=== PATIENT | male | born 1955 | race American Indian/Alaskan Native ===

== ENCOUNTER 2021-08-20 02:29 | Inpatient (IN) | payer MEDICARE, OTHER ==
[2021-08-20] MEDS ORDERED: SODIUM CHLORIDE 0.9% 1,000 ML IV STA (03:05)
[2021-08-20] MEDS ORDERED: MORPHINE 2 MG/ML CARPUJECT IVP STA (03:05)
[2021-08-20] MEDS ORDERED: ONDANSETRON 4 MG/2 ML VIAL IVP STA (03:05)
--- NOTE | 2021-08-20 03:10 | ED Physician Documentation ---
PD HPI ABD PAIN - Stated complaint Stated Complaint: CHEST/BACK PX - Chief complaint Chief Complaint: Cardiac - History obtained from History obtained from: Patient - Additional information Additional information: Patient is a 66-year-old male with No significant past medical history presenting for evaluation of epigastric abdominal pain that started suddenly at 10:00. The pain feels sharp. He has associated nausea and vomiting. The pain is migrated to the Mid back. He denies pain higher in the back or in the chest. He has never had similar pain. Nothing makes it better or worse. He denies eating anything that would have upset his stomach. He denies alcohol use. He denies drug use. Denies abnormal urination or difficulty with bowel movements.Patient tried aspirin at home without improvement in his symptoms. Review of Systems Constitutional: denies: Fever Nose: denies: Congestion Cardiac: denies: Chest pain / pressure Respiratory: denies: Dyspnea, Cough GI: reports: Abdominal Pain, Nausea, Vomiting : denies: Dysuria, Hematuria Musculoskeletal: reports: Back pain. denies: Neck pain Neurologic: denies: Headache PD PAST MEDICAL HISTORY - Past Medical History Cardiovascular: None Respiratory: None Endocrine/Autoimmune: None GI: Other : Frequency HEENT: Chronic vision loss, Other Psych: None Musculoskeletal: None Derm: None - Present Medications Home Medications: Ambulatory Orders Medication Instructions Recorded Confirmed No Known Home Medications 08/20/21 08/20/21 - Allergies Allergies/Adverse Reactions: Allergies Allergy/AdvReac Type Severity Reaction Status Date / Time No Known Drug Allergies Allergy Verified 08/20/21 02:46 PD ED PE NORMAL - General General: Alert and oriented X 3, No acute distress, Well developed/nourished - HEENT HEENT: Atraumatic, Moist mucous membranes - Neck Neck: Supple, no meningeal sign - Cardiac Cardiac: RRR, No murmur, Strong equal pulses - Respiratory Respiratory: No respiratory distress, Clear bilaterally - Abdomen Abdomen: Normal bowel sounds, Soft, Non distended, Other (Epigastric tenderness to palpation) - Back Back: No CVA TTP, No spinal TTP - Derm Derm: Warm and dry - Extremities Extremities: No edema - Neuro Neuro: Normal speech - Psych Psych: Normal mood Results - Vitals Vitals: Vital Signs - 24 hr 08/20/21 08/20/21 08/20/21 02:40 03:20 03:31 Temperature 35.6 C L Heart Rate 72 78 Respiratory 19 20 Rate Blood Pressure 149/78 H 132/80 H O2 Saturation 98 98 08/20/21 08/20/21 03:46 05:00 Temperature 36.4 C L 36.2 C L Heart Rate 87 Respiratory 16 Rate Blood Pressure 155/94 H O2 Saturation 92 Oxygen O2 Source Room air - EKG (time done) 0305 Rate: Rate (enter#) (68) Rhythm: NSR [place]: Normal Ischemia: No: ST depression - Labs Labs: Laboratory Tests 08/20/21 08/20/21 08/20/21 02:55 02:55 02:55 WBC 18.2 H RBC 4.95 Hgb 13.6 L Hct 43.6 MCV 88.1 MCH 27.5 MCHC 31.2 L RDW 14.6 Plt Count 271 MPV 10.3 Neut # (Auto) 16.0 H Lymph # (Auto) 1.4 L Luce # (Auto) 0.7 Eos # (Auto) 0.0 Baso # (Auto) 0.0 Absolute Nucleated RBC 0.00 Nucleated RBC % 0.0 Sodium 140 Potassium 3.5 Chloride 103 Carbon Dioxide 24 Anion Gap 13.0 BUN 11 Creatinine 1.3 H Estimated GFR (MDRD) 55 L Glucose 222 H Calcium 8.9 Total Bilirubin 0.5 AST 23 ALT 15 Alkaline Phosphatase 70 Troponin I High Sens 3.4 Total Protein 7.4 Albumin 4.0 Globulin 3.4 Albumin/Globulin Ratio 1.2 Lipase 1404 H SARS-CoV-2 (PCR) 08/20/21 04:15 WBC RBC Hgb Hct MCV MCH MCHC RDW Plt Count MPV Neut # (Auto) Lymph # (Auto) Luce # (Auto) Eos # (Auto) Baso # (Auto) Absolute Nucleated RBC Nucleated RBC % Sodium Potassium Chloride Carbon Dioxide Anion Gap BUN Creatinine Estimated GFR (MDRD) Glucose Calcium Total Bilirubin AST ALT Alkaline Phosphatase Troponin I High Sens Total Protein Albumin Globulin Albumin/Globulin Ratio Lipase SARS-CoV-2 (PCR) NOT DETECTED PD MEDICAL DECISION MAKING - ED course Complexity details: reviewed results, re-evaluated patient, d/w patient ED course: Patient with epigastric pain radiating to his back. Vital signs are stable. EKG is without acute ischemia and troponin is negative. Patient is epigastric tenderness and labs as well as exam are concerning for pancreatitis. CT scan c onfirms diagnosis as well. Patient had significant pain requiring multiple doses of pain medications. He is aware of need for admission. Does not appear septic. 0550- Discussed with overnight hospitalist, Dr. Espinoza who agrees to admit the patient. Departure - Departure Disposition: 66 [facility] DC/Xfer Clinical Impression: Acute pancreatitis Qualifiers: Pancreatitis type: idiopathic Acute pancreatitis complication: no infection or necrosis Qualified Code(s): K85.00 - Idiopathic acute pancreatitis without necrosis or infection Condition: Stable Discharge Date/Time: 08/20/21 06:15
[2021-08-20 03:16] LABS: BASOPHILS % (AUTO) 0.2 %; EOSINOPHILS % (AUTO) 0.1 %; HCT - HEMATOCRIT 43.6 % (42.0-52.0); HGB - HEMOGLOBIN 13.6 g/dL (14.0-18.0); LYMPHOCYTES # (AUTO) 1.4 10^3/uL (1.5-3.5); LYMPHOCYTES % (AUTO) 7.8 %; MEAN CORPUSCULAR HEMOGLOBIN 27.5 pg (27.0-31.0); MEAN CORPUSCULAR HGB CONC 31.2 g/dL (32.0-36.0); MEAN CORPUSCULAR VOLUME 88.1 fL (80.0-94.0); MEAN PLATELET VOLUME 10.3 fL (7.4-11.4); MONOCYTES # (AUTO) 0.7 10^3/uL (0.0-1.0); MONOCYTES % (AUTO) 3.7 %; NEUTROPHILS % (AUTO) 87.9 %; PLT - PLATELET COUNT 271 10^3/uL (130-450); RED BLOOD COUNT 4.95 10^6/uL (4.70-6.10); RED CELL DISTRIBUTION WIDTH 14.6 % (12.0-15.0); WHITE BLOOD COUNT 18.2 x10^3/uL (4.8-10.8)
[2021-08-20] MEDS ORDERED: HYDROmorphone 1 MG/ML CARPUJECT IVP STA ×2 (03:30→04:04)
[2021-08-20 04:02] LABS: ALBUMIN/GLOBULIN RATIO 1.2 (1.0-2.2); BILIRUBIN,TOTAL 0.5 mg/dL (0.2-1.0); CALCIUM 8.9 mg/dL (8.5-10.3); CREATININE 1.3 mg/dL (0.6-1.2); POTASSIUM 3.5 mmol/L (3.5-5.0); TOTAL PROTEIN 7.4 g/dL (6.7-8.2)
[2021-08-20] MEDS ORDERED: fentaNYL 100 MCG/2 ML VIAL IVP STA ×2 (04:42→08:29)
[2021-08-20] MEDS: D5NS W/20 MEQ KCL 1,000 ML IV SCH ×2 (06:37→16:37)
[2021-08-20] MEDS: SODIUM CHLORIDE FLUSH 0.9% 10 ML SYRINGE IVP PRN (06:37)
[2021-08-20] MEDS: HYDROmorphone 1 MG/ML CARPUJECT IVP PRN ×8 (06:37→23:36)
[2021-08-20] MEDS: ONDANSETRON 4 MG/2 ML VIAL IVP PRN ×2 (06:37→16:26)
[2021-08-20] MEDS: SODIUM CHLORIDE FLUSH 0.9% 10 ML SYRINGE IVP SCH ×3 (07:39→23:36)
--- NOTE | 2021-08-20 07:49 | HISTORY & PHYSICAL EXAMINATION ---
Chief Complaint - Chief Complaint Chief Complaint: epigastric pain History of Present Illness - Admitted From Admitted From:: [facility] ED - History Obtained From Records Reviewed: yes History obtained from: patient - History of Present Illness HPI Comment/Other: Patient is a 66-year-old male who presented to the ED with complaint of severe epigastric pain which he describes as a dull ache. He also complains of radiation to his back. Specifically the mid thoracic area. Symptoms started around 10:30 PM the previous night. He had just eaten a chicken pot pie couple of hours prior and thought his symptoms were due to food poisoning. The abdominal pain was associated with a feeling of abdominal distention. The symptoms subsided 2 hours after onset but then returned intensely. He took NyQuil and aspirin in an attempt to address the pain but with no success. As a result he came to the emergency department. Upon arrival to the ED he vomited around 3 AM. Work-up included a lipase level check which was 1404. His white blood cell count was elevated at 18.2. CT of the abdomen/pelvis showed findings of acute pancreatitis. There was punctate calcification in the pancreatic head near the expected location of the common bile duct. Gallstone pancreatitis was in consideration .The patient was presented for admission for further treatment. At the time of exam the patient had already received 2 doses of Dilaudid 1 mg each and fentanyl 50 mg however he appeared restless and in an excruciating amount of pain. It was such that he was unable to stay in 1 position for any length of time. For concern about an acute abdomen lactic acid was checked and noted to be 4.8. CT angio of the abdomen/pelvis was done and noted to be unremarkable. There was no evidence of large vessel stenosis, aneurysm or dissection. The acute pancreatitis was again noted without evidence of abscess, free air or pancreatic necrosis. The patient denied chest pain, dyspnea, fever or chills. History - Past Medical History Cardiovascular: reports: None Respiratory: reports: None Neuro: reports: None Endocrine/Autoimmune: reports: None GI: reports: Other : reports: Frequency HEENT: reports: Chronic vision loss, Other Psych: reports: None Musculoskeletal: reports: None Derm: reports: None MRSA Hx?: No - Past Surgical History Other past surgical history: Patient denies any previous surgeries - Family & Social History Family History Comment/Other: Patient's father was diabetic. He reports significant cancer history on the maternal side of his family. Living arrangement: At home Living Situation: Alone Social History Notes: He lives alone. He works at [employer]. He is independent of activities of daily living. He does not use tobacco products, alcohol or recreational substances. - POLST Patient has POLST: No POLST Status: Full Code Meds/Allgy - Home Medications Home Medications: Ambulatory Orders Medication Instructions Recorded Confirmed No Known Home Medications 08/20/21 08/20/21 - Allergies Allergies/Adverse Reactions: Allergies Allergy/AdvReac Type Severity Reaction Status Date / Time No Known Drug Allergies Allergy Verified 08/20/21 02:46 Review of Systems - Constitutional Constitutional: denies: Fatigue, Fever, Chills - Eyes Eyes: denies: Pain - Ears, Nose & Throat Ears, Nose & Throat: denies: Ear pain, Vertigo, Sore throat - Cardiovascular Cariovascular: denies: Chest pain, Edema, Lightheadedness, Syncope - Respiratory Respiratory: denies: Cough, Sputum production, Wheezing, SOB at rest, SOB with exertion - Gastrointestinal Gastrointestinal: reports: Abdominal pain, Nausea, Vomiting. denies: Abdominal distention, Constipation, Diarrhea - Genitourinary Genitourinary: denies: Dysuria, Frequency, Urgency, Hematuria - Musculoskeletal Musculoskeletal: reports: Back pain. denies: Muscle pain, Muscle aches, Stiffness - Integumentary Integumentary: denies: Rash, Pruritis, Lesions - Neurological Neurological: denies: General weakness, Headache, Dizziness - Psychiatric Psychiatric: denies: Depression, Anxiety - Endocrine Endocrine: denies: Polyuria, Polydypsia - Hematologic/Lymphatic Hematologic/Lymphatic: denies: Anemia, Bruising, Petechiae Prior Level of Functionality: He is independent of activities of daily living. Exam - Vital Signs Vital Signs: Vital Signs x48h Temp Pulse Pulse Resp BP BP Pulse Ox 08/20/21 07:38 36.4 C L 93 21 147/84 H 96 08/20/21 06:25 36.3 C L 92 18 147/80 H 93 08/20/21 05:00 36.2 C L 87 16 155/94 H 92 08/20/21 03:46 36.4 C L 08/20/21 03:31 35.6 C L 08/20/21 03:20 78 20 132/80 H 98 08/20/21 02:40 72 19 149/78 H 98 - Physical Exam General Appearance: positive: Alert, Moderate distress, Severe distress Eyes Bilateral: positive: PERRL, EOMI ENT: positive: No signs of dehydration Neck: positive: No JVD, Trachea midline Respiratory: positive: Chest non-tender, No respiratory distress, Breath sounds nml. negative: Wheezes, Rales, Rhonchi Cardiovascular: positive: Regular rate & rhythm, No murmur Abdomen: positive: No organomegaly, Nml bowel sounds, Tenderness. negative: Guarding, Rebound Back: positive: Nml inspection Skin: positive: Color nml, No rash, Warm, Dry Extremities: positive: Non-tender, Full ROM, Nml appearance, No pedal edema Neurologic/Psychiatric: positive: Oriented x3, Motor nml, Mood/affect nml Conclusion/Plan - Problem List (1) Acute pancreatitis Conclusion/Plan: Etiology undetermined. Gallstone pancreatitis initially suspected. However abdominal ultrasound was negative for any stones. There was no bile duct dilatation. CT angiogram of the abdomen was repeated due to severity of pain. This was negative for dissection, Stenosis or aneurysm. Pain management with Dilaudid IV as needed. N.p.o. for now. Initial lipase was 1404. We will trend lipase daily. IV hydration with normal saline at 100 mL/h. Qualifiers: Pancreatitis type: idiopathic Acute pancreatitis complication: no infection or necrosis Qualified Code(s): K85.00 - Idiopathic acute pancreatitis without necrosis or infection (2) Leukocytosis Conclusion/Plan: Reactive versus infectious. White count initially was 18. This improved to 16. Patient is afebrile. We will continue to monitor for now. If patient becomes febrile will obtain blood cultures and initiate empiric antibiotics. (3) Lactic acidosis Conclusion/Plan: Etiology undetermined. CT and CT angio of the abdomen pelvis was done. This was negative for abscess or pancreatic necrosis. It was also negative for any dissection, aneurysm or stenosis. Patient receiving IV hydration. Initial lactic acid was 4.8. Repeat lactic acid 4. Will trend. - Lab Results Fish Bones: 08/20/21 07:31 08/20/21 07:31 Core Measures - Anticipated LOS I expect patient to be DC'd or transferred within 96 hours.: Yes - DVT/VTE - Prophylaxis VTE/DVT Device ordered at admit?: Yes VTE/DVT Prophylaxis med ordered at admit?: Yes
[2021-08-20 07:50] LABS: BASOPHILS % (AUTO) 0.1 %; HCT - HEMATOCRIT 42.5 % (42.0-52.0); HGB - HEMOGLOBIN 13.4 g/dL (14.0-18.0); LYMPHOCYTES # (AUTO) 0.5 10^3/uL (1.5-3.5); LYMPHOCYTES % (AUTO) 2.9 %; MEAN CORPUSCULAR HEMOGLOBIN 27.6 pg (27.0-31.0); MEAN CORPUSCULAR HGB CONC 31.5 g/dL (32.0-36.0); MEAN CORPUSCULAR VOLUME 87.6 fL (80.0-94.0); MEAN PLATELET VOLUME 9.6 fL (7.4-11.4); MONOCYTES # (AUTO) 0.5 10^3/uL (0.0-1.0); NEUTROPHILS # (AUTO) 15.1 10^3/uL (1.5-6.6); NEUTROPHILS % (AUTO) 93.8 %; PLT - PLATELET COUNT 264 10^3/uL (130-450); RED BLOOD COUNT 4.85 10^6/uL (4.70-6.10); RED CELL DISTRIBUTION WIDTH 14.6 % (12.0-15.0); WHITE BLOOD COUNT 16.1 x10^3/uL (4.8-10.8)
[2021-08-20 07:56] LABS: CALCIUM 8.4 mg/dL (8.5-10.3); CREATININE 1.2 mg/dL (0.6-1.2); MAGNESIUM 2.2 mg/dL (1.7-2.8); POTASSIUM 3.9 mmol/L (3.5-5.0)
--- NOTE | 2021-08-20 08:07 | XRAY Report ---
PROCEDURE: Chest 1 View X-Ray INDICATIONS: pain TECHNIQUE: One view of the chest was acquired. COMPARISON: None FINDINGS: Surgical changes and devices: None. Lungs and pleura: No pleural effusions or pneumothorax. Lungs are clear. Mediastinum: Mediastinal contours appear normal. Heart size is normal. Bones and chest wall: No suspicious bony lesions. Overlying soft tissues appear unremarkable. IMPRESSION: No acute cardiopulmonary disease process. Reviewed by: Jane Lauren MD, PhD on 08/20/2021 8:06 AM PDT Approved by: Jane Lauren MD, PhD on 08/20/2021 8:06 AM PDT Station ID: [id number]
--- NOTE | 2021-08-20 08:40 | CT Report ---
PROCEDURE: Abdomen/Pelvis WO INDICATIONS: pancreatitis/elevated WBC TECHNIQUE: Noncontrast 5 mm thick sections acquired from the diaphragms to the symphysis. 5 mm coronal and sagi ttal reformats were then performed. For radiation dose reduction, the following was used: automated exposure control, adjustment of mA and/or kV according to patient size. COMPARISON: None. FINDINGS: Image quality: Excellent. ABDOMEN: Lung bases: Tiny right minor fissure juxta fissural node. Minor patchy opacities at the right posteri or lung base suggestive of atelectasis. Heart size is normal. Solid organs: Several round and some irregular hypodensities in the liver consistent with cysts. Spl een size is normal. There is mild peripancreatic inflammation and moderate inflammation and fluid lay ering along the anterior pararenal fascia extending caudally into the right lower quadrant. Punctate calcification in the pancreatic head near the expected location of the common duct. No other gallston es identified. Gallbladder, adrenal glands, and kidneys are normal. Tiny left upper pole parapelvic c yst present. Peritoneum and bowel: Stomach and small bowel loops are within normal limits. The colon is largely de compressed and there are several diverticula in the descending colon. Small amount of fluid layers al joanne the anterior pararenal fascia. No free air. Nodes and vessels: Several borderline lymph nodes are present in the right lower quadrant mesentery. No retroperitoneal adenopathy. Aorta and IVC are of normal caliber. Miscellaneous: No ventral hernias. PELVIS: Genitourinary: Bladder wall thickness is normal. There is a diverticulum arising from the right late ral urinary bladder. Prostate gland is moderately enlarged. Miscellaneous: Bilateral small fat-containing inguinal hernias. No pelvic adenopathy. Bones: Partial ankylosis of the sacroiliac joints. No suspicious bony lesions. No vertebral body co mpression fractures. IMPRESSION: 1. Findings of acute pancreatitis. 2. Punctate calcification in the pancreatic head near the expected location of the common duct. Galls tone pancreatitis should be considered. Alternatively, this may be sequelae of chronic pancreatitis i f this calcification is not intraductal. 3. Several hepatic cysts. 4. Descending colon diverticulosis. 5. Prostatomegaly. 6. Preliminary report concordant with final interpretation. Reviewed by: Rut Raymundo MD on 08/20/2021 8:39 AM PDT Approved by: Rut Raymundo MD on 08/20/2021 8:39 AM PDT Station ID: [id number]
--- NOTE | 2021-08-20 08:57 | Ultrasound Report ---
PROCEDURE: Abdomen Limited INDICATIONS: abdominal pain TECHNIQUE: Real-time focused scanning was performed of the abdomen, with image documentation. COMPARISON: CT of abdomen and pelvis from the same day. FINDINGS: Liver is normal in size. Increased liver parenchymal echotexture is seen. Multiple well-circumscribed anechoic area again seen scattered in liver parenchyma unchanged from CT study and measures up to 3. 3 x 2.0 x 2.4 cm in size in right hepatic lobe. No gross solid-appearing hepatic lesion. There is no gallstone. No gallbladder wall thickening or pericholecystic fluid. No sonographic Caldwell 's sign. No intrahepatic biliary ductal dilatation is seen. Common bile duct measures up to 4.9 mm in diameter and is within normal limits. Pancreas is obscured by overlying bowel gas. Right kidney measures 10.7 cm in length and 1.9 cm in cortical thickness. No hydronephrosis or nephro lithiasis. No solid-appearing renal lesion. IMPRESSION: 1. Hepatic steatosis and multiple hepatic cysts as above. This was also seen on CT study. No gross so lid-appearing hepatic lesion. 2. Normal-appearing gallbladder. No biliary ductal dilatation. 3. Pancreas is obscured by overlying bowel gas. Reviewed by: Levar Branch MD on 08/20/2021 8:55 AM PDT Approved by: Levar Branch MD on 08/20/2021 8:55 AM PDT Station ID: [id number]
--- NOTE | 2021-08-20 11:09 | PHARMACY PROGRESS NOTE ---
- Best Possible Medication History Admit Date and Time: 08/20/21 0602 Processed by: Pharmacy Medication History completed: Yes Patient Interview: Pt unable to participate Secondary Source(s): Insurance records As the person ultimately responsible for medication therapy, providers are able to order a medication from an existing home medication list in [facility] via the "Reconcile Routine" prior to Confirmation of that medication by support coordinator. Such practice is discouraged except when the physician, in their clinical judgment, deems that a medical need exists for a medication without regard to previous use.
[2021-08-20] MEDS ORDERED: KETOROLAC 15 MG/ML VIAL IVP PRN (12:08)
[2021-08-20] MEDS ORDERED: IOPAMIDOL-300 50 ML VIAL ONE (13:05)
--- NOTE | 2021-08-20 13:41 | CONSULTATION NOTE ---
Referring Provider Consult Date: 08/20/21 Chief Complaint - Chief Complaint Chief Complaint: upper abdominal pain History of Present Illness - Admitted From Admitted From:: ed - History Obtained From Records Reviewed: yes History obtained from: pt Exam Limitations: none - History of Present Illness HPI Comment/Other: acute onset severe epigastric pain going to the back. some shortness of breath. states always had been in good health History - Past Medical History Cardiovascular: reports: None Respiratory: reports: None Neuro: reports: None Endocrine/Autoimmune: reports: None GI: reports: Other : reports: Frequency HEENT: reports: Chronic vision loss, Other Psych: reports: None Musculoskeletal: reports: None Derm: reports: None MRSA Hx?: No - POLST Patient has POLST: No Meds/Allgy - Home Medications Home Medications: Ambulatory Orders Medication Instructions Recorded Confirmed No Known Home Medications 08/20/21 08/20/21 - Allergies Allergies/Adverse Reactions: Allergies Allergy/AdvReac Type Severity Reaction Status Date / Time No Known Drug Allergies Allergy Verified 08/20/21 02:46 Review of Systems - Other Findings Other Findings: 10 pt ros as above otherwise unremarkable. no prior similar symptoms Exam - Vital Signs Reviewed Vital Signs: Yes Vital Signs: Vital Signs x48h Temp Pulse Resp BP Pulse Ox 08/20/21 12:15 36.5 C 103 H 22 147/81 H 95 08/20/21 10:03 154/79 H 08/20/21 09:00 97 149/78 H 08/20/21 07:38 36.4 C L 93 21 147/84 H 96 08/20/21 06:25 36.3 C L 92 18 147/80 H 93 - Physical Exam General Appearance: positive: Alert, Mild distress Eyes Bilateral: positive: PERRL, EOMI, No scleral icterus ENT: positive: No signs of dehydration Neck: positive: No JVD, Trachea midline Respiratory: positive: No respiratory distress Cardiovascular: positive: Regular rate & rhythm Abdomen: positive: Other (mild distension and tenderness) Neurologic/Psychiatric: positive: Oriented x3 Conclusion/Plan - Problem List (1) Acute pancreatitis Conclusion/Plan: he has rather severe acute pancreatitis. likely due to biliary sludge/ small stones. he has mild respiratory compromise at this time. he has history of urinary retention. recommend icu transfer, ngo, close observation. if his symptoms are progressing I recommend transfer to a hospital that can offer a higher level of care. he is at risk of developing systemic inflammatory response syndrome. he already meets some criteria for sirs. Qualifiers: Pancreatitis type: idiopathic Acute pancreatitis complication: no infection or necrosis Qualified Code(s): K85.00 - Idiopathic acute pancreatitis without necrosis or infection - Lab Results Fish Bones: 08/20/21 07:31 08/20/21 07:31 - Diagnostic Imaging Results Diagnostic Imaging Results: positive: Read contemporaneously (severe acute pancreatitis likely due to passing small gallstone/ sludge)
--- NOTE | 2021-08-20 14:56 | CT Report ---
PROCEDURE: ANGIO ABDOMEN/PELVIS W INDICATIONS: severe abdominal pain CONTRAST: IV CONTRAST: Isovue 300 ml: 100 PO CONTRAST: *NO PO CONTRAST TECHNIQUE: Helical axial CT of the abdomen and pelvis were obtained after intravenous contrast injection utilizi ng an angiographic protocol, and reformatted in multiple planes. For radiation dose reduction, the f ollowing was used: automated exposure control, adjustment of mA and/or kV according to patient size. COMPARISON: Noncontrast CT abdomen and pelvis 08/20/2021 FINDINGS: ABDOMEN: Lung bases: Tiny right minor fissure juxta fissural node. Minor patchy opacities at the right posteri or lung base suggestive of atelectasis. Heart size is normal. Moderate hiatal hernia Solid organs: Several round and some irregular hypodensities in the liver consistent with cysts. Spl een size is normal. There is mild peripancreatic inflammation and moderate inflammation and fluid lay ering along the anterior pararenal fascia extending caudally into the right lower quadrant. No eviden ce of abscess or pancreatic necrosis. Punctate calcification in the pancreatic head near the expected location of the common duct. No other gallstones identified. Gallbladder, adrenal glands, and kidney s are normal. Tiny left upper pole parapelvic cyst present. Peritoneum and bowel: Stomach and small bowel loops are within normal limits. Mild duodenal wall thic kening and inflammatory changes likely secondary. The colon is largely decompressed and there are sev eral diverticula in the descending colon. Small amount of fluid layers along the anterior pararenal f ascia. No free air. Nodes and vessels: Several borderline lymph nodes are present in the right lower quadrant mesentery. No retroperitoneal adenopathy. Aorta and IVC are of normal caliber. No evidence of aneurysm or dissec tion. Origins of the great vessels are unremarkable. Miscellaneous: No ventral hernias. PELVIS: Genitourinary: Bladder wall thickness is normal. There is a diverticulum arising from the right late ral urinary bladder. Prostate gland is moderately enlarged. Miscellaneous: Bilateral small fat-containing inguinal hernias. No pelvic adenopathy. Bones: Partial ankylosis of the sacroiliac joints. No suspicious bony lesions. No vertebral body co mpression fractures. IMPRESSION: 1. Acute pancreatitis without evidence of abscess, free air or pancreatic necrosis. 2. Unremarkable CT angiogram abdomen and pelvis. No evidence of significant large vessel stenosis, a neurysm or dissection. 3. Sacroiliac joint ankylosis Reviewed by: Héctor Ramos MD on 08/20/2021 1:54 PM TAMMI Approved by: Héctor Ramos MD on 08/20/2021 1:54 PM TAMMI Station ID: [id number]
[2021-08-20] MEDS ORDERED: IOPAMIDOL-300 100 ML VIAL IVP ONE (15:16)
[2021-08-20] MEDS ORDERED: IOPAMIDOL-300 50 ML VIAL IVP ONE (15:20)
[2021-08-20] MEDS: PROCHLORPERAZINE 10 MG/2 ML VIAL IVP PRN (20:09)
[2021-08-21] MEDS: SODIUM CHLORIDE FLUSH 0.9% 10 ML SYRINGE IVP SCH ×3 (01:48→05:56)
[2021-08-21] MEDS: HYDROmorphone 1 MG/ML CARPUJECT IVP PRN ×4 (01:48→08:26)
[2021-08-21] MEDS: D5NS W/20 MEQ KCL 1,000 ML IV SCH ×2 (03:24→13:06)
[2021-08-21 05:54] LABS: BASOPHILS % (AUTO) 0.2 %; EOSINOPHILS % (AUTO) 0.5 %; HCT - HEMATOCRIT 43.9 % (42.0-52.0); HGB - HEMOGLOBIN 13.6 g/dL (14.0-18.0); LYMPHOCYTES % (AUTO) 3.4 %; MEAN CORPUSCULAR HEMOGLOBIN 27.2 pg (27.0-31.0); MEAN CORPUSCULAR VOLUME 87.8 fL (80.0-94.0); MEAN PLATELET VOLUME 9.6 fL (7.4-11.4); NEUTROPHILS % (AUTO) 90.5 %; PLT - PLATELET COUNT 253 10^3/uL (130-450); RED CELL DISTRIBUTION WIDTH 15.4 % (12.0-15.0); WHITE BLOOD COUNT 21.9 x10^3/uL (4.8-10.8)
[2021-08-21 06:05] LABS: ABNORMAL LYMPHS % (MANUAL) 0 %
[2021-08-21 06:23] LABS: BAND NEUTROPHILS % (MANUAL) 4 %; DIFFERENTIAL COMMENT MANUAL DIFFERENTIAL; LYMPHOCYTES # (MANUAL) 0.9 10^3/uL (1.5-3.5); LYMPHOCYTES % (MANUAL) 4 %; MONOCYTES # (MANUAL) 0.9 10^3/uL (0.0-1.0); NEUTROPHILS # (MANUAL) 20.1 10^3/uL (1.5-6.6); PLATELET ESTIMATE, MANUAL NORMAL (130-450,000) (NORMAL); PLATELET MORPHOLOGY NORMAL APPEARANCE (NORMAL); RBC MORPHOLOGY (MULTIPLE) NORMAL APPEARANCE (NORMAL); WBC MORPHOLOGY (MULTIPLE) NORMAL APPEARANCE (NORMAL)
[2021-08-21 06:28] LABS: CALCIUM 8.1 mg/dL (8.5-10.3); CREATININE 1.1 mg/dL (0.6-1.2); POTASSIUM 4.1 mmol/L (3.5-5.0)
--- NOTE | 2021-08-21 07:32 | PROVIDER PROGRESS NOTE ---
Assessment/Plan - Problem List (1) Acute pancreatitis Qualifiers: Pancreatitis type: idiopathic Acute pancreatitis complication: no infection or necrosis Qualified Code(s): K85.00 - Idiopathic acute pancreatitis without necrosis or infection Assessment/Plan: Improving. Yesterday patient required Dilaudid and fentanyl for pain control. Despite this his pain stayed around 9 on 10. Today he reports 4 out of 10 pain. The frequency of his Dilaudid has been decreased to 1 mg IV every 6 hours as needed. Oxycodone 5 mg p.o. every 6 hours as needed was also ordered. Lipase improved from 1404 yesterday down to 828 today. Patient tolerated a clear liquid diet for breakfast. Diet is being advanced to full liquid diet for lunch. Continue IV hydration. (2) Leukocytosis Assessment/Plan: Etiology undetermined. Thought to be reactive. White count increased from 16.1 yesterday up to 21.9 today. Patient is afebrile. Chest x-ray and blood cultures ordered. (3) Lactic acidosis Assessment/Plan: Improved. Etiology undetermined Lactic acid this morning was 1.6 with a repeat of 2.8 shortly afterwards. Will trend X1 more CXR and blood cultures ordered We will continue IV hydration. - Current Meds Current Meds: Current Medications Generic Name Dose Route Start Last Admin Trade Name Freq PRN Reason Stop Dose Admin Hydromorphone HCl 1 mg 08/20/21 06:12 08/21/21 05:56 Hydromorphone 1 Mg/Ml Carpuject IVP 1 mg Q2HR PRN Administration PAIN Potassium Chloride/Dextrose/Sod Cl 1,000 mls @ 100 mls/hr 08/20/21 07:00 08/21/21 03:24 D5ns W/20 Meq Kcl IV 100 mls/hr .Q10H JAROD Administration Ondansetron HCl 4 mg 08/20/21 06:02 08/20/21 16:26 Ondansetron 4 Mg/2 Ml Vial IVP 4 mg Q6HR PRN Administration Nausea / Vomiting Prochlorperazine Edisylate 10 mg 08/20/21 06:02 08/20/21 20:09 Prochlorperazine 10 Mg/2 Ml Vial IVP 10 mg Q6HR PRN Administration Nausea / Vomiting Sodium Chloride 10 ml 08/20/21 06:02 08/20/21 06:37 Sodium Chloride Flush 0.9% 10 Ml Syringe IVP 10 ml PRN PRN Administration NEEDED PER PROVIDER ORDERS Sodium Chloride 10 ml 08/20/21 09:00 08/21/21 05:56 Sodium Chloride Flush 0.9% 10 Ml Syringe IVP 10 ml 0100,0900,1700 [facility] Administration - Lab Result Fish Bone Diagrams: 08/21/21 05:40 08/21/21 05:40 - Additional Planning My Orders: My Active Orders 08/21/21 Breakfast Clear Liquid Diet [DIET] 08/21/21 09:00 LACTIC ACID, VENOUS [CHEM] Q4H Subjective - Subjective Patient Reports: Other (He was resting calmly in bed. Reported significant improvement in his pain. Pain is rated currently 4 out of 10.) Objective Vital Signs: Vital Signs - 24 hr 08/20/21 08/20/21 08/20/21 07:38 09:00 10:03 Temperature 36.4 C L Heart Rate [ 93 97 Brachial] Respiratory 21 Rate Blood Pressure 147/84 H 149/78 H 154/79 H [Left Brachial artery] O2 Saturation 96 08/20/21 08/20/21 08/20/21 12:15 15:28 20:42 Temperature 36.5 C 36.5 C 36.6 C Heart Rate [ 103 H 115 H 114 H Brachial] Respiratory 22 23 21 Rate Blood Pressure 147/81 H 147/79 H 147/90 H [Left Brachial artery] O2 Saturation 95 91 L 94 08/20/21 08/20/21 08/21/21 23:38 23:59 05:29 Temperature 36.6 C 36.7 C Heart Rate [ 118 H 118 H 117 H Brachial] Respiratory 18 16 18 Rate Blood Pressure 138/89 H 140/90 H [Left Brachial artery] O2 Saturation 91 L 95 93 Oxygen O2 Source Nasal cannula I&O (Last 24 Hrs): Intake and Output Totals x24h 08/19/21 08/20/21 08/21/21 23:59 23:59 23:59 Intake Total 2541.666 416.667 Output Total 250 500 Balance 2291.666 -83.333 General: Alert, Oriented x3, Mild distress, Moderate distress HEENT: PERRLA, EOMI Neck: Supple, No JVD Neuro: Alert, Non Focal, Oriented Times 3 Cardiovascular: Other (Tachycardia) Respiratory: Chest non-tender, No respiratory distress, Breath sounds nml Abdomen: Normal bowel sounds, Soft, Other (mild to moderate tenderness) Extremities: No clubbing, No cyanosis, No edema Skin: No rashes, No breakdown, No significant lesion - Results Results: Laboratory Results WBC 21.9 x10^3/uL (4.8-10.8) H 08/21/21 05:40 RBC 5.00 10^6/uL (4.70-6.10) 08/21/21 05:40 Hgb 13.6 g/dL (14.0-18.0) L 08/21/21 05:40 Hct 43.9 % (42.0-52.0) 08/21/21 05:40 MCV 87.8 fL (80.0-94.0) 08/21/21 05:40 MCH 27.2 pg (27.0-31.0) 08/21/21 05:40 MCHC 31.0 g/dL (32.0-36.0) L 08/21/21 05:40 RDW 15.4 % (12.0-15.0) H 08/21/21 05:40 Plt Count 253 10^3/uL (130-450) 08/21/21 05:40 MPV 9.6 fL (7.4-11.4) 08/21/21 05:40 Neut # (Auto) Not Reportable 08/21/21 05:40 Lymph # (Auto) Not Reportable 08/21/21 05:40 [place] # (Auto) Not Reportable 08/21/21 05:40 Eos # (Auto) Not Reportable 08/21/21 05:40 Baso # (Auto) Not Reportable 08/21/21 05:40 Absolute Nucleated RBC Not Reportable 08/21/21 05:40 Total Counted 100 08/21/21 05:40 Band Neuts % (Manual) 4 % (0-10) 08/21/21 05:40 Abnorm Lymph % (Manual) 0 % 08/21/21 05:40 Nucleated RBC % Not Reportable 08/21/21 05:40 Neutrophils # (Manual) 20.1 10^3/uL (1.5-6.6) H 08/21/21 05:40 Lymphocytes # (Manual) 0.9 10^3/uL (1.5-3.5) L 08/21/21 05:40 Monocytes # (Manual) 0.9 10^3/uL (0.0-1.0) 08/21/21 05:40 Eosinophils # (Manual) 0.0 10^3/uL (0-0.7) 08/21/21 05:40 Basophils # (Manual) 0.0 10^3/uL (0-0.1) 08/21/21 05:40 Differential Comment MANUAL DIFFERENTIAL 08/21/21 05:40 WBC Morphology NORMAL APPEARANCE (NORMAL) 08/21/21 05:40 Platelet Estimate NORMAL (130-450,000) (NORMAL) 08/21/21 05:40 Platelet Morphology NORMAL APPEARANCE (NORMAL) 08/21/21 05:40 RBC Morph Micro Appear NORMAL APPEARANCE (NORMAL) 08/21/21 05:40 Sodium 143 mmol/L (135-145) 08/21/21 05:40 Potassium 4.1 mmol/L (3.5-5.0) 08/21/21 05:40 Chloride 111 mmol/L (101-111) 08/21/21 05:40 Carbon Dioxide 24 mmol/L (21-32) 08/21/21 05:40 Anion Gap 8.0 (6-13) 08/21/21 05:40 BUN 12 mg/dL (6-20) 08/21/21 05:40 Creatinine 1.1 mg/dL (0.6-1.2) 08/21/21 05:40 Estimated GFR (MDRD) 67 (>89) L 08/21/21 05:40 Glucose 161 mg/dL (70-100) H 08/21/21 05:40 Lactic Acid 1.6 mmol/L (0.5-2.2) 08/21/21 05:40 Calcium 8.1 mg/dL (8.5-10.3) L 08/21/21 05:40 Magnesium 2.2 mg/dL (1.7-2.8) 08/20/21 07:31 Total Bilirubin 0.5 mg/dL (0.2-1.0) 08/20/21 02:55 AST 23 IU/L (10-42) 08/20/21 02:55 ALT 15 IU/L (10-60) 08/20/21 02:55 Alkaline Phosphatase 70 IU/L (42-121) 08/20/21 02:55 Troponin I High Sens 3.4 ng/L (2.3-19.7) 08/20/21 02:55 Total Protein 7.4 g/dL (6.7-8.2) 08/20/21 02:55 Albumin 4.0 g/dL (3.2-5.5) 08/20/21 02:55 Globulin 3.4 g/dL (2.1-4.2) 08/20/21 02:55 Albumin/Globulin Ratio 1.2 (1.0-2.2) 08/20/21 02:55 Triglycerides 65 mg/dL (-149) 08/20/21 07:31 Lipase 828 U/L (22-51) H 08/21/21 05:40 SARS-CoV-2 (PCR) NOT DETECTED 08/20/21 04:15 - Procedures Procedures: Procedures ENDOSC POLYPECTOMY OF LG INTEST (09/13/14) INJECT/INFUSE NEC (09/13/14) ABX Reporting Has patient been on IV antibiotics over the past 48 hours?: No
[2021-08-21] MEDS ORDERED: HYDROmorphone 1 MG/ML CARPUJECT IVP PRN (08:38)
[2021-08-21] MEDS: oxyCODONE 5 MG TABLET PO PRN ×2 (10:58→17:07)
--- NOTE | 2021-08-21 11:09 | XRAY Report ---
PROCEDURE: Chest 1 View X-Ray INDICATIONS: Leukocytosis, increased oxygen requirement TECHNIQUE: One view of the chest was acquired. COMPARISON: 22 chest radiograph FINDINGS: The lung volumes with bibasilar and streaky linear atelectasis adjacent to the right major fissure. New consolidative airspace opacity in the medial right lung base. No pleural effusion or pneumothorax . Heart size is normal. IMPRESSION: Low lung volumes with bibasilar atelectasis and some streaky linear atelectasis adjacent to the right major fissure. New consolidative airspace opacity in the medial right lung base could be atelectatic or infectious. Reviewed by: Jean Gandhi MD on 08/21/2021 11:07 AM PDT Approved by: Jean Gandhi MD on 08/21/2021 11:07 AM PDT Station ID: [id number]
[2021-08-21] MEDS: AZITHROMYCIN INJ 500 MG in SODIUM CHLORIDE 0.9% 250 ML IV SCH (13:59)
[2021-08-21] MEDS: cefTRIAXone 1 GM in SODIUM CHLORIDE 0.9% MINIBAG 100 ML IV SCH (14:56)
[2021-08-21] MEDS: guaiFENesin 600 MG TABLET PO SCH (22:37)
[2021-08-22] MEDS: oxyCODONE 5 MG TABLET PO PRN ×5 (00:15→20:38)
[2021-08-22] MEDS: D5NS W/20 MEQ KCL 1,000 ML IV SCH (00:21)
[2021-08-22 05:29] LABS: CALCIUM 7.7 mg/dL (8.5-10.3); CREATININE 0.9 mg/dL (0.6-1.2); POTASSIUM 3.6 mmol/L (3.5-5.0)
[2021-08-22 05:43] LABS: BASOPHILS % (AUTO) 0.2 %; HCT - HEMATOCRIT 38.2 % (42.0-52.0); HGB - HEMOGLOBIN 11.9 g/dL (14.0-18.0); LYMPHOCYTES % (AUTO) 3.3 %; MEAN CORPUSCULAR HEMOGLOBIN 27.3 pg (27.0-31.0); MEAN CORPUSCULAR HGB CONC 31.2 g/dL (32.0-36.0); MEAN CORPUSCULAR VOLUME 87.6 fL (80.0-94.0); MEAN PLATELET VOLUME 10.1 fL (7.4-11.4); MONOCYTES % (AUTO) 4.8 %; PLT - PLATELET COUNT 206 10^3/uL (130-450); RED BLOOD COUNT 4.36 10^6/uL (4.70-6.10); RED CELL DISTRIBUTION WIDTH 15.3 % (12.0-15.0); WHITE BLOOD COUNT 19.7 x10^3/uL (4.8-10.8)
[2021-08-22 05:56] LABS: ABNORMAL LYMPHS % (MANUAL) 0 %
[2021-08-22 06:18] LABS: BAND NEUTROPHILS % (MANUAL) 8 %; DIFFERENTIAL COMMENT MANUAL DIFFERENTIAL; LYMPHOCYTES # (MANUAL) 0.8 10^3/uL (1.5-3.5); LYMPHOCYTES % (MANUAL) 4 %; MONOCYTES # (MANUAL) 0.8 10^3/uL (0.0-1.0); NEUTROPHILS # (MANUAL) 18.1 10^3/uL (1.5-6.6); PLATELET ESTIMATE, MANUAL NORMAL (130-450,000) (NORMAL); RBC MORPHOLOGY (MULTIPLE) NORMAL APPEARANCE (NORMAL)
[2021-08-22] MEDS ORDERED: D5NS W/20 MEQ KCL 1,000 ML IV SCH (07:40)
--- NOTE | 2021-08-22 07:44 | PROVIDER PROGRESS NOTE ---
Assessment/Plan - Problem List (1) Community acquired pneumonia Qualifiers: Laterality: right Lung location: lower lobe of lung Qualified Code(s): J18.9 - Pneumonia, unspecified organism Assessment/Plan: Patient was started on Rocephin and azithromycin yesterday. His oxygen requirement ranges between 0 and 2 L via nasal cannula to keep his oxygenation 90s. White blood cell count improved slightly from 21.9 yesterday down to 19.7 today. Lactic acid today was normal at 1.7. Due to slightly increased oxygen requirement D-dimer was checked and noted to be 1095. A CTAngio chest to rule out PE was negative. Patient had exposure to someone with COVID on 08/20/2021. Consequently he is in isolation. He would need to quarantine until 08/29/2021. His initial COVID 19 test at time of admission was negative. The COVID test will be repeated on 08/24/2021 (2) Acute pancreatitis Qualifiers: Pancreatitis type: idiopathic Acute pancreatitis complication: no infection or necrosis Qualified Code(s): K85.00 - Idiopathic acute pancreatitis without necrosis or infection Assessment/Plan: Improving. Patient reports only mild pain today. Lipase level improved from 828 down to 213 today. Patient tolerated clear liquid and a full liquid diet yesterday. Been advanced to a soft low fiber diet. (3) Leukocytosis Assessment/Plan: Likely secondary to community-acquired pneumonia. Patient is on antibiotics Rocephin and azithromycin. White blood cell count today is 19.7 (4) Lactic acidosis Assessment/Plan: Resolved - Current Meds Current Meds: Current Medications Generic Name Dose Route Start Last Admin Trade Name Clintonq PRN Reason Stop Dose Admin Guaifenesin 600 mg 08/21/21 23:00 08/21/21 22:37 Guaifenesin 600 Mg Tablet PO 600 mg BID JAROD Administration Ceftriaxone Sodium 1 gm/ 100 mls @ 200 mls/hr 08/21/21 13:39 08/21/21 15:26 Sodium Chloride IV Infused DAILY JAROD Infusion Azithromycin 500 mg/ Sodium 250 mls @ 250 mls/hr 08/21/21 13:39 08/21/21 15:02 Chloride IV 08/23/21 09:59 Infused DAILY JAROD Infusion Ondansetron HCl 4 mg 08/20/21 06:02 08/20/21 16:26 Ondansetron 4 Mg/2 Ml Vial IVP 4 mg Q6HR PRN Administration Nausea / Vomiting Prochlorperazine Edisylate 10 mg 08/20/21 06:02 08/20/21 20:09 Prochlorperazine 10 Mg/2 Ml Vial IVP 10 mg Q6HR PRN Administration Nausea / Vomiting Sodium Chloride 10 ml 08/20/21 06:02 08/20/21 06:37 Sodium Chloride Flush 0.9% 10 Ml Syringe IVP 10 ml PRN PRN Administration NEEDED PER PROVIDER ORDERS Sodium Chloride 10 ml 08/20/21 09:00 08/21/21 05:56 Sodium Chloride Flush 0.9% 10 Ml Syringe IVP 10 ml 0100,0900,1700 JAROD Administration - Lab Result Fish Bone Diagrams: 08/22/21 05:02 08/22/21 05:02 - Additional Planning My Orders: My Active Orders 08/21/21 10:45 Blood Culture [CULTURE, BLOOD #1] [] Routine 08/21/21 10:52 Blood Culture [CULTURE, BLOOD #2] [] Routine 08/21/21 13:39 Azithromycin Inj [Zithromax Inj] 500 mg Sodium Chloride 0.9% [Normal Saline 0.9%] 250 ml IV DAILY cefTRIAXone [Rocephin] 1 gm Sodium Chloride 0.9% Minibag [Normal Saline 0.9% Minibag] 100 ml IV DAILY 08/22/21 Breakfast Soft (Low Fiber) Diet [DIET] 08/22/21 07:37 ANGIO CHEST W/WO [CT] Routine 08/22/21 07:40 D5ns W/20 Meq KCl 1,000 ml IV 60 mls/hr 08/22/21 07:40 oxyCODONE [Roxicodone] 5 mg PO Q4HR PRN Subjective - Subjective Patient Reports: Other (Resting calmly in bed. Breathing on room air but slightly labored. Reports significant improvement in abdominal pain. Has not had a bowel movement since admission. Does not feel like eating lunch but tolerated a clear liquid diet and full liquid diet yesterday.) Objective Vital Signs: Vital Signs - 24 hr 08/21/21 08/21/21 08/21/21 08:27 10:58 10:59 Temperature Heart Rate [ 115 H 120 H Brachial] Respiratory 22 Rate Blood Pressure [Left Brachial artery] O2 Saturation 93 91 L 93 08/21/21 08/21/21 08/21/21 13:00 13:30 16:59 Temperature 36.5 C 36.7 C Heart Rate [ 119 H 74 Brachial] Respiratory 20 22 18 Rate Blood Pressure 140/86 H 119/84 H [Left Brachial artery] O2 Saturation 91 L 93 93 08/21/21 08/21/21 08/22/21 20:17 22:35 00:25 Temperature 37.3 C 36.5 C 37.0 C Heart Rate [ 132 H 116 H 109 H Brachial] Respiratory 28 H 28 H 22 Rate Blood Pressure 137/84 H 137/82 H 118/57 L [Left Brachial artery] O2 Saturation 93 93 94 08/22/21 03:38 Temperature 37.2 C Heart Rate [ 105 H Brachial] Respiratory 26 H Rate Blood Pressure 131/80 H [Left Brachial artery] O2 Saturation 94 Oxygen O2 Source Nasal cannula I&O (Last 24 Hrs): Intake and Output Totals x24h 08/20/21 08/21/21 08/22/21 23:59 23:59 23:59 Intake Total 2541.666 3278.334 350 Output Total 250 1100 575 Balance 2291.666 2178.334 -225 General: Alert, Oriented x3, Mild distress HEENT: Atraumatic, PERRLA, EOMI Neck: Supple, No JVD Neuro: Alert, Oriented Times 3 Cardiovascular: Regular rate Respiratory: Chest non-tender, Other (Mildly labored breathing, Coarse breath sounds) Abdomen: Normal bowel sounds, Soft, Other (Mild tenderness) Extremities: No clubbing, No cyanosis, No edema, No tenderness/swelling Skin: No rashes, No breakdown, No significant lesion - Results Results: Laboratory Results WBC 19.7 x10^3/uL (4.8-10.8) H 08/22/21 05:02 RBC 4.36 10^6/uL (4.70-6.10) L 08/22/21 05:02 Hgb 11.9 g/dL (14.0-18.0) L 08/22/21 05:02 Hct 38.2 % (42.0-52.0) L 08/22/21 05:02 MCV 87.6 fL (80.0-94.0) 08/22/21 05:02 MCH 27.3 pg (27.0-31.0) 08/22/21 05:02 MCHC 31.2 g/dL (32.0-36.0) L 08/22/21 05:02 RDW 15.3 % (12.0-15.0) H 08/22/21 05:02 Plt Count 206 10^3/uL (130-450) 08/22/21 05:02 MPV 10.1 fL (7.4-11.4) 08/22/21 05:02 Neut # (Auto) Not Reportable 08/22/21 05:02 Lymph # (Auto) Not Reportable 08/22/21 05:02 Lane # (Auto) Not Reportable 08/22/21 05:02 Eos # (Auto) Not Reportable 08/22/21 05:02 Baso # (Auto) Not Reportable 08/22/21 05:02 Absolute Nucleated RBC Not Reportable 08/22/21 05:02 Total Counted 100 08/22/21 05:02 Band Neuts % (Manual) 8 % (0-10) 08/22/21 05:02 Abnorm Lymph % (Manual) 0 % 08/22/21 05:02 Nucleated RBC % Not Reportable 08/22/21 05:02 Neutrophils # (Manual) 18.1 10^3/uL (1.5-6.6) H 08/22/21 05:02 Lymphocytes # (Manual) 0.8 10^3/uL (1.5-3.5) L 08/22/21 05:02 Monocytes # (Manual) 0.8 10^3/uL (0.0-1.0) 08/22/21 05:02 Eosinophils # (Manual) 0.0 10^3/uL (0-0.7) 08/22/21 05:02 Basophils # (Manual) 0.0 10^3/uL (0-0.1) 08/22/21 05:02 Differential Comment MANUAL DIFFERENTIAL 08/22/21 05:02 WBC Morphology NORMAL APPEARANCE (NORMAL) 08/21/21 05:40 Platelet Estimate NORMAL (130-450,000) (NORMAL) 08/22/21 05:02 Platelet Morphology NORMAL APPEARANCE (NORMAL) 08/21/21 05:40 RBC Morph Micro Appear NORMAL APPEARANCE (NORMAL) 08/22/21 05:02 D-Dimer > 1050.0 ng/mL (200.0-255.0) H 08/21/21 22:44 Sodium 138 mmol/L (135-145) 08/22/21 05:02 Potassium 3.6 mmol/L (3.5-5.0) 08/22/21 05:02 Chloride 106 mmol/L (101-111) 08/22/21 05:02 Carbon Dioxide 25 mmol/L (21-32) 08/22/21 05:02 Anion Gap 7.0 (6-13) 08/22/21 05:02 BUN 13 mg/dL (6-20) 08/22/21 05:02 Creatinine 0.9 mg/dL (0.6-1.2) 08/22/21 05:02 Estimated GFR (MDRD) 84 (>89) L 08/22/21 05:02 Glucose 137 mg/dL (70-100) H 08/22/21 05:02 Lactic Acid 1.2 mmol/L (0.5-2.2) 08/22/21 05:02 Calcium 7.7 mg/dL (8.5-10.3) L 08/22/21 05:02 Magnesium 2.2 mg/dL (1.7-2.8) 08/20/21 07:31 Total Bilirubin 0.5 mg/dL (0.2-1.0) 08/20/21 02:55 AST 23 IU/L (10-42) 08/20/21 02:55 ALT 15 IU/L (10-60) 08/20/21 02:55 Alkaline Phosphatase 70 IU/L (42-121) 08/20/21 02:55 Troponin I High Sens 3.4 ng/L (2.3-19.7) 08/20/21 02:55 Total Protein 7.4 g/dL (6.7-8.2) 08/20/21 02:55 Albumin 4.0 g/dL (3.2-5.5) 08/20/21 02:55 Globulin 3.4 g/dL (2.1-4.2) 08/20/21 02:55 Albumin/Globulin Ratio 1.2 (1.0-2.2) 08/20/21 02:55 Triglycerides 65 mg/dL (-149) 08/20/21 07:31 Lipase 213 U/L (22-51) H 08/22/21 05:02 SARS-CoV-2 (PCR) NOT DETECTED 08/20/21 04:15 - Procedures Procedures: Procedures ENDOSC POLYPECTOMY OF LG INTEST (09/13/14) INJECT/INFUSE NEC (09/13/14) ABX Reporting Has patient been on IV antibiotics over the past 48 hours?: Yes
[2021-08-22] MEDS ORDERED: IOPAMIDOL-300 50 ML VIAL ONE (07:53)
[2021-08-22] MEDS: ONDANSETRON 4 MG/2 ML VIAL IVP PRN (09:16)
[2021-08-22] MEDS: SODIUM CHLORIDE FLUSH 0.9% 10 ML SYRINGE IVP SCH ×3 (09:16→23:45)
[2021-08-22] MEDS: SACCHAROMYCES BOULARDII 250 MG CAPSULE PO SCH ×2 (09:20→16:42)
[2021-08-22] MEDS: guaiFENesin 600 MG TABLET PO SCH ×2 (09:20→21:32)
[2021-08-22] MEDS: AZITHROMYCIN INJ 500 MG in SODIUM CHLORIDE 0.9% 250 ML IV SCH (09:20)
--- NOTE | 2021-08-22 10:10 | CT Report ---
PROCEDURE: ANGIO CHEST W/WO INDICATIONS: hypoxia, dyspnea, tachycardia, elevated DDimer CONTRAST: IV CONTRAST: Isovue 300 ml: 80 PO CONTRAST: *NO PO CONTRAST TECHNIQUE: After the administration of intravenous contrast, 2 mm axial images were acquired from the pulmonary apices to the posterior costophrenic angles during the arterial phase. In addition, 1 mm lung kernel and 5 mm soft tissue kernel reconstructions were performed. 3-dimensional coronal oblique maximum int ensity projection (MIP) reformats, 8 mm axial MIP, and 5 mm coronal and sagittal MPR reformats were t hen performed through the thorax. For radiation dose reduction, the following was used: automated exp osure control, adjustment of mA and/or kV according to patient size. COMPARISON: Chest x-ray dated 08/21/2021. CT examination dated 122. FINDINGS: Image quality: Suboptimal opacification of the pulmonary vasculature. Partially degraded by motion ar tifact. Pulmonary arteries: Pulmonary arteries are normal in size, and demonstrate no definite central intra luminal filling defects to suggest central pulmonary embolism. Lungs and pleura: No pneumothorax. New small right pleural effusion. New mild right basilar airspace opacity. Central and peripheral airways are patent. Mediastinum: Heart size is normal, without pericardial effusion. No mediastinal or hilar adenopathy . Thoracic aorta is normal in caliber and enhancement. Esophagus is normal in caliber, without hiat al hernia. Bones and chest wall: No suspicious bony lesions. Ribs and thoracic spine appear intact throughout. No axillary or supraclavicular adenopathy. The thyroid is normal in size and there are no incident al findings. Abdomen: Visualized portions of the upper abdomen demonstrate hepatic cysts, as before. IMPRESSION: 1. Limited examination for pulmonary embolus demonstrating no definite pulmonary embolus. 2. New right pleural effusion with new right basilar atelectasis versus pneumonia. Reviewed by: Petey Marinelli MD on 08/22/2021 10:08 AM PDT Approved by: Petey Marinelli MD on 08/22/2021 10:08 AM PDT Station ID: [id number]
[2021-08-22] MEDS: cefTRIAXone 1 GM in SODIUM CHLORIDE 0.9% MINIBAG 100 ML IV SCH (10:29)
[2021-08-22] MEDS ORDERED: IOPAMIDOL-300 50 ML VIAL IVP ONE (11:10)
[2021-08-22] MEDS: polyethylene glycoL 3350 17 GM PACKET PO SCH (13:03)
[2021-08-22] MEDS: TEMAZEPAM 15 MG CAPSULE PO PRN (21:33)
[2021-08-23] MEDS: ONDANSETRON 4 MG/2 ML VIAL IVP PRN ×2 (01:32→08:13)
[2021-08-23] MEDS ORDERED: diphenhydrAMINE 25 MG CAPSULE PO STA (02:19)
[2021-08-23] MEDS ORDERED: HYDROmorphone 1 MG/ML CARPUJECT IVP STA (02:19)
[2021-08-23 05:19] LABS: BASOPHILS # (AUTO) 0.1 10^3/uL (0.0-0.1); BASOPHILS % (AUTO) 0.4 %; EOSINOPHILS # (AUTO) 0.1 10^3/uL (0.0-0.7); EOSINOPHILS % (AUTO) 0.7 %; HCT - HEMATOCRIT 38.7 % (42.0-52.0); HGB - HEMOGLOBIN 11.9 g/dL (14.0-18.0); LYMPHOCYTES # (AUTO) 0.7 10^3/uL (1.5-3.5); LYMPHOCYTES % (AUTO) 4.5 %; MEAN CORPUSCULAR HEMOGLOBIN 27.4 pg (27.0-31.0); MEAN CORPUSCULAR HGB CONC 30.7 g/dL (32.0-36.0); MEAN PLATELET VOLUME 10.1 fL (7.4-11.4); MONOCYTES # (AUTO) 0.9 10^3/uL (0.0-1.0); MONOCYTES % (AUTO) 5.3 %; NEUTROPHILS # (AUTO) 14.1 10^3/uL (1.5-6.6); NEUTROPHILS % (AUTO) 88.7 %; PLT - PLATELET COUNT 210 10^3/uL (130-450); RED BLOOD COUNT 4.35 10^6/uL (4.70-6.10); RED CELL DISTRIBUTION WIDTH 15.3 % (12.0-15.0); WHITE BLOOD COUNT 15.9 x10^3/uL (4.8-10.8)
[2021-08-23 05:33] LABS: CREATININE 0.9 mg/dL (0.6-1.2); POTASSIUM 3.3 mmol/L (3.5-5.0)
--- NOTE | 2021-08-23 07:44 | PROVIDER PROGRESS NOTE ---
Assessment/Plan - Problem List (1) Community acquired pneumonia Qualifiers: Laterality: right Lung location: lower lobe of lung Qualified Code(s): J18.9 - Pneumonia, unspecified organism Assessment/Plan: Count improved from 19.7 yesterday to 15.9 today. Oxygen saturation drops into the 80s on room air. Patient completed azithromycin day #3 today. We will continue Rocephin for 2 more days. Patient had exposure to someone with COVID on 08/20/2021. Consequently he is in isolation. He would need to quarantine until 08/29/2021. His initial COVID 19 test at time of admission was negative. The COVID test will be repeated on 08/24/2021 (2) Acute pancreatitis Qualifiers: Pancreatitis type: idiopathic Acute pancreatitis complication: no infection or necrosis Qualified Code(s): K85.00 - Idiopathic acute pancreatitis without necrosis or infection Assessment/Plan: Improving/ Resolved. Patient reports only mild pain today. Lipase level improved from 213 down to 57 today. However patient vomited 5 times this morning. Currently he is n.p.o. Abdominal x-ray showed extensive and fluid loops but no obstructive pattern. Reglan IV as needed ordered. (3) Constipation Assessment/Plan: This is likely precipitated by opiate administration to control pain caused by pancreatitis. Patient vomited 5 times this morning. He is currently NPO. X-ray showed a nonobstructive bowel gas pattern. Prominent nonspecific air- filled loops of large and small bowel noted Reglan ordered as needed. Mag citrate also ordered. Will work on minimizing administration of opiates. (4) Leukocytosis Assessment/Plan: Secondary to pneumonia. Improving. We will continue to monitor. (5) Lactic acidosis Assessment/Plan: Resolved - Current Meds Current Meds: Current Medications Generic Name Dose Route Start Last Admin Trade Name Freq PRN Reason Stop Dose Admin Guaifenesin 600 mg 08/21/21 23:00 08/22/21 21:32 Guaifenesin 600 Mg Tablet PO 600 mg BID JAROD Administration Ceftriaxone Sodium 1 gm/ 100 mls @ 200 mls/hr 08/21/21 13:39 08/22/21 11:00 Sodium Chloride IV Infused DAILY JAROD Infusion Azithromycin 500 mg/ Sodium 250 mls @ 250 mls/hr 08/21/21 13:39 08/22/21 10:25 Chloride IV 08/23/21 09:59 Infused DAILY JAROD Infusion Ondansetron HCl 4 mg 08/20/21 06:02 08/23/21 01:32 Ondansetron 4 Mg/2 Ml Vial IVP 4 mg Q6HR PRN Administration Nausea / Vomiting Oxycodone HCl 5 mg 08/22/21 07:40 08/22/21 20:38 Oxycodone 5 Mg Tablet PO 5 mg Q4HR PRN Administration PAIN Polyethylene Glycol 17 gm 08/22/21 13:00 08/22/21 13:03 Polyethylene Glycol 3350 17 Gm Packet PO 17 gm DAILY JAROD Administration Prochlorperazine Edisylate 10 mg 08/20/21 06:02 08/20/21 20:09 Prochlorperazine 10 Mg/2 Ml Vial IVP 10 mg Q6HR PRN Administration Nausea / Vomiting Saccharomyces Boulardii 250 mg 08/22/21 08:00 08/22/21 16:42 Saccharomyces Boulardii 250 Mg Capsule PO 250 mg BIDWM JAROD Administration Sodium Chloride 10 ml 08/20/21 06:02 08/20/21 06:37 Sodium Chloride Flush 0.9% 10 Ml Syringe IVP 10 ml PRN PRN Administration NEEDED PER PROVIDER ORDERS Sodium Chloride 10 ml 08/20/21 09:00 08/22/21 23:45 Sodium Chloride Flush 0.9% 10 Ml Syringe IVP 10 ml 0100,0900,1700 JAROD Administration Temazepam 15 mg 08/22/21 21:03 08/22/21 21:33 Temazepam 15 Mg Capsule PO 15 mg QPM PRN Administration Insomnia - Lab Result Fish Bone Diagrams: 08/23/21 04:48 08/23/21 04:48 - Additional Planning My Orders: My Active Orders 08/22/21 07:40 oxyCODONE [Roxicodone] 5 mg PO Q4HR PRN 08/22/21 13:00 polyethylene glycoL 3350 [Miralax] 17 gm PO DAILY 08/23/21 09:00 Enoxaparin [Lovenox] 40 mg SUBQ DAILY 08/23/21 Lunch Full Liquid Diet [DIET] Subjective - Subjective Patient Reports: Other (Patient reports further improvement in abdominal pain however overall he appears uncomfortable. His breathing is more labored with a mild wheeze. O2Sat drops into the 80's on r/a. Abdomen is distended with hypoactive bowel sounds. This morning he has vomited 5 times. Diet was changed to NPO.) Objective Vital Signs: Vital Signs - 24 hr 08/22/21 08/22/21 08/22/21 08:30 09:16 12:44 Temperature 37.2 C 37.0 C Heart Rate [ 110 H 116 H Brachial] Respiratory 22 20 20 Rate Blood Pressure 121/68 136/81 H [Left Brachial artery] O2 Saturation 93 92 89 L 08/22/21 08/22/21 08/23/21 15:21 21:34 00:12 Temperature 37.0 C 37.2 C 37 C Heart Rate [ 108 H 109 H 110 H Brachial] Respiratory 24 22 22 Rate Blood Pressure 148/89 H 136/89 H 139/82 H [Left Brachial artery] O2 Saturation 91 L 91 L 92 08/23/21 04:59 Temperature 36.9 C Heart Rate [ 102 H Brachial] Respiratory 21 Rate Blood Pressure 143/82 H [Left Brachial artery] O2 Saturation 90 L Oxygen O2 Source Nasal cannula I&O (Last 24 Hrs): Intake and Output Totals x24h 08/21/21 08/22/21 08/23/21 23:59 23:59 23:59 Intake Total 3278.334 2428 100 Output Total 1100 1025 Balance 2178.334 1403 100 General: Alert, Oriented x3, Mild distress HEENT: PERRLA, EOMI Neck: Supple, No JVD Neuro: Alert, Oriented Times 3 Cardiovascular: Other (Tachycardic) Respiratory: Chest non-tender, Wheezes, Other (slightly labored breathing) Abdomen: Soft, Other (distended, nontender, hyperactive bowel sounds) Extremities: No clubbing, No cyanosis, No edema Skin: No rashes, No breakdown, No significant lesion - Results Results: Laboratory Results WBC 15.9 x10^3/uL (4.8-10.8) H 08/23/21 04:48 RBC 4.35 10^6/uL (4.70-6.10) L 08/23/21 04:48 Hgb 11.9 g/dL (14.0-18.0) L 08/23/21 04:48 Hct 38.7 % (42.0-52.0) L 08/23/21 04:48 MCV 89.0 fL (80.0-94.0) 08/23/21 04:48 MCH 27.4 pg (27.0-31.0) 08/23/21 04:48 MCHC 30.7 g/dL (32.0-36.0) L 08/23/21 04:48 RDW 15.3 % (12.0-15.0) H 08/23/21 04:48 Plt Count 210 10^3/uL (130-450) 08/23/21 04:48 MPV 10.1 fL (7.4-11.4) 08/23/21 04:48 Neut # (Auto) 14.1 10^3/uL (1.5-6.6) H 08/23/21 04:48 Lymph # (Auto) 0.7 10^3/uL (1.5-3.5) L 08/23/21 04:48 Bath # (Auto) 0.9 10^3/uL (0.0-1.0) 08/23/21 04:48 Eos # (Auto) 0.1 10^3/uL (0.0-0.7) 08/23/21 04:48 Baso # (Auto) 0.1 10^3/uL (0.0-0.1) 08/23/21 04:48 Absolute Nucleated RBC 0.00 x10^3/uL 08/23/21 04:48 Total Counted 100 08/22/21 05:02 Band Neuts % (Manual) 8 % (0-10) 08/22/21 05:02 Abnorm Lymph % (Manual) 0 % 08/22/21 05:02 Nucleated RBC % 0.0 /100WBC 08/23/21 04:48 Neutrophils # (Manual) 18.1 10^3/uL (1.5-6.6) H 08/22/21 05:02 Lymphocytes # (Manual) 0.8 10^3/uL (1.5-3.5) L 08/22/21 05:02 Monocytes # (Manual) 0.8 10^3/uL (0.0-1.0) 08/22/21 05:02 Eosinophils # (Manual) 0.0 10^3/uL (0-0.7) 08/22/21 05:02 Basophils # (Manual) 0.0 10^3/uL (0-0.1) 08/22/21 05:02 Differential Comment MANUAL DIFFERENTIAL 08/22/21 05:02 WBC Morphology NORMAL APPEARANCE (NORMAL) 08/21/21 05:40 Platelet Estimate NORMAL (130-450,000) (NORMAL) 08/22/21 05:02 Platelet Morphology NORMAL APPEARANCE (NORMAL) 08/21/21 05:40 RBC Morph Micro Appear NORMAL APPEARANCE (NORMAL) 08/22/21 05:02 D-Dimer > 1050.0 ng/mL (200.0-255.0) H 08/21/21 22:44 Sodium 143 mmol/L (135-145) 08/23/21 04:48 Potassium 3.3 mmol/L (3.5-5.0) L 08/23/21 04:48 Chloride 105 mmol/L (101-111) 08/23/21 04:48 Carbon Dioxide 28 mmol/L (21-32) 08/23/21 04:48 Anion Gap 10.0 (6-13) 08/23/21 04:48 BUN 15 mg/dL (6-20) 08/23/21 04:48 Creatinine 0.9 mg/dL (0.6-1.2) 08/23/21 04:48 Estimated GFR (MDRD) 84 (>89) L 08/23/21 04:48 Glucose 111 mg/dL (70-100) H 08/23/21 04:48 Lactic Acid 1.2 mmol/L (0.5-2.2) 08/22/21 05:02 Calcium 8.0 mg/dL (8.5-10.3) L 08/23/21 04:48 Magnesium 2.2 mg/dL (1.7-2.8) 08/20/21 07:31 Total Bilirubin 0.5 mg/dL (0.2-1.0) 08/20/21 02:55 AST 23 IU/L (10-42) 08/20/21 02:55 ALT 15 IU/L (10-60) 08/20/21 02:55 Alkaline Phosphatase 70 IU/L (42-121) 08/20/21 02:55 Troponin I High Sens 3.4 ng/L (2.3-19.7) 08/20/21 02:55 Total Protein 7.4 g/dL (6.7-8.2) 08/20/21 02:55 Albumin 4.0 g/dL (3.2-5.5) 08/20/21 02:55 Globulin 3.4 g/dL (2.1-4.2) 08/20/21 02:55 Albumin/Globulin Ratio 1.2 (1.0-2.2) 08/20/21 02:55 Triglycerides 65 mg/dL (-149) 08/20/21 07:31 Lipase 57 U/L (22-51) H 08/23/21 04:48 SARS-CoV-2 (PCR) NOT DETECTED 08/20/21 04:15 - Procedures Procedures: Procedures ENDOSC POLYPECTOMY OF LG INTEST (09/13/14) INJECT/INFUSE NEC (09/13/14) ABX Reporting Has patient been on IV antibiotics over the past 48 hours?: Yes
[2021-08-23] MEDS ORDERED: POTASSIUM CHLORIDE 20 MEQ TABLET PO ONE (08:00)
[2021-08-23] MEDS ORDERED: FUROSEMIDE 20 MG/2 ML VIAL IVP STA (08:02)
[2021-08-23] MEDS ORDERED: ALBUTEROL NEB 2.5 MG/3 ML INH PRN (08:02)
[2021-08-23] MEDS: SODIUM CHLORIDE FLUSH 0.9% 10 ML SYRINGE IVP SCH ×2 (08:13→15:57)
[2021-08-23] MEDS: AZITHROMYCIN INJ 500 MG in SODIUM CHLORIDE 0.9% 250 ML IV SCH (08:14)
[2021-08-23] MEDS: polyethylene glycoL 3350 17 GM PACKET PO SCH (08:40)
[2021-08-23] MEDS: guaiFENesin 600 MG TABLET PO SCH ×2 (08:40→20:05)
[2021-08-23] MEDS: SACCHAROMYCES BOULARDII 250 MG CAPSULE PO SCH ×2 (08:40→15:57)
[2021-08-23] MEDS: PROCHLORPERAZINE 10 MG/2 ML VIAL IVP PRN (08:41)
[2021-08-23] MEDS ORDERED: FUROSEMIDE 40 MG/4 ML VIAL IVP STA ×2 (08:46→15:00)
[2021-08-23] MEDS: SODIUM CHLORIDE FLUSH 0.9% 10 ML SYRINGE IVP PRN ×2 (09:23→11:09)
[2021-08-23] MEDS: ENOXAPARIN 40 MG/0.4 ML SYRINGE SUBQ SCH (09:27)
[2021-08-23] MEDS: cefTRIAXone 1 GM in SODIUM CHLORIDE 0.9% MINIBAG 100 ML IV SCH (09:27)
--- NOTE | 2021-08-23 09:57 | XRAY Report ---
PROCEDURE: Abdomen 1 View X-Ray INDICATIONS: abdominal distension, nausea and vomiting TECHNIQUE: 3 images of the abdomen were submitted for review. COMPARISON: CT anterior chest and CT abdomen and pelvis dated 08/20/2021 FINDINGS: Surgical changes and devices: None. Overlying EKG wires. 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 T here are a prominent air-filled loops of small bowel. Air is noted throughout the colon extending int o the rectum. Soft tissues: No suspicious abdominal calcifications. Visualized solid organ contours appear normal in size. Bones: No suspicious bony lesions. Degenerative changes of the hips and spine. IMPRESSION: Nonobstructive bowel gas pattern. 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 Reviewed by: Artur Mayo DO on 08/23/2021 8:56 AM TAMMI Approved by: Artur Mayo DO on 08/23/2021 8:56 AM TAMMI Station ID: [id number]
[2021-08-23] MEDS ORDERED: METOCLOPRAMIDE 10 MG/2 ML VIAL IVP PRN (10:44)
[2021-08-23] MEDS ORDERED: MAGNESIUM CITRATE 296 ML BOTTLE PO PRN (11:04)
[2021-08-23] MEDS: ACETAMINOPHEN 325 MG TABLET PO PRN (11:18)
[2021-08-23] MEDS ORDERED: LACTULOSE 10 GM /15 ML UDC PO STA (17:39)
[2021-08-23] MEDS: TEMAZEPAM 15 MG CAPSULE PO PRN (22:38)
[2021-08-24] MEDS: SODIUM CHLORIDE FLUSH 0.9% 10 ML SYRINGE IVP SCH ×3 (00:08→17:12)
[2021-08-24 05:23] LABS: BASOPHILS # (AUTO) 0.1 10^3/uL (0.0-0.1); BASOPHILS % (AUTO) 0.3 %; EOSINOPHILS % (AUTO) 0.1 %; HCT - HEMATOCRIT 38.5 % (42.0-52.0); LYMPHOCYTES # (AUTO) 0.6 10^3/uL (1.5-3.5); LYMPHOCYTES % (AUTO) 3.8 %; MEAN CORPUSCULAR HEMOGLOBIN 27.6 pg (27.0-31.0); MEAN CORPUSCULAR HGB CONC 31.2 g/dL (32.0-36.0); MEAN CORPUSCULAR VOLUME 88.5 fL (80.0-94.0); MONOCYTES # (AUTO) 0.9 10^3/uL (0.0-1.0); MONOCYTES % (AUTO) 5.4 %; NEUTROPHILS % (AUTO) 89.6 %; NRBC ABSOLUTE COUNT (AUTO) 0.02 x10^3/uL; NUCLEATED RED BLOOD CELLS AUTO 0.1 /100WBC; PLT - PLATELET COUNT 249 10^3/uL (130-450); RED BLOOD COUNT 4.35 10^6/uL (4.70-6.10); RED CELL DISTRIBUTION WIDTH 15.3 % (12.0-15.0); WHITE BLOOD COUNT 15.7 x10^3/uL (4.8-10.8)
[2021-08-24 05:36] LABS: CALCIUM 7.9 mg/dL (8.5-10.3)
[2021-08-24] MEDS ORDERED: POTASSIUM CHLORIDE 20 MEQ TABLET PO ONE ×2 (07:36→17:00)
--- NOTE | 2021-08-24 07:36 | PROVIDER PROGRESS NOTE ---
Assessment/Plan - Problem List (1) Community acquired pneumonia Qualifiers: Laterality: right Lung location: lower lobe of lung Qualified Code(s): J18.9 - Pneumonia, unspecified organism Assessment/Plan: No significant change in WBC. 15.9 yesterday to 15.7 today. Patient was on 1 L of oxygen with oxygen saturation at 92% in the morning. By afternoon he was breathing comfortably on room air with oxygen saturation of 94%. Patient completed azithromycin day #3 on 08/23/21. Rocephin discontinued on 08/24/21. Patient had exposure to someone with COVID on 08/20/2021. Consequently he is in isolation. He would need to quarantine until 08/29/2021. His initial COVID 19 test at time of admission was negative. Repeat COVID19 t est was negative on 08/24/2021 Anticipate discharge on 08/25/2021 (2) Acute pancreatitis Qualifiers: Pancreatitis type: idiopathic Acute pancreatitis complication: no infection or necrosis Qualified Code(s): K85.00 - Idiopathic acute pancreatitis without necrosis or infection Assessment/Plan: Resolved. Lipase level was 40 today. On full liquid diet. Advance as tolerated. (3) Constipation Assessment/Plan: Patient was given magnesium citrate, lactulose and Reglan yesterday. He successfully has had multiple bowel movements between last night and today. (4) Leukocytosis Assessment/Plan: WBC today was 15.7. No significant change from yesterday. Rocephin was discontinued. Patient was started on Cipro and Flagyl. Will reevaluate in the morning. (5) Lactic acidosis Assessment/Plan: Resolved - Current Meds Current Meds: Current Medications Generic Name Dose Route Start Last Admin Trade Name Freq PRN Reason Stop Dose Admin Acetaminophen 650 mg 08/23/21 07:06 08/23/21 11:18 Acetaminophen 325 Mg Tablet PO 650 mg Q4HR PRN Administration Pain or Fever > 38C (100.4F) Albuterol 2.5 mg 08/23/21 08:02 08/23/21 08:56 Albuterol Neb 2.5 Mg/3 Ml INH 2.5 mg RTQ4H PRN Administration Wheezing Enoxaparin Sodium 40 mg 08/23/21 09:00 08/23/21 09:27 Enoxaparin 40 Mg/0.4 Ml Syringe SUBQ 40 mg DAILY JAROD Administration Guaifenesin 600 mg 08/21/21 23:00 08/23/21 20:05 Guaifenesin 600 Mg Tablet PO 600 mg BID JAROD Administration Metoclopramide HCl 5 mg 08/23/21 10:44 08/23/21 11:09 Metoclopramide 10 Mg/2 Ml Vial IVP 5 mg Q6HR PRN Administration Nausea / Vomiting Ondansetron HCl 4 mg 08/20/21 06:02 08/23/21 08:13 Ondansetron 4 Mg/2 Ml Vial IVP 4 mg Q6HR PRN Administration Nausea / Vomiting Oxycodone HCl 5 mg 08/22/21 07:40 08/22/21 20:38 Oxycodone 5 Mg Tablet PO 5 mg Q4HR PRN Administration PAIN Polyethylene Glycol 17 gm 08/22/21 13:00 08/23/21 08:40 Polyethylene Glycol 3350 17 Gm Packet PO Not Given DAILY JAROD Prochlorperazine Edisylate 10 mg 08/20/21 06:02 08/23/21 08:41 Prochlorperazine 10 Mg/2 Ml Vial IVP 10 mg Q6HR PRN Administration Nausea / Vomiting Saccharomyces Boulardii 250 mg 08/22/21 08:00 08/23/21 15:57 Saccharomyces Boulardii 250 Mg Capsule PO 250 mg BIDWM JAROD Administration Sodium Chloride 10 ml 08/20/21 06:02 08/23/21 11:09 Sodium Chloride Flush 0.9% 10 Ml Syringe IVP 10 ml PRN PRN Administration NEEDED PER PROVIDER ORDERS Sodium Chloride 10 ml 08/20/21 09:00 08/24/21 00:08 Sodium Chloride Flush 0.9% 10 Ml Syringe IVP 10 ml 0100,0900,1700 JAROD Administration Temazepam 15 mg 08/22/21 21:03 08/23/21 22:38 Temazepam 15 Mg Capsule PO 15 mg QPM PRN Administration Insomnia - Lab Result Fish Bone Diagrams: 08/24/21 04:21 08/24/21 04:21 - Additional Planning My Orders: My Active Orders 08/23/21 08:02 Albuterol 2.5 mg INH RTQ4H PRN 08/23/21 08:03 Nebulizer/MDI Tx. [RC] .q4prn Resp Teach Nebulizer/MDI [RC] .ONCE 08/23/21 09:00 Enoxaparin [Lovenox] 40 mg SUBQ DAILY 08/23/21 10:44 Metoclopramide Inj [Reglan Inj] 5 mg IVP Q6HR PRN 08/24/21 07:34 RESPIRATORY PCR PANEL Stat 08/24/21 08:00 Ciprofloxacin/D5W 400 mg/200 ml q12h Ciprofloxacin 400 mg/200 ml [Cipro 400 mg/200 ml] 400 mg in 200 ml IV Q12H metroNIDAZOLE/NS 500 mg/100 mL Q8H metroNIDAZOLE 500 MG/100 ML [Flagyl 500 mg/100 ml] 500 mg in 100 ml IV Q8H Subjective - Subjective Patient Reports: Other (Resting comfortably in bed at time of exam. Was breathing comfortably on room air. Significant other was at bedside. Initially patient was wheezing in the morning. This resolved with Lasix. Ambulated around the [facility] floor.) Objective Vital Signs: Vital Signs - 24 hr 08/23/21 08/23/21 08/23/21 07:57 08:57 11:12 Temperature 36.3 C L 36.5 C Heart Rate 108 H Heart Rate [ 107 H 114 H Brachial] Respiratory 24 24 22 Rate Blood Pressure 146/79 H 130/86 H [Right Brachial artery] O2 Saturation 90 L 91 L 08/23/21 08/23/21 08/23/21 11:15 15:09 20:12 Temperature 36.5 C Heart Rate Heart Rate [ 109 H 103 H Brachial] Respiratory 22 22 Rate Blood Pressure 134/85 H [Right Brachial artery] O2 Saturation 92 94 95 08/23/21 08/24/21 08/24/21 21:00 00:39 05:00 Temperature 36.6 C 36.6 C 36.9 C Heart Rate Heart Rate [ 103 H 101 H 91 Brachial] Respiratory 18 20 26 H Rate Blood Pressure 131/78 H 137/79 H 146/82 H [Right Brachial artery] O2 Saturation 92 92 94 Oxygen O2 Source Nasal cannula I&O (Last 24 Hrs): Intake and Output Totals x24h 08/22/21 08/23/21 08/24/21 23:59 23:59 23:59 Intake Total 2428 450 900 Output Total 1025 1750 Balance 1403 -1300 900 General: Alert, Oriented x3, No acute distress HEENT: PERRLA, EOMI Neck: Supple, No JVD Neuro: Alert, Non Focal, Oriented Times 3 Cardiovascular: Regular rate, Normal S1, Normal S2 Respiratory: Chest non-tender, No respiratory distress, Breath sounds nml Abdomen: Normal bowel sounds, Soft, No tenderness Extremities: No clubbing, No edema, No tenderness/swelling Skin: No rashes, No breakdown, No significant lesion - Results Results: Laboratory Results WBC 15.7 x10^3/uL (4.8-10.8) H 08/24/21 04:21 RBC 4.35 10^6/uL (4.70-6.10) L 08/24/21 04:21 Hgb 12.0 g/dL (14.0-18.0) L 08/24/21 04:21 Hct 38.5 % (42.0-52.0) L 08/24/21 04:21 MCV 88.5 fL (80.0-94.0) 08/24/21 04:21 MCH 27.6 pg (27.0-31.0) 08/24/21 04:21 MCHC 31.2 g/dL (32.0-36.0) L 08/24/21 04:21 RDW 15.3 % (12.0-15.0) H 08/24/21 04:21 Plt Count 249 10^3/uL (130-450) 08/24/21 04:21 MPV 10.0 fL (7.4-11.4) 08/24/21 04:21 Neut # (Auto) 14.0 10^3/uL (1.5-6.6) H 08/24/21 04:21 Lymph # (Auto) 0.6 10^3/uL (1.5-3.5) L 08/24/21 04:21 [place] # (Auto) 0.9 10^3/uL (0.0-1.0) 08/24/21 04:21 Eos # (Auto) 0.0 10^3/uL (0.0-0.7) 08/24/21 04:21 Baso # (Auto) 0.1 10^3/uL (0.0-0.1) 08/24/21 04:21 Absolute Nucleated RBC 0.02 x10^3/uL 08/24/21 04:21 Total Counted 100 08/22/21 05:02 Band Neuts % (Manual) 8 % (0-10) 08/22/21 05:02 Abnorm Lymph % (Manual) 0 % 08/22/21 05:02 Nucleated RBC % 0.1 /100WBC 08/24/21 04:21 Neutrophils # (Manual) 18.1 10^3/uL (1.5-6.6) H 08/22/21 05:02 Lymphocytes # (Manual) 0.8 10^3/uL (1.5-3.5) L 08/22/21 05:02 Monocytes # (Manual) 0.8 10^3/uL (0.0-1.0) 08/22/21 05:02 Eosinophils # (Manual) 0.0 10^3/uL (0-0.7) 08/22/21 05:02 Basophils # (Manual) 0.0 10^3/uL (0-0.1) 08/22/21 05:02 Differential Comment MANUAL DIFFERENTIAL 08/22/21 05:02 WBC Morphology NORMAL APPEARANCE (NORMAL) 08/21/21 05:40 Platelet Estimate NORMAL (130-450,000) (NORMAL) 08/22/21 05:02 Platelet Morphology NORMAL APPEARANCE (NORMAL) 08/21/21 05:40 RBC Morph Micro Appear NORMAL APPEARANCE (NORMAL) 08/22/21 05:02 D-Dimer > 1050.0 ng/mL (200.0-255.0) H 08/21/21 22:44 Sodium 144 mmol/L (135-145) 08/24/21 04:21 Potassium 3.0 mmol/L (3.5-5.0) L 08/24/21 04:21 Chloride 102 mmol/L (101-111) 08/24/21 04:21 Carbon Dioxide 29 mmol/L (21-32) 08/24/21 04:21 Anion Gap 13.0 (6-13) 08/24/21 04:21 BUN 19 mg/dL (6-20) 08/24/21 04:21 Creatinine 1.0 mg/dL (0.6-1.2) 08/24/21 04:21 Estimated GFR (MDRD) 75 (>89) L 08/24/21 04:21 Glucose 125 mg/dL (70-100) H 08/24/21 04:21 Lactic Acid 1.2 mmol/L (0.5-2.2) 08/22/21 05:02 Calcium 7.9 mg/dL (8.5-10.3) L 08/24/21 04:21 Magnesium 2.2 mg/dL (1.7-2.8) 08/20/21 07:31 Total Bilirubin 0.5 mg/dL (0.2-1.0) 08/20/21 02:55 AST 23 IU/L (10-42) 08/20/21 02:55 ALT 15 IU/L (10-60) 08/20/21 02:55 Alkaline Phosphatase 70 IU/L (42-121) 08/20/21 02:55 Troponin I High Sens 3.4 ng/L (2.3-19.7) 08/20/21 02:55 Total Protein 7.4 g/dL (6.7-8.2) 08/20/21 02:55 Albumin 4.0 g/dL (3.2-5.5) 08/20/21 02:55 Globulin 3.4 g/dL (2.1-4.2) 08/20/21 02:55 Albumin/Globulin Ratio 1.2 (1.0-2.2) 08/20/21 02:55 Triglycerides 65 mg/dL (-149) 08/20/21 07:31 Lipase 40 U/L (22-51) 08/24/21 04:21 SARS-CoV-2 (PCR) NOT DETECTED 08/20/21 04:15 - Procedures Procedures: Procedures ENDOSC POLYPECTOMY OF LG INTEST (09/13/14) INJECT/INFUSE NEC (09/13/14) ABX Reporting Has patient been on IV antibiotics over the past 48 hours?: Yes
[2021-08-24] MEDS: guaiFENesin 600 MG TABLET PO SCH ×2 (08:45→21:42)
[2021-08-24] MEDS: SACCHAROMYCES BOULARDII 250 MG CAPSULE PO SCH ×2 (08:45→17:11)
[2021-08-24] MEDS: polyethylene glycoL 3350 17 GM PACKET PO SCH (08:46)
[2021-08-24] MEDS: CIPROFLOXACIN 400 MG/200 ML 400 MG/200 ML BAG IV SCH ×2 (08:46→20:27)
[2021-08-24] MEDS: ENOXAPARIN 40 MG/0.4 ML SYRINGE SUBQ SCH (08:46)
[2021-08-24] MEDS: metroNIDAZOLE 500 MG/100 ML 500 MG/100 ML BAG IV SCH ×2 (10:00→17:11)
[2021-08-24 10:05] LABS: B. PARAPERTUSSIS- RESP PCR PAN NOT DETECTED; B. PERTUSSIS- RESP PCR PANEL NOT DETECTED; C. PNEUMONIAE- RESP PCR PANEL NOT DETECTED; CORONAVIRUS 229E-RESP PCR NOT DETECTED; CORONAVIRUS HKU1-RESP PCR NOT DETECTED; CORONAVIRUS NL63-RESP PCR NOT DETECTED; CORONAVIRUS OC43-RESP PCR NOT DETECTED; HUMAN METAPNEUMOVIRUS NOT DETECTED; INFLUENZA A- RESP PCR PANEL NOT DETECTED; INFLUENZA B - RESP PCR PANEL NOT DETECTED; M. PNEUMONIAE- RESP PCR PANEL NOT DETECTED; PARAINFLUENZA VIRUS 1 NOT DETECTED; PARAINFLUENZA VIRUS 2 NOT DETECTED; PARAINFLUENZA VIRUS 3 NOT DETECTED; PARAINFLUENZA VIRUS 4 NOT DETECTED; RHINOVIRUS/ENTEROVIRUS NOT DETECTED; RSV- RESP PCR PANEL NOT DETECTED; SARS-CoV-2 -RESP PCR PANEL NOT DETECTED
[2021-08-24] MEDS ORDERED: FUROSEMIDE 40 MG/4 ML VIAL IVP STA (12:28)
[2021-08-24] MEDS: SODIUM CHLORIDE FLUSH 0.9% 10 ML SYRINGE IVP PRN (13:05)
[2021-08-25] MEDS: metroNIDAZOLE 500 MG/100 ML 500 MG/100 ML BAG IV SCH ×3 (00:08→15:57)
[2021-08-25] MEDS: TEMAZEPAM 15 MG CAPSULE PO PRN (00:08)
[2021-08-25] MEDS: SODIUM CHLORIDE FLUSH 0.9% 10 ML SYRINGE IVP SCH ×3 (00:14→17:07)
[2021-08-25 07:32] LABS: BASOPHILS % (AUTO) 0.3 %; EOSINOPHILS % (AUTO) 0.1 %; HCT - HEMATOCRIT 40.6 % (42.0-52.0); LYMPHOCYTES # (AUTO) 0.7 10^3/uL (1.5-3.5); LYMPHOCYTES % (AUTO) 4.6 %; MEAN CORPUSCULAR HEMOGLOBIN 27.5 pg (27.0-31.0); MEAN PLATELET VOLUME 9.6 fL (7.4-11.4); MONOCYTES # (AUTO) 0.9 10^3/uL (0.0-1.0); NEUTROPHILS # (AUTO) 12.9 10^3/uL (1.5-6.6); NEUTROPHILS % (AUTO) 85.9 %; NRBC ABSOLUTE COUNT (AUTO) 0.04 x10^3/uL; NUCLEATED RED BLOOD CELLS AUTO 0.3 /100WBC; PLT - PLATELET COUNT 253 10^3/uL (130-450); RED BLOOD COUNT 4.72 10^6/uL (4.70-6.10); RED CELL DISTRIBUTION WIDTH 15.5 % (12.0-15.0); WHITE BLOOD COUNT 14.9 x10^3/uL (4.8-10.8)
[2021-08-25 07:41] LABS: CALCIUM 7.9 mg/dL (8.5-10.3); CREATININE 0.9 mg/dL (0.6-1.2); POTASSIUM 3.1 mmol/L (3.5-5.0)
[2021-08-25] MEDS: SACCHAROMYCES BOULARDII 250 MG CAPSULE PO SCH ×2 (09:34→17:07)
[2021-08-25] MEDS: ENOXAPARIN 40 MG/0.4 ML SYRINGE SUBQ SCH (09:34)
[2021-08-25] MEDS: CIPROFLOXACIN 400 MG/200 ML 400 MG/200 ML BAG IV SCH ×2 (09:35→20:01)
[2021-08-25] MEDS: guaiFENesin 600 MG TABLET PO SCH ×2 (09:35→20:01)
[2021-08-25] MEDS: polyethylene glycoL 3350 17 GM PACKET PO SCH (10:50)
[2021-08-25] MEDS: POTASSIUM CHLOR 10 MEQ/100 ML 10 MEQ/100 ML BAG IV SCH ×4 (10:51→14:23)
[2021-08-25] MEDS: ONDANSETRON 4 MG/2 ML VIAL IVP PRN ×2 (12:47→20:07)
--- NOTE | 2021-08-25 15:35 | PROVIDER PROGRESS NOTE ---
Assessment/Plan - Problem List (1) Intractable nausea and vomiting Assessment/Plan: Patient continues to vomit multiple times a day. He cannot tolerate anything past a clear liquid diet. He is on Zofran, Reglan and Compazine as needed for nausea. We will continue to treat. (2) Community acquired pneumonia Qualifiers: Laterality: right Lung location: lower lobe of lung Qualified Code(s): J18.9 - Pneumonia, unspecified organism Assessment/Plan: Improved/ Resolved. WBC this morning was 14.9. Patient is breathing comfortably on room air with oxygen saturation at 94%. Patient completed azithromycin on 08/23/2021. Rocephin discontinued on 08/24/2021. Repeat COVID test was negative on 08/24/2021. (3) Acute pancreatitis Qualifiers: Pancreatitis type: idiopathic Acute pancreatitis complication: no infection or necrosis Qualified Code(s): K85.00 - Idiopathic acute pancreatitis without necrosis or infection Assessment/Plan: Resolved. Lipase level was 40 yesterday. On full liquid diet. Advance as tolerated. (4) Constipation Assessment/Plan: Resolved. Patient had multiple bowel movements overnight and this morning. (5) Leukocytosis Assessment/Plan: WBC today was 14.9. On. Cipro and Flagyl will continue. (6) Lactic acidosis Assessment/Plan: Resolved - Current Meds Current Meds: Current Medications Generic Name Dose Route Start Last Admin Trade Name Freq PRN Reason Stop Dose Admin Acetaminophen 650 mg 08/23/21 07:06 08/23/21 11:18 Acetaminophen 325 Mg Tablet PO 650 mg Q4HR PRN Administration Pain or Fever > 38C (100.4F) Albuterol 2.5 mg 08/23/21 08:02 08/23/21 08:56 Albuterol Neb 2.5 Mg/3 Ml INH 2.5 mg RTQ4H PRN Administration Wheezing Enoxaparin Sodium 40 mg 08/23/21 09:00 08/25/21 09:34 Enoxaparin 40 Mg/0.4 Ml Syringe SUBQ 40 mg DAILY JAROD Administration Guaifenesin 600 mg 08/21/21 23:00 08/25/21 09:35 Guaifenesin 600 Mg Tablet PO 600 mg BID JAROD Administration Ciprofloxacin 400 mg in 200 mls @ 200 mls/hr 08/24/21 08:00 08/25/21 10:40 Cipro 400 Mg/200 Ml IV Infused Q12H JAROD Infusion Metronidazole 500 mg in 100 mls @ 100 mls/hr 08/24/21 08:00 08/25/21 09:15 Flagyl 500 Mg/100 Ml IV Infused Q8H JAROD Infusion Metoclopramide HCl 5 mg 08/23/21 10:44 08/23/21 11:09 Metoclopramide 10 Mg/2 Ml Vial IVP 5 mg Q6HR PRN Administration Nausea / Vomiting Ondansetron HCl 4 mg 08/20/21 06:02 08/25/21 12:47 Ondansetron 4 Mg/2 Ml Vial IVP 4 mg Q6HR PRN Administration Nausea / Vomiting Oxycodone HCl 5 mg 08/22/21 07:40 08/22/21 20:38 Oxycodone 5 Mg Tablet PO 5 mg Q4HR PRN Administration PAIN Polyethylene Glycol 17 gm 08/22/21 13:00 08/25/21 10:50 Polyethylene Glycol 3350 17 Gm Packet PO Not Given DAILY JAROD Prochlorperazine Edisylate 10 mg 08/20/21 06:02 08/23/21 08:41 Prochlorperazine 10 Mg/2 Ml Vial IVP 10 mg Q6HR PRN Administration Nausea / Vomiting Saccharomyces Boulardii 250 mg 08/22/21 08:00 08/25/21 09:34 Saccharomyces Boulardii 250 Mg Capsule PO 250 mg BIDWM JAROD Administration Sodium Chloride 10 ml 08/20/21 06:02 08/24/21 13:05 Sodium Chloride Flush 0.9% 10 Ml Syringe IVP 10 ml PRN PRN Administration NEEDED PER PROVIDER ORDERS Sodium Chloride 10 ml 08/20/21 09:00 08/25/21 10:52 Sodium Chloride Flush 0.9% 10 Ml Syringe IVP Not Given 0100,0900,1700 JAROD Temazepam 15 mg 08/22/21 21:03 08/25/21 00:08 Temazepam 15 Mg Capsule PO 15 mg QPM PRN Administration Insomnia - Lab Result Fish Bone Diagrams: 08/25/21 07:29 08/25/21 07:29 - Additional Planning My Orders: My Active Orders 08/25/21 Dinner Clear Liquid Diet [DIET] 08/26/21 05:00 BMP - BASIC METABOLIC PANEL [CHEM] DAILYLAB CBC - COMP BLD CT W/AUTO DIFF [HEME] DAILYLAB 08/27/21 05:00 BMP - BASIC METABOLIC PANEL [CHEM] DAILYLAB CBC - COMP BLD CT W/AUTO DIFF [HEME] DAILYLAB 08/28/21 05:00 BMP - BASIC METABOLIC PANEL [CHEM] DAILYLAB CBC - COMP BLD CT W/AUTO DIFF [HEME] DAILYLAB Subjective - Subjective Patient Reports: Other (Patient was experiencing hiccups this morning. He had 3 loose stools overnight. Attempts to place him on regular diet was unsuccessful. He vomited his lunch.) Objective Vital Signs: Vital Signs - 24 hr 08/24/21 08/24/21 08/25/21 17:00 20:57 00:08 Temperature 36.5 C 36.8 C 36.2 C L Heart Rate [ 93 100 Brachial] Heart Rate [ 90 Monitoring electrodes] Respiratory 18 22 24 Rate Blood Pressure 145/80 H 135/76 H 129/82 H [Right Brachial artery] O2 Saturation 94 93 92 08/25/21 08/25/21 08/25/21 06:07 07:48 11:56 Temperature 36.6 C 36.3 C L 36.6 C Heart Rate [ 97 92 96 Brachial] Heart Rate [ Monitoring electrodes] Respiratory 24 18 17 Rate Blood Pressure 121/76 132/78 H 132/87 H [Right Brachial artery] O2 Saturation 95 93 93 Oxygen O2 Source Room air I&O (Last 24 Hrs): Intake and Output Totals x24h 08/23/21 08/24/21 08/25/21 23:59 23:59 23:59 Intake Total 450 1660 1000 Output Total 1750 600 Balance -1300 1060 1000 Comments/Notes: General: Alert, Oriented x3, No acute distress HEENT: PERRLA, EOMI Neck: Supple, No JVD Neuro: Alert, Non Focal, Oriented Times 3 Cardiovascular: Regular rate, Normal S1, Normal S2 Respiratory: Chest non-tender, No respiratory distress, Breath sounds nml Abdomen: Normal bowel sounds, Soft, No tenderness Extremities: No clubbing, No edema, No tenderness/swelling Skin: No rashes, No breakdown, No significant lesion - Results Results: Laboratory Results WBC 14.9 x10^3/uL (4.8-10.8) H 08/25/21 07:29 RBC 4.72 10^6/uL (4.70-6.10) 08/25/21 07: Hgb 13.0 g/dL (14.0-18.0) L 08/25/21 07: Hct 40.6 % (42.0-52.0) L 08/25/21 07: MCV 86.0 fL (80.0-94.0) 08/25/21 07: MCH 27.5 pg (27.0-31.0) 08/25/21 07: MCHC 32.0 g/dL (32.0-36.0) 08/25/21 07: RDW 15.5 % (12.0-15.0) H 08/25/21 07: Plt Count 253 10^3/uL (130-450) 08/25/21 07: MPV 9.6 fL (7.4-11.4) 08/25/21 07: Neut # (Auto) 12.9 10^3/uL (1.5-6.6) H 08/25/21 07: Lymph # (Auto) 0.7 10^3/uL (1.5-3.5) L 08/25/21 07:29 [place] # (Auto) 0.9 10^3/uL (0.0-1.0) 08/25/21 07: Eos # (Auto) 0.0 10^3/uL (0.0-0.7) 08/25/21 07: Baso # (Auto) 0.0 10^3/uL (0.0-0.1) 08/25/21 07: Absolute Nucleated RBC 0.04 x10^3/uL 08/25/21 07:29 Total Counted 100 08/22/21 05:02 Band Neuts % (Manual) 8 % (0-10) 08/22/21 05:02 Abnorm Lymph % (Manual) 0 % 08/22/21 05:02 Nucleated RBC % 0.3 /100WBC 08/25/21 07:29 Neutrophils # (Manual) 18.1 10^3/uL (1.5-6.6) H 08/22/21 05:02 Lymphocytes # (Manual) 0.8 10^3/uL (1.5-3.5) L 08/22/21 05:02 Monocytes # (Manual) 0.8 10^3/uL (0.0-1.0) 08/22/21 05:02 Eosinophils # (Manual) 0.0 10^3/uL (0-0.7) 08/22/21 05:02 Basophils # (Manual) 0.0 10^3/uL (0-0.1) 08/22/21 05:02 Differential Comment MANUAL DIFFERENTIAL 08/22/21 05:02 WBC Morphology NORMAL APPEARANCE (NORMAL) 08/21/21 05:40 Platelet Estimate NORMAL (130-450,000) (NORMAL) 08/22/21 05:02 Platelet Morphology NORMAL APPEARANCE (NORMAL) 08/21/21 05:40 RBC Morph Micro Appear NORMAL APPEARANCE (NORMAL) 08/22/21 05:02 D-Dimer > 1050.0 ng/mL (200.0-255.0) H 08/21/21 22:44 Sodium 142 mmol/L (135-145) 08/25/21 07:29 Potassium 3.1 mmol/L (3.5-5.0) L 08/25/21 07:29 Chloride 101 mmol/L (101-111) 08/25/21 07:29 Carbon Dioxide 28 mmol/L (21-32) 08/25/21 07:29 Anion Gap 13.0 (6-13) 08/25/21 07:29 BUN 19 mg/dL (6-20) 08/25/21 07:29 Creatinine 0.9 mg/dL (0.6-1.2) 08/25/21 07:29 Estimated GFR (MDRD) 84 (>89) L 08/25/21 07:29 Glucose 120 mg/dL (70-100) H 08/25/21 07:29 Lactic Acid 1.2 mmol/L (0.5-2.2) 08/22/21 05:02 Calcium 7.9 mg/dL (8.5-10.3) L 08/25/21 07:29 Magnesium 2.7 mg/dL (1.7-2.8) 08/25/21 07:29 Total Bilirubin 0.5 mg/dL (0.2-1.0) 08/20/21 02:55 AST 23 IU/L (10-42) 08/20/21 02:55 ALT 15 IU/L (10-60) 08/20/21 02:55 Alkaline Phosphatase 70 IU/L (42-121) 08/20/21 02:55 Troponin I High Sens 3.4 ng/L (2.3-19.7) 08/20/21 02:55 Total Protein 7.4 g/dL (6.7-8.2) 08/20/21 02:55 Albumin 4.0 g/dL (3.2-5.5) 08/20/21 02:55 Globulin 3.4 g/dL (2.1-4.2) 08/20/21 02:55 Albumin/Globulin Ratio 1.2 (1.0-2.2) 08/20/21 02:55 Triglycerides 65 mg/dL (-149) 08/20/21 07:31 Lipase 40 U/L (22-51) 08/24/21 04:21 Nasal Adenovirus (PCR) NOT DETECTED 08/24/21 08:50 Nasal B. parapertussis DNA (PCR) NOT DETECTED 08/24/21 08:50 Nasal Coronavir 229E PCR NOT DETECTED 08/24/21 08:50 Nasal Coronavir HKU1 PCR NOT DETECTED 08/24/21 08:50 Nasal Coronavir NL63 PCR NOT DETECTED 08/24/21 08:50 Nasal Coronavir OC43 PCR NOT DETECTED 08/24/21 08:50 Nasal Enterovir/Rhinovir PCR NOT DETECTED 08/24/21 08:50 Nasal Influenza B PCR NOT DETECTED 08/24/21 08:50 Nasal Influenza A PCR NOT DETECTED 08/24/21 08:50 Nasal Parainfluen 1 PCR NOT DETECTED 08/24/21 08:50 Nasal Parainfluen 2 PCR NOT DETECTED 08/24/21 08:50 Nasal Parainfluen 3 PCR NOT DETECTED 08/24/21 08:50 Nasal Parainfluen 4 PCR NOT DETECTED 08/24/21 08:50 Nasal RSV (PCR) NOT DETECTED 08/24/21 08:50 Nasal B.pertussis DNA PCR NOT DETECTED 08/24/21 08:50 Nasal C.pneumoniae (PCR) NOT DETECTED 08/24/21 08:50 Elan Human Metapneumo PCR NOT DETECTED 08/24/21 08:50 Nasal M.pneumoniae (PCR) NOT DETECTED 08/24/21 08:50 Nasal SARS-CoV-2 (PCR) NOT DETECTED 08/24/21 08:50 SARS-CoV-2 (PCR) NOT DETECTED 08/20/21 04:15 - Procedures Procedures: Procedures ENDOSC POLYPECTOMY OF LG INTEST (09/13/14) INJECT/INFUSE NEC (09/13/14) ABX Reporting Has patient been on IV antibiotics over the past 48 hours?: Yes
[2021-08-25] MEDS ORDERED: NS W/20 MEQ KCL 1,000 ML IV SCH (16:00)
[2021-08-25] MEDS: ACETAMINOPHEN 325 MG TABLET PO PRN ×2 (18:23→22:35)
[2021-08-26] MEDS: metroNIDAZOLE 500 MG/100 ML 500 MG/100 ML BAG IV SCH ×2 (00:24→08:01)
[2021-08-26] MEDS: TEMAZEPAM 15 MG CAPSULE PO PRN (00:26)
[2021-08-26] MEDS: ONDANSETRON 4 MG/2 ML VIAL IVP PRN (02:33)
[2021-08-26] MEDS: SODIUM CHLORIDE FLUSH 0.9% 10 ML SYRINGE IVP SCH ×2 (02:33→10:06)
[2021-08-26] MEDS: ACETAMINOPHEN 325 MG TABLET PO PRN ×2 (03:05→07:00)
[2021-08-26 05:22] LABS: BASOPHILS % (AUTO) 0.5 %; EOSINOPHILS % (AUTO) 0.2 %; HCT - HEMATOCRIT 39.3 % (42.0-52.0); HGB - HEMOGLOBIN 12.4 g/dL (14.0-18.0); LYMPHOCYTES % (AUTO) 6.3 %; MEAN CORPUSCULAR HEMOGLOBIN 27.4 pg (27.0-31.0); MEAN CORPUSCULAR HGB CONC 31.6 g/dL (32.0-36.0); MEAN CORPUSCULAR VOLUME 86.9 fL (80.0-94.0); MEAN PLATELET VOLUME 9.6 fL (7.4-11.4); MONOCYTES % (AUTO) 5.9 %; PLT - PLATELET COUNT 275 10^3/uL (130-450); RED BLOOD COUNT 4.52 10^6/uL (4.70-6.10); RED CELL DISTRIBUTION WIDTH 15.9 % (12.0-15.0); WHITE BLOOD COUNT 13.2 x10^3/uL (4.8-10.8)
[2021-08-26 05:28] LABS: ABNORMAL LYMPHS % (MANUAL) 0 %
[2021-08-26 05:33] LABS: CALCIUM 7.8 mg/dL (8.5-10.3); CREATININE 0.9 mg/dL (0.6-1.2); POTASSIUM 3.1 mmol/L (3.5-5.0)
[2021-08-26 05:50] LABS: BAND NEUTROPHILS % (MANUAL) 3 %; DIFFERENTIAL COMMENT MANUAL DIFFERENTIAL; LYMPHOCYTES # (MANUAL) 0.5 10^3/uL (1.5-3.5); LYMPHOCYTES % (MANUAL) 4 %; MONOCYTES # (MANUAL) 0.5 10^3/uL (0.0-1.0); MYELOCYTES % (MANUAL) 1 %; PLATELET ESTIMATE, MANUAL NORMAL (130-450,000) (NORMAL); PLATELET MORPHOLOGY NORMAL APPEARANCE (NORMAL); RBC MORPHOLOGY (MULTIPLE) NORMAL APPEARANCE (NORMAL); WBC MORPHOLOGY (MULTIPLE) NORMAL APPEARANCE (NORMAL)
[2021-08-26] MEDS: CIPROFLOXACIN 400 MG/200 ML 400 MG/200 ML BAG IV SCH (09:10)
[2021-08-26] MEDS: POTASSIUM CHLORIDE 20 MEQ TABLET PO ONE ×2 (10:05→10:40)
[2021-08-26] MEDS: SACCHAROMYCES BOULARDII 250 MG CAPSULE PO SCH ×2 (10:05→10:40)
[2021-08-26] MEDS: guaiFENesin 600 MG TABLET PO SCH ×2 (10:05→10:39)
[2021-08-26] MEDS: polyethylene glycoL 3350 17 GM PACKET PO SCH (10:06)
[2021-08-26] MEDS: ENOXAPARIN 40 MG/0.4 ML SYRINGE SUBQ SCH (10:06)
--- NOTE | 2021-08-26 10:17 | PROVIDER PROGRESS NOTE ---
Subjective - Prog Note Date Prog Note Date: 08/26/21 - Subjective Subjective: He has no abdominal pain but still has nausea and emesis with pretty much any p.o. intake. He feels that this is a little improved each day but still present. He does not always feel nauseous when he vomits but oftentimes he does. Zofran has had minimal relief. His diarrhea is pretty much resolved but he still is having daily bowel movements. Current Medications - Current Medications Current Medications: Active Medications Acetaminophen (Acetaminophen 325 Mg Tablet) 650 mg PO Q4HR PRN PRN Reason: Pain or Fever > 38C (100.4F) Last Admin: 08/26/21 07:00 Dose: 650 mg Albuterol (Albuterol Neb 2.5 Mg/3 Ml) 2.5 mg INH RTQ4H PRN PRN Reason: Wheezing Last Admin: 08/23/21 08:56 Dose: 2.5 mg Enoxaparin Sodium (Enoxaparin 40 Mg/0.4 Ml Syringe) 40 mg SUBQ DAILY [facility] Last Admin: 08/26/21 10:06 Dose: 40 mg Guaifenesin (Guaifenesin 600 Mg Tablet) 600 mg PO BID [facility] Last Admin: 08/26/21 10:39 Dose: Not Given Metoclopramide HCl (Metoclopramide 10 Mg/2 Ml Vial) 5 mg IVP Q6HR JAROD Last Admin: 08/26/21 13:15 Dose: 5 mg Ondansetron HCl (Ondansetron 4 Mg/2 Ml Vial) 4 mg IVP Q6HR PRN PRN Reason: Nausea / Vomiting Last Admin: 08/26/21 02:33 Dose: 4 mg Oxycodone HCl (Oxycodone 5 Mg Tablet) 5 mg PO Q4HR PRN PRN Reason: PAIN Last Admin: 08/22/21 20:38 Dose: 5 mg Prochlorperazine Edisylate (Prochlorperazine 10 Mg/2 Ml Vial) 10 mg IVP Q6HR PRN PRN Reason: Nausea / Vomiting Last Admin: 08/26/21 14:26 Dose: 10 mg Saccharomyces Boulardii (Saccharomyces Boulardii 250 Mg Capsule) 250 mg PO BIDWM [facility] Last Admin: 08/26/21 10:40 Dose: Not Given Sodium Chloride (Sodium Chloride Flush 0.9% 10 Ml Syringe) 10 ml IVP PRN PRN PRN Reason: NEEDED PER PROVIDER ORDERS Last Admin: 08/24/21 13:05 Dose: 10 ml Sodium Chloride (Sodium Chloride Flush 0.9% 10 Ml Syringe) 10 ml IVP 0100,0900,1700 JAROD Last Admin: 08/26/21 10:06 Dose: 10 ml Temazepam (Temazepam 15 Mg Capsule) 15 mg PO QPM PRN PRN Reason: Insomnia Last Admin: 08/26/21 00:26 Dose: 15 mg No Known Home Medications 08/20/21 Objective - Vital Signs/Intake & Output Reviewed Vital Signs: Yes Vital Signs: Vital Signs x48h Temp Pulse Pulse Resp BP Pulse Ox 08/26/21 08:17 36.1 C L 96 18 96/60 92 08/26/21 06:07 36.4 C L 87 16 116/77 92 Intake & Output: Intake & Output 08/23/21 08/24/21 08/25/21 08/26/21 23:59 23:59 23:59 23:59 Intake Total 450 1660 1650 200 Output Total 1750 600 100 Balance -1300 1060 1650 100 - Objective General Appearance: positive: Alert, Mild distress Eyes Bilateral: positive: Normal inspection, Conjunctivae nml ENT: positive: ENT inspection nml Neck: positive: Nml inspection Respiratory: positive: No respiratory distress. negative: Wheezes, Rales Cardiovascular: positive: Regular rate & rhythm, No murmur Abdomen: positive: Non-tender, Nml bowel sounds, No distention. negative: Tenderness Skin: positive: Warm, Dry Extremities: positive: No pedal edema Neurologic/Psychiatric: positive: Motor nml. negative: Disoriented to person, D isoriented to place - Lab Results Fish Bones: 08/26/21 04:59 08/26/21 04:59 Other Labs: Lab Results x24hrs 08/26/21 08/26/21 Range/Units 04:59 04:59 WBC 13.2 H (4.8-10.8) x10^3/uL RBC 4.52 L (4.70-6.10) 10^6/uL Hgb 12.4 L (14.0-18.0) g/dL Hct 39.3 L (42.0-52.0) % MCV 86.9 (80.0-94.0) fL MCH 27.4 (27.0-31.0) pg MCHC 31.6 L (32.0-36.0) g/dL RDW 15.9 H (12.0-15.0) % Plt Count 275 (130-450) 10^3/uL MPV 9.6 (7.4-11.4) fL Neut # (Auto) Not Reportable Lymph # (Auto) Not Reportable [place] # (Auto) Not Reportable Eos # (Auto) Not Reportable Baso # (Auto) Not Reportable Absolute Nucleated RBC Not Reportable Total Counted 100 Band Neuts % (Manual) 3 (0 - 10) % Abnorm Lymph % (Manual) 0 % Myelocytes % 1 H ( - 0) % Nucleated RBC % Not Reportable Neutrophils # (Manual) 12.0 H (1.5-6.6) 10^3/uL Lymphocytes # (Manual) 0.5 L (1.5-3.5) 10^3/uL Monocytes # (Manual) 0.5 (0.0-1.0) 10^3/uL Eosinophils # (Manual) 0.0 (0-0.7) 10^3/uL Basophils # (Manual) 0.0 (0-0.1) 10^3/uL Differential Comment MANUAL DIFFERENTIAL WBC Morphology NORMAL APPEARANCE (NORMAL) Platelet Estimate NORMAL (130-450,000) (NORMAL) Platelet Morphology NORMAL APPEARANCE (NORMAL) RBC Morph Micro Appear NORMAL APPEARANCE (NORMAL) Sodium 142 (135-145) mmol/L Potassium 3.1 L (3.5-5.0) mmol/L Chloride 103 (101-111) mmol/L Carbon Dioxide 28 (21-32) mmol/L Anion Gap 11.0 (6-13) BUN 17 (6-20) mg/dL Creatinine 0.9 (0.6-1.2) mg/dL Estimated GFR (MDRD) 84 L (>89) Glucose 118 H (70-100) mg/dL Calcium 7.8 L (8.5-10.3) mg/dL Assessment/Plan - Problem List (1) Intractable nausea and vomiting Impression: The etiology of this is not clear. May be related to his pancreatitis although he has no abdominal pain. He has been having a little diarrhea but this appears to have resolved. I discussed this briefly with general surgery and they recommended trialing scheduled Reglan and to obtain a gastric emptying study. We will start him on Reglan 5 mg every 6 hours and use Compazine as needed. We will look to obtain a gastric emptying study in the morning. We do not feel there is a role for EGD or repeat CT at this time but will reconsider if symptoms persist. (2) Acute pancreatitis Impression: This appears to have resolved. He has no abdominal pain and lipase is within normal limits. We are now managing his nausea and vomiting as mentioned above. Qualifiers: Pancreatitis type: idiopathic Acute pancreatitis complication: no infection or necrosis Qualified Code(s): K85.00 - Idiopathic acute pancreatitis without necrosis or infection (3) Community acquired pneumonia Impression: There was concern for right lower lobe infiltrate on imaging although suspect this may have actually been atelectasis given lack of dyspnea, fever, cough. He has completed Rocephin and azithromycin and antibiotics have been discontinued. Qualifiers: Laterality: right Lung location: lower lobe of lung Qualified Code(s): J18.9 - Pneumonia, unspecified organism (4) Leukocytosis Impression: His white count remains elevated but improving on a daily basis and today it is 13,000. His suspect is likely reactive due to the pancreatitis and his ongoing nausea/vomiting. We will discontinue ciprofloxacin and Flagyl given lack of evidence of infection. Continue with daily CBC.
[2021-08-26] MEDS: POTASSIUM CHLOR 10 MEQ/100 ML 10 MEQ/100 ML BAG IV SCH ×4 (10:32→15:26)
[2021-08-26] MEDS: METOCLOPRAMIDE 10 MG/2 ML VIAL IVP SCH (13:15)
[2021-08-26] MEDS: PROCHLORPERAZINE 10 MG/2 ML VIAL IVP PRN (14:26)
[2021-08-26] MEDS ORDERED: SACCHAROMYCES BOULARDII 250 MG CAPSULE ONE (17:21)
[2021-08-26] MEDS ORDERED: METOCLOPRAMIDE 10 MG/2 ML VIAL ONE ×2 (17:21→23:57)
[2021-08-26] MEDS ORDERED: ACETAMINOPHEN 325 MG TABLET PO ONE ×2 (17:30→22:13)
[2021-08-26] MEDS ORDERED: guaiFENesin 600 MG TABLET PO ONE (20:56)
[2021-08-27] MEDS ORDERED: ACETAMINOPHEN 325 MG TABLET PO ONE ×4 (02:16→23:51)
[2021-08-27] MEDS ORDERED: METOCLOPRAMIDE 10 MG/2 ML VIAL ONE ×4 (05:21→23:51)
[2021-08-27] MEDS ORDERED: guaiFENesin 600 MG TABLET PO ONE (09:11)
[2021-08-27] MEDS ORDERED: SACCHAROMYCES BOULARDII 250 MG CAPSULE ONE (09:11)
[2021-08-27] MEDS ORDERED: ENOXAPARIN 40 MG/0.4 ML SYRINGE SUBQ ONE (09:11)
[2021-08-27] MEDS ORDERED: POTASSIUM CHLOR 10 MEQ/100 ML 40 MEQ/400 ML BAG IV ONE (13:36)
[2021-08-27] MEDS ORDERED: ONDANSETRON 4 MG/2 ML VIAL ONE (16:45)
[2021-08-27] MEDS: SACCHAROMYCES BOULARDII 250 MG CAPSULE PO SCH ×3 (18:23→18:52)
[2021-08-27] MEDS: METOCLOPRAMIDE 10 MG/2 ML VIAL IVP SCH ×5 (18:23→23:46)
[2021-08-27] MEDS: guaiFENesin 600 MG TABLET PO SCH ×3 (18:23→21:49)
[2021-08-27] MEDS: SODIUM CHLORIDE FLUSH 0.9% 10 ML SYRINGE IVP SCH ×5 (18:23→23:47)
[2021-08-27] MEDS: ENOXAPARIN 40 MG/0.4 ML SYRINGE SUBQ SCH (18:51)
[2021-08-27] MEDS: POTASSIUM CHLOR 10 MEQ/100 ML 10 MEQ/100 ML BAG IV SCH ×3 (18:51→18:53)
[2021-08-27] MEDS: TEMAZEPAM 15 MG CAPSULE PO PRN (21:51)
[2021-08-27 21:54] LABS: BASOPHILS # (AUTO) 0.1 10^3/uL (0.0-0.1); BASOPHILS % (AUTO) 0.3 %; CALCIUM 7.7 mg/dL (8.5-10.3); CREATININE 0.9 mg/dL (0.6-1.2); EOSINOPHILS % (AUTO) 0.3 %; HCT - HEMATOCRIT 38.1 % (42.0-52.0); HGB - HEMOGLOBIN 11.8 g/dL (14.0-18.0); LYMPHOCYTES % (AUTO) 6.9 %; MAGNESIUM 2.4 mg/dL (1.7-2.8); MEAN CORPUSCULAR HEMOGLOBIN 26.8 pg (27.0-31.0); MEAN CORPUSCULAR VOLUME 86.4 fL (80.0-94.0); MEAN PLATELET VOLUME 9.7 fL (7.4-11.4); MONOCYTES # (AUTO) 0.7 10^3/uL (0.0-1.0); MONOCYTES % (AUTO) 4.7 %; NEUTROPHILS # (AUTO) 12.2 10^3/uL (1.5-6.6); NEUTROPHILS % (AUTO) 84.8 %; NRBC ABSOLUTE COUNT (AUTO) 0.04 x10^3/uL; NUCLEATED RED BLOOD CELLS AUTO 0.3 /100WBC; PLT - PLATELET COUNT 334 10^3/uL (130-450); POTASSIUM 3.1 mmol/L (3.5-5.0); RED BLOOD COUNT 4.41 10^6/uL (4.70-6.10); RED CELL DISTRIBUTION WIDTH 16.2 % (12.0-15.0); WHITE BLOOD COUNT 14.4 x10^3/uL (4.8-10.8)
[2021-08-27] MEDS ORDERED: TEMAZEPAM 15 MG CAPSULE ONE (22:02)
[2021-08-27] MEDS: ACETAMINOPHEN 325 MG TABLET PO PRN (23:46)
[2021-08-28 05:36] LABS: BASOPHILS # (AUTO) 0.1 10^3/uL (0.0-0.1); BASOPHILS % (AUTO) 0.4 %; EOSINOPHILS # (AUTO) 0.1 10^3/uL (0.0-0.7); EOSINOPHILS % (AUTO) 0.5 %; HCT - HEMATOCRIT 40.9 % (42.0-52.0); LYMPHOCYTES % (AUTO) 6.4 %; MEAN CORPUSCULAR HGB CONC 29.3 g/dL (32.0-36.0); MEAN CORPUSCULAR VOLUME 92.1 fL (80.0-94.0); MEAN PLATELET VOLUME 9.8 fL (7.4-11.4); MONOCYTES # (AUTO) 0.6 10^3/uL (0.0-1.0); MONOCYTES % (AUTO) 4.1 %; NEUTROPHILS # (AUTO) 13.5 10^3/uL (1.5-6.6); NEUTROPHILS % (AUTO) 87.2 %; NRBC ABSOLUTE COUNT (AUTO) 0.03 x10^3/uL; NUCLEATED RED BLOOD CELLS AUTO 0.2 /100WBC; PLT - PLATELET COUNT 332 10^3/uL (130-450); RED BLOOD COUNT 4.44 10^6/uL (4.70-6.10); WHITE BLOOD COUNT 15.5 x10^3/uL (4.8-10.8)
[2021-08-28] MEDS: METOCLOPRAMIDE 10 MG/2 ML VIAL IVP SCH (05:41)
[2021-08-28 05:47] LABS: CALCIUM 7.8 mg/dL (8.5-10.3); CREATININE 0.9 mg/dL (0.6-1.2); POTASSIUM 3.1 mmol/L (3.5-5.0)
[2021-08-28] MEDS ORDERED: METOCLOPRAMIDE 10 MG/2 ML VIAL ONE (05:50)
--- NOTE | 2021-08-28 08:18 | PROVIDER PROGRESS NOTE ---
Subjective - Prog Note Date Prog Note Date: 08/28/21 - Subjective Subjective: He was initially feeling better yesterday but then had multiple episodes of emesis throughout the day. He also began to develop diarrhea yesterday evening and reports her bowel movements today since midnight. He has no abdominal pain. Still feels nauseous. He admits that he has had issues with emesis that his life but that he avoids certain foods to manage it. He has been vomiting here with some of the foods he would normally be able to eat though. Current Medications - Current Medications Current Medications: Active Medications Acetaminophen (Acetaminophen 325 Mg Tablet) 650 mg PO Q4HR PRN PRN Reason: Pain or Fever > 38C (100.4F) Last Admin: 08/27/21 23:46 Dose: 650 mg Albuterol (Albuterol Neb 2.5 Mg/3 Ml) 2.5 mg INH RTQ4H PRN PRN Reason: Wheezing Last Admin: 08/23/21 08:56 Dose: 2.5 mg Enoxaparin Sodium (Enoxaparin 40 Mg/0.4 Ml Syringe) 40 mg SUBQ DAILY [facility] Last Admin: 08/27/21 18:51 Dose: Not Given Guaifenesin (Guaifenesin 600 Mg Tablet) 600 mg PO BID [facility] Last Admin: 08/27/21 21:49 Dose: Not Given Potassium Chloride (Potassium Chloride) 10 meq in 100 mls @ 100 mls/hr IV Q1H [facility] Stop: 08/28/21 11:59 Ondansetron HCl (Ondansetron 4 Mg/2 Ml Vial) 4 mg IVP Q6HR PRN PRN Reason: Nausea / Vomiting Last Admin: 08/26/21 02:33 Dose: 4 mg Oxycodone HCl (Oxycodone 5 Mg Tablet) 5 mg PO Q4HR PRN PRN Reason: PAIN Last Admin: 08/22/21 20:38 Dose: 5 mg Pantoprazole Sodium (Pantoprazole 40 Mg Vial) 40 mg IVP QDAC [facility] Prochlorperazine Edisylate (Prochlorperazine 10 Mg/2 Ml Vial) 10 mg IVP Q6HR PRN PRN Reason: Nausea / Vomiting Last Admin: 08/26/21 14:26 Dose: 10 mg Saccharomyces Boulardii (Saccharomyces Boulardii 250 Mg Capsule) 250 mg PO BIDWM [facility] Last Admin: 08/27/21 18:52 Dose: Not Given Sodium Chloride (Sodium Chloride Flush 0.9% 10 Ml Syringe) 10 ml IVP PRN PRN PRN Reason: NEEDED PER PROVIDER ORDERS Last Admin: 08/24/21 13:05 Dose: 10 ml Sodium Chloride (Sodium Chloride Flush 0.9% 10 Ml Syringe) 10 ml IVP 0100,0900,1700 [facility] Last Admin: 08/27/21 23:47 Dose: 10 ml Temazepam (Temazepam 15 Mg Capsule) 15 mg PO QPM PRN PRN Reason: Insomnia Last Admin: 08/27/21 21:51 Dose: 15 mg No Known Home Medications 08/20/21 Objective - Vital Signs/Intake & Output Reviewed Vital Signs: Yes Vital Signs: Vital Signs x48h Temp Pulse Resp BP Pulse Ox 08/28/21 05:37 36.7 C 72 16 122/66 95 Intake & Output: Intake & Output 08/25/21 08/26/21 08/27/21 08/28/21 23:59 23:59 23:59 23:59 Intake Total 1650 817.167 200 Output Total 300 Balance 1650 517.167 200 - Objective General Appearance: positive: No acute distress, Alert Eyes Bilateral: positive: Normal inspection, Conjunctivae nml ENT: positive: ENT inspection nml Neck: positive: Nml inspection Respiratory: positive: No respiratory distress. negative: Wheezes, Rales Cardiovascular: positive: Regular rate & rhythm. negative: Tachycardia Abdomen: positive: Non-tender, No distention, Abnml bowel sounds (Hyperactive). negative: Tenderness Skin: positive: Warm, Dry Extremities: positive: No pedal edema - Lab Results Fish Bones: 08/28/21 04:46 08/28/21 04:46 Other Labs: Lab Results x24hrs 08/28/21 08/28/21 08/27/21 Range/Units 04:46 04:46 05:38 WBC 15.5 H 14.4 H (4.8-10.8) x10^3/uL RBC 4.44 L 4.41 L (4.70-6.10) 10^6/uL Hgb 12.0 L 11.8 L (14.0-18.0) g/dL Hct 40.9 L 38.1 L (42.0-52.0) % MCV 92.1 86.4 (80.0-94.0) fL MCH 27.0 26.8 L (27.0-31.0) pg MCHC 29.3 L 31.0 L (32.0-36.0) g/dL RDW 17.0 H 16.2 H (12.0-15.0) % Plt Count 332 334 (130-450) 10^3/uL MPV 9.8 9.7 (7.4-11.4) fL Neut # (Auto) 13.5 H 12.2 H (1.5-6.6) 10^3/uL Lymph # (Auto) 1.0 L 1.0 L (1.5-3.5) 10^3/uL [place] # (Auto) 0.6 0.7 (0.0-1.0) 10^3/uL Eos # (Auto) 0.1 0.0 (0.0-0.7) 10^3/uL Baso # (Auto) 0.1 0.1 (0.0-0.1) 10^3/uL Absolute Nucleated RBC 0.03 0.04 x10^3/uL Nucleated RBC % 0.2 0.3 /100WBC Sodium 142 (135-145) mmol/L Potassium 3.1 L (3.5-5.0) mmol/L Chloride 106 (101-111) mmol/L Carbon Dioxide 27 (21-32) mmol/L Anion Gap 9.0 (6-13) BUN 16 (6-20) mg/dL Creatinine 0.9 (0.6-1.2) mg/dL Estimated GFR (MDRD) 84 L (>89) Glucose 115 H (70-100) mg/dL Calcium 7.8 L (8.5-10.3) mg/dL Magnesium (1.7-2.8) mg/dL 08/27/21 Range/Units 05:38 WBC (4.8-10.8) x10^3/uL RBC (4.70-6.10) 10^6/uL Hgb (14.0-18.0) g/dL Hct (42.0-52.0) % MCV (80.0-94.0) fL MCH (27.0-31.0) pg MCHC (32.0-36.0) g/dL RDW (12.0-15.0) % Plt Count (130-450) 10^3/uL MPV (7.4-11.4) fL Neut # (Auto) (1.5-6.6) 10^3/uL Lymph # (Auto) (1.5-3.5) 10^3/uL [place] # (Auto) (0.0-1.0) 10^3/uL Eos # (Auto) (0.0-0.7) 10^3/uL Baso # (Auto) (0.0-0.1) 10^3/uL Absolute Nucleated RBC x10^3/uL Nucleated RBC % /100WBC Sodium 141 (135-145) mmol/L Potassium 3.1 L (3.5-5.0) mmol/L Chloride 104 (101-111) mmol/L Carbon Dioxide 26 (21-32) mmol/L Anion Gap 11.0 (6-13) BUN 17 (6-20) mg/dL Creatinine 0.9 (0.6-1.2) mg/dL Estimated GFR (MDRD) 84 L (>89) Glucose 116 H (70-100) mg/dL Calcium 7.7 L (8.5-10.3) mg/dL Magnesium 2.4 (1.7-2.8) mg/dL Assessment/Plan - Problem List (1) Intractable nausea and vomiting Impression: This may be a chronic problem for him with certain foods but he is now unable to keep anything down at all. Given his ongoing nausea and vomiting, the plan was to pursue a gastric emptying study but unfortunately did not have the isotope available and we do not have nuclear medicine available for the next 3 days. I spoke with general surgery and we have decided that the plan will be to obtain a CT of the abdomen pelvis with oral contrast to see if that can reveal the etiology of the nausea and vomiting. This is unremarkable and the plan will be to pursue an endoscopy in the morning. We will start the patient on a PPI in the interim. And follow-up with CT results. (2) Diarrhea Impression: He had diarrhea a few days ago which resolved but now has returned late last night. We did check for C. difficile 2 days ago and this was negative. If his diarrhea persists we may need to recheck for C. difficile given he had been on multiple antibiotics for the pneumonia. We will resume IV hydration for the time being as he may be a little hemoconcentrated as he looks dry and his cell counts are increasing. (3) Acute pancreatitis Impression: He has no pain but this may be contributing to his ongoing nausea and vomiting. We will repeat a CT with oral contrast today for further evaluation as mentioned above. Qualifiers: Pancreatitis type: idiopathic Acute pancreatitis complication: no infection or necrosis Qualified Code(s): K85.00 - Idiopathic acute pancreatitis without necrosis or infection (4) Community acquired pneumonia Impression: He was treated for potential right lower lobe infiltrate although in hindsight suspect there is likely atelectasis given lack of dyspnea, fever, cough. Antibiotics have been discontinued. Qualifiers: Laterality: right Lung location: lower lobe of lung Qualified Code(s): J18.9 - Pneumonia, unspecified organism (5) Leukocytosis Impression: His white count is increasing but I suspect is likely reactive and due to hemoconcentration given lack of oral intake. We will continue to hold off on antibiotics. We will give him a liter of lactated Ringer's and resume IV hydration. (6) Hypokalemia Impression: Secondary to GI losses and we will continue to replace intravenously.
[2021-08-28] MEDS ORDERED: LACTATED RINGERS 1,000 ML IV ONE (08:32)
[2021-08-28] MEDS: SACCHAROMYCES BOULARDII 250 MG CAPSULE PO SCH ×2 (09:52→16:51)
[2021-08-28] MEDS: guaiFENesin 600 MG TABLET PO SCH ×2 (09:52→22:02)
[2021-08-28] MEDS ORDERED: POTASSIUM CHLOR 10 MEQ/100 ML 40 MEQ/400 ML BAG IV ONE (09:56)
[2021-08-28] MEDS ORDERED: LACTATED RINGERS 2,000 ML ONE (09:56)
[2021-08-28] MEDS: POTASSIUM CHLOR 10 MEQ/100 ML 10 MEQ/100 ML BAG IV SCH ×4 (10:02→15:21)
[2021-08-28] MEDS: PANTOPRAZOLE 40 MG VIAL IVP SCH (10:06)
[2021-08-28] MEDS: ENOXAPARIN 40 MG/0.4 ML SYRINGE SUBQ SCH (10:06)
[2021-08-28] MEDS: SODIUM CHLORIDE FLUSH 0.9% 10 ML SYRINGE IVP SCH ×2 (10:07→16:51)
[2021-08-28] MEDS ORDERED: ENOXAPARIN 40 MG/0.4 ML SYRINGE SUBQ ONE (10:08)
[2021-08-28] MEDS ORDERED: PANTOPRAZOLE 40 MG VIAL ONE (10:08)
[2021-08-28] MEDS: LACTATED RINGERS 1,000 ML IV SCH ×2 (11:08→19:46)
[2021-08-28] MEDS ORDERED: DIATR MEGLU/DIATRIZOATE SODIUM 120 ML BOTTLE PO ONE (14:00)
--- NOTE | 2021-08-28 15:34 | CT Report ---
PROCEDURE: Abdomen/Pelvis WO INDICATIONS: Persistent nausea/vomiting. Recent pancreatitis. TECHNIQUE: Noncontrast 5 mm thick sections acquired from the diaphragms to the symphysis. 5 mm coronal and sagi ttal reformats were then performed. For radiation dose reduction, the following was used: automated exposure control, adjustment of mA and/or kV according to patient size. COMPARISON: 08/20/2021. FINDINGS: Image quality: Excellent. ABDOMEN: Lung bases: Scattered atelectasis/small infiltrate in bilateral lung bases are seen. Heart size is no rmal. Solid organs: Liver and spleen are normal in size. Well-circumscribed hypodensities are again seen s cattered in the liver parenchyma unchanged in size and appearance from previous studies and likely re present hepatic cysts. Gallbladder is distended and shows no gallbladder wall thickening or calcifie d gallstones. Pancreas is prominent in size with moderate peripancreatic inflammatory changes and fat stranding. Il l-defined fluid collection adjacent to pancreatic head is seen and measures up to 5 x 6.9 x by 5.9 cm in size series 3 image 32 and series 6 image 24. No other peripancreatic fluid collection is seen. No adrenal nodules. Kidneys are normal in size, without hydronephrosis or nephrolithiasis. Peritoneum and bowel: There is no bowel obstruction. Questionable wall thickening involving second an d third portion of duodenum adjacent to pancreatic head is seen likely represent reactive inflammator y changes. No other area of abnormal bowel wall thickening. No mesenteric fat stranding. No free flui d or free air. Sigmoid diverticulosis is seen, no CT evidence of acute diverticulitis. No abscess col lection. Nodes and vessels: No retroperitoneal or mesenteric adenopathy by size criteria. Aorta and inferior vena cava are normal in caliber. Miscellaneous: No ventral hernias. PELVIS: Genitourinary: Bladder wall thickness is normal. Markedly enlarged prostate gland with significant m ass effect on floor of urinary bladder is seen. Miscellaneous: No inguinal lymphadenopathy. Small bilateral inguinal hernias are seen containing fat only. Bones: No suspicious bony lesions. Partial ankylosis involving bilateral sacroiliac joints are again seen. No vertebral body compression fractures. IMPRESSION: 1. Finding is consistent with patient's known history of pancreatitis with suggestion of developing p seudocyst formation adjacent to anterior and superior aspect of pancreatic head as above. 2. No peritoneal free fluid or free air. Wall thickening involving second and third portion of duoden um suggestive of reactive inflammatory changes. No bowel obstruction. No discrete drainable abscess c ollection. Colonic diverticulosis, no evidence of acute diverticulitis. 3. Stable appearing hepatic cysts unchanged in size and appearance from prior study. 4. Enlarged prostate gland with mass effect on floor of urinary bladder. Reviewed by: Levar Branch MD on 08/28/2021 3:32 PM PDT Approved by: Levar Branch MD on 08/28/2021 3:32 PM PDT Station ID: [id number]
[2021-08-28] MEDS: oxyCODONE 5 MG TABLET PO PRN (22:02)
[2021-08-29] MEDS: SODIUM CHLORIDE FLUSH 0.9% 10 ML SYRINGE IVP SCH ×3 (02:03→17:09)
[2021-08-29] MEDS: LACTATED RINGERS 1,000 ML IV SCH ×3 (03:04→17:31)
[2021-08-29] MEDS: oxyCODONE 5 MG TABLET PO PRN (03:04)
[2021-08-29] MEDS: PANTOPRAZOLE 40 MG VIAL IVP SCH ×2 (05:44→21:57)
--- NOTE | 2021-08-29 07:37 | PROVIDER PROGRESS NOTE ---
Subjective - Prog Note Date Prog Note Date: 08/29/21 - Subjective Subjective: He was able to tolerate oral contrast yesterday. No nausea or vomiting but he has had limited p.o. intake. Denies abdominal pain. Current Medications - Current Medications Current Medications: Active Medications Acetaminophen (Acetaminophen 325 Mg Tablet) 650 mg PO Q4HR PRN PRN Reason: Pain or Fever > 38C (100.4F) Last Admin: 08/27/21 23:46 Dose: 650 mg Albuterol (Albuterol Neb 2.5 Mg/3 Ml) 2.5 mg INH RTQ4H PRN PRN Reason: Wheezing Last Admin: 08/23/21 08:56 Dose: 2.5 mg Enoxaparin Sodium (Enoxaparin 40 Mg/0.4 Ml Syringe) 40 mg SUBQ DAILY [facility] Last Admin: 08/29/21 08:31 Dose: 40 mg Guaifenesin (Guaifenesin 600 Mg Tablet) 600 mg PO BID [facility] Last Admin: 08/29/21 08:28 Dose: 600 mg Lactated Ringer's (Lr) 1,000 mls @ 125 mls/hr IV .Q8H [facility] Last Admin: 08/29/21 10:05 Dose: 125 mls/hr Ondansetron HCl (Ondansetron 4 Mg/2 Ml Vial) 4 mg IVP Q6HR PRN PRN Reason: Nausea / Vomiting Last Admin: 08/26/21 02:33 Dose: 4 mg Oxycodone HCl (Oxycodone 5 Mg Tablet) 5 mg PO Q4HR PRN PRN Reason: PAIN Last Admin: 08/29/21 03:04 Dose: 5 mg Pantoprazole Sodium (Pantoprazole 40 Mg Vial) 40 mg IVP QDAC [facility] Last Admin: 08/29/21 05:44 Dose: 40 mg Prochlorperazine Edisylate (Prochlorperazine 10 Mg/2 Ml Vial) 10 mg IVP Q6HR PRN PRN Reason: Nausea / Vomiting Last Admin: 08/26/21 14:26 Dose: 10 mg Saccharomyces Boulardii (Saccharomyces Boulardii 250 Mg Capsule) 250 mg PO BIDWM [facility] Last Admin: 08/29/21 08:28 Dose: 250 mg Sodium Chloride (Sodium Chloride Flush 0.9% 10 Ml Syringe) 10 ml IVP PRN PRN PRN Reason: NEEDED PER PROVIDER ORDERS Last Admin: 08/24/21 13:05 Dose: 10 ml Sodium Chloride (Sodium Chloride Flush 0.9% 10 Ml Syringe) 10 ml IVP 0100,0900, 1700 [facility]AR[facility] Last Admin: 08/29/21 08:32 Dose: 10 ml Temazepam (Temazepam 15 Mg Capsule) 15 mg PO QPM PRN PRN Reason: Insomnia Last Admin: 08/27/21 21:51 Dose: 15 mg No Known Home Medications 08/20/21 Objective - Vital Signs/Intake & Output Reviewed Vital Signs: Yes Vital Signs: Vital Signs x48h Temp Pulse Pulse Resp BP Pulse Ox 08/29/21 07: 36.7 C 85 18 131/68 H 93 08/29/21 05:00 36.8 C 77 18 126/74 95 Intake & Output: Intake & Output 08/26/21 08/27/21 08/28/21 08/29/21 23:59 23:59 23:59 23:59 Intake Total 817.112 441 5800.000 912.5 Output Total 300 Balance 517.017 342 9282.000 912.5 - Objective General Appearance: positive: No acute distress, Alert Eyes Bilateral: positive: Conjunctivae nml ENT: positive: ENT inspection nml Neck: positive: Nml inspection Respiratory: positive: No respiratory distress Abdomen: positive: Non-tender, Nml bowel sounds, No distention. negative: Tenderness - Lab Results Fish Bones: 08/29/21 07:41 08/29/21 07:41 Assessment/Plan - Problem List (1) Intractable nausea and vomiting Impression: Repeat CT yesterday continues to show peripancreatic edema and concern for pseudocyst development. There was also inflammation surrounding the duodenum. My concern is that the pancreatitis may be causing his nausea or vomiting or he could have duodenitis/ulcer causing his nausea and vomiting. We will therefore proceed with an EGD today. Based off of those findings, we will consider resuming a diet. If there is evidence of significant duodenitis/esophagitis or an ulcer we will likely keep him n.p.o. and start him on PPN over the weekend. We will keep him on a PPI daily. Follow-up EGD results. (2) Acute pancreatitis Impression: He has no pain but I suspect this may have contributed to his ongoing nausea and vomiting. We will plan for EGD today given admission duodenum on the CT. Maintain n.p.o. status for time being. Qualifiers: Pancreatitis type: idiopathic Acute pancreatitis complication: no infection or necrosis Qualified Code(s): K85.00 - Idiopathic acute pancreatitis without necrosis or infection (3) Leukocytosis Impression: As recommended elevated but is slowly declining. I once again do suspect that this is likely reactive given his ongoing nausea and vomiting and the pancreatitis. We will continue to hold off on antibiotics. (4) Hypokalemia Impression: This is secondary to GI losses and continue to replace this intravenously.
[2021-08-29 07:52] LABS: BASOPHILS % (AUTO) 0.1 %; EOSINOPHILS # (AUTO) 0.1 10^3/uL (0.0-0.7); EOSINOPHILS % (AUTO) 0.3 %; HCT - HEMATOCRIT 35.3 % (42.0-52.0); HGB - HEMOGLOBIN 11.1 g/dL (14.0-18.0); LYMPHOCYTES # (AUTO) 0.9 10^3/uL (1.5-3.5); LYMPHOCYTES % (AUTO) 5.9 %; MEAN CORPUSCULAR HEMOGLOBIN 27.8 pg (27.0-31.0); MEAN CORPUSCULAR HGB CONC 31.4 g/dL (32.0-36.0); MEAN CORPUSCULAR VOLUME 88.3 fL (80.0-94.0); MEAN PLATELET VOLUME 9.1 fL (7.4-11.4); MONOCYTES # (AUTO) 0.5 10^3/uL (0.0-1.0); MONOCYTES % (AUTO) 3.5 %; NEUTROPHILS # (AUTO) 13.4 10^3/uL (1.5-6.6); NEUTROPHILS % (AUTO) 89.3 %; PLT - PLATELET COUNT 325 10^3/uL (130-450); RED CELL DISTRIBUTION WIDTH 16.5 % (12.0-15.0)
[2021-08-29 08:00] LABS: CALCIUM 7.6 mg/dL (8.5-10.3); CREATININE 0.9 mg/dL (0.6-1.2); POTASSIUM 3.3 mmol/L (3.5-5.0)
[2021-08-29] MEDS: SACCHAROMYCES BOULARDII 250 MG CAPSULE PO SCH ×2 (08:28→17:09)
[2021-08-29] MEDS: guaiFENesin 600 MG TABLET PO SCH ×2 (08:28→21:57)
[2021-08-29] MEDS: POTASSIUM CHLOR 10 MEQ/100 ML 10 MEQ/100 ML BAG IV SCH ×4 (08:28→13:02)
[2021-08-29] MEDS: ENOXAPARIN 40 MG/0.4 ML SYRINGE SUBQ SCH (08:31)
--- NOTE | 2021-08-29 12:46 | ANESTHESIA ---
Pre-Anesthesia VS, & Labs - Diagnosis Abdominal pain, possible pancreatitis. - Procedure EGD Vital Signs: Temp Pulse Resp BP Pulse Ox 36.8 C 85 20 140/71 H 94 08/29/21 12:10 08/29/21 12:10 08/29/21 12:10 08/29/21 12:10 08/29/21 12:10 Height: 5 ft 11 in Weight (kg): 108.5 kg Body Mass Index: 33.3 BMI Classification: Obese - NPO >8 hours - Lab Results Current Lab Results: Laboratory Tests 08/29/21 07:41: Sodium 139, Potassium 3.3 L, Chloride 104, Carbon Dioxide 25, Anion Gap 10.0, BUN 13, Creatinine 0.9, Estimated GFR (MDRD) 84 L, Glucose 97, Calcium 7.6 L 08/29/21 07:41: WBC 15.0 H, RBC 4.00 L, Hgb 11.1 L, Hct 35.3 L, MCV 88.3, MCH 27.8, MCHC 31.4 L, RDW 16.5 H, Plt Count 325, MPV 9.1, Neut # (Auto) 13.4 H, Lymph # (Auto) 0.9 L, [place] # (Auto) 0.5, Eos # (Auto) 0.1, Baso # (Auto) 0.0, Absolute Nucleated RBC 0.00, Nucleated RBC % 0.0 08/28/21 04:46: Sodium 142, Potassium 3.1 L, Chloride 106, Carbon Dioxide 27, Anion Gap 9.0, BUN 16, Creatinine 0.9, Estimated GFR (MDRD) 84 L, Glucose 115 H, Calcium 7.8 L 08/28/21 04:46: WBC 15.5 H, RBC 4.44 L, Hgb 12.0 L, Hct 40.9 L, MCV 92.1, MCH 27.0, MCHC 29.3 L, RDW 17.0 H, Plt Count 332, MPV 9.8, Neut # (Auto) 13.5 H, Lymph # (Auto) 1.0 L, [place] # (Auto) 0.6, Eos # (Auto) 0.1, Baso # (Auto) 0.1, Absolute Nucleated RBC 0.03, Nucleated RBC % 0.2 08/27/21 05:38: WBC 14.4 H, RBC 4.41 L, Hgb 11.8 L, Hct 38.1 L, MCV 86.4, MCH 26.8 L, MCHC 31.0 L, RDW 16.2 H, Plt Count 334, MPV 9.7, Neut # (Auto) 12.2 H, Lymph # (Auto) 1.0 L, [place] # (Auto) 0.7, Eos # (Auto) 0.0, Baso # (Auto) 0.1, Absolute Nucleated RBC 0.04, Nucleated RBC % 0.3 08/27/21 05:38: Sodium 141, Potassium 3.1 L, Chloride 104, Carbon Dioxide 26, Anion Gap 11.0, BUN 17, Creatinine 0.9, Estimated GFR (MDRD) 84 L, Glucose 116 H , Calcium 7.7 L, Magnesium 2.4 08/26/21 04:59: Sodium 142, Potassium 3.1 L, Chloride 103, Carbon Dioxide 28, Anion Gap 11.0, BUN 17, Creatinine 0.9, Estimated GFR (MDRD) 84 L, Glucose 118 H , Calcium 7.8 L 08/26/21 04:59: WBC 13.2 H, RBC 4.52 L, Hgb 12.4 L, Hct 39.3 L, MCV 86.9, MCH 27.4, MCHC 31.6 L, RDW 15.9 H, Plt Count 275, MPV 9.6, Neut # (Auto) Not Reportable, Lymph # (Auto) Not Reportable, [place] # (Auto) Not Reportable, Eos # (Auto) Not Reportable, Baso # (Auto) Not Reportable, Absolute Nucleated RBC Not Reportable, Total Counted 100, Band Neuts % (Manual) 3, Abnorm Lymph % (Manual) 0, Myelocytes % 1 H, Nucleated RBC % Not Reportable, Neutrophils # (Manual) 12.0 H, Lymphocytes # (Manual) 0.5 L, Monocytes # (Manual) 0.5, Eosinophils # (Manual) 0.0, Basophils # (Manual) 0.0, Differential Comment MANUAL DIFFERENTIAL, WBC Morphology NORMAL APPEARANCE, Platelet Estimate NORMAL (130- 450,000), Platelet Morphology NORMAL APPEARANCE, RBC Morph Micro Appear NORMAL APPEARANCE 08/25/21 07:29: Magnesium 2.7 08/25/21 07:29: Sodium 142, Potassium 3.1 L, Chloride 101, Carbon Dioxide 28, A nion Gap 13.0, BUN 19, Creatinine 0.9, Estimated GFR (MDRD) 84 L, Glucose 120 H, Calcium 7.9 L 08/25/21 07:29: WBC 14.9 H, RBC 4.72, Hgb 13.0 L, Hct 40.6 L, MCV 86.0, MCH 27.5 , MCHC 32.0, RDW 15.5 H, Plt Count 253, MPV 9.6, Neut # (Auto) 12.9 H, Lymph # (Auto) 0.7 L, [place] # (Auto) 0.9, Eos # (Auto) 0.0, Baso # (Auto) 0.0, Absolute Nucleated RBC 0.04, Nucleated RBC % 0.3 08/24/21 04:21: WBC 15.7 H, RBC 4.35 L, Hgb 12.0 L, Hct 38.5 L, MCV 88.5, MCH 27.6, MCHC 31.2 L, RDW 15.3 H, Plt Count 249, MPV 10.0, Neut # (Auto) 14.0 H, Lymph # (Auto) 0.6 L, [place] # (Auto) 0.9, Eos # (Auto) 0.0, Baso # (Auto) 0.1, Absolute Nucleated RBC 0.02, Nucleated RBC % 0.1 08/24/21 04:21: Sodium 144, Potassium 3.0 L, Chloride 102, Carbon Dioxide 29, Anion Gap 13.0, BUN 19, Creatinine 1.0, Estimated GFR (MDRD) 75 L, Glucose 125 H , Calcium 7.9 L, Lipase 40 08/23/21 04:48: WBC 15.9 H, RBC 4.35 L, Hgb 11.9 L, Hct 38.7 L, MCV 89.0, MCH 27.4, MCHC 30.7 L, RDW 15.3 H, Plt Count 210, MPV 10.1, Neut # (Auto) 14.1 H, Lymph # (Auto) 0.7 L, [place] # (Auto) 0.9, Eos # (Auto) 0.1, Baso # (Auto) 0.1, Absolute Nucleated RBC 0.00, Nucleated RBC % 0.0 08/23/21 04:48: Sodium 143, Potassium 3.3 L, Chloride 105, Carbon Dioxide 28, Anion Gap 10.0, BUN 15, Creatinine 0.9, Estimated GFR (MDRD) 84 L, Glucose 111 H , Calcium 8.0 L, Lipase 57 H 08/22/21 05:02: Lactic Acid 1.2 08/22/21 05:02: WBC 19.7 H, RBC 4.36 L, Hgb 11.9 L, Hct 38.2 L, MCV 87.6, MCH 27.3, MCHC 31.2 L, RDW 15.3 H, Plt Count 206, MPV 10.1, Neut # (Auto) Not Reportable, Lymph # (Auto) Not Reportable, [place] # (Auto) Not Reportable, Eos # ( Auto) Not Reportable, Baso # (Auto) Not Reportable, Absolute Nucleated RBC Not Reportable, Total Counted 100, Band Neuts % (Manual) 8, Abnorm Lymph % (Manual) 0, Nucleated RBC % Not Reportable, Neutrophils # (Manual) 18.1 H, Lymphocytes # (Manual) 0.8 L, Monocytes # (Manual) 0.8, Eosinophils # (Manual) 0.0, Basophils # (Manual) 0.0, Differential Comment MANUAL DIFFERENTIAL, Platelet Estimate NORMAL (130-450,000), RBC Morph Micro Appear NORMAL APPEARANCE 08/22/21 05:02: Sodium 138, Potassium 3.6, Chloride 106, Carbon Dioxide 25, Anion Gap 7.0, BUN 13, Creatinine 0.9, Estimated GFR (MDRD) 84 L, Glucose 137 H, Calcium 7.7 L, Lipase 213 H 08/21/21 22:44: D-Dimer > 1050.0 H 08/21/21 22:44: Lactic Acid 1.9 08/21/21 12:51: Lactic Acid 2.7 H 08/21/21 08:54: Lactic Acid 2.8 H 08/21/21 05:40: Lactic Acid 1.6 08/21/21 05:40: WBC 21.9 H, RBC 5.00, Hgb 13.6 L, Hct 43.9, MCV 87.8, MCH 27.2, MCHC 31.0 L, RDW 15.4 H, Plt Count 253, MPV 9.6, Neut # (Auto) Not Reportable, Lymph # (Auto) Not Reportable, [place] # (Auto) Not Reportable, Eos # (Auto) Not Reportable, Baso # (Auto) Not Reportable, Absolute Nucleated RBC Not Reportable, Total Counted 100, Band Neuts % (Manual) 4, Abnorm Lymph % (Manual) 0, Nucleated RBC % Not Reportable, Neutrophils # (Manual) 20.1 H, Lymphocytes # (Manual) 0.9 L, Monocytes # (Manual) 0.9, Eosinophils # (Manual) 0.0, Basophils # (Manual) 0.0, Differential Comment MANUAL DIFFERENTIAL, WBC Morphology NORMAL APPEARANCE, Platelet Estimate NORMAL (130-450,000), Platelet Morphology NORMAL APPEARANCE, RBC Morph Micro Appear NORMAL APPEARANCE 08/21/21 05:40: Sodium 143, Potassium 4.1, Chloride 111, Carbon Dioxide 24, Anion Gap 8.0, BUN 12, Creatinine 1.1, Estimated GFR (MDRD) 67 L, Glucose 161 H, Calcium 8.1 L, Lipase 828 H 08/21/21 00:55: Lactic Acid 1.6 08/20/21 20:58: Lactic Acid 2.3 H 08/20/21 17:02: Lactic Acid 2.5 H 08/20/21 13:06: Lactic Acid 4.0 H* 08/20/21 09:20: Lactic Acid 4.8 H* 08/20/21 07:31: WBC 16.1 H, RBC 4.85, Hgb 13.4 L, Hct 42.5, MCV 87.6, MCH 27.6, MCHC 31.5 L, RDW 14.6, Plt Count 264, MPV 9.6, Neut # (Auto) 15.1 H, Lymph # (Auto) 0.5 L, [place] # (Auto) 0.5, Eos # (Auto) 0.0, Baso # (Auto) 0.0, Absolute Nucleated RBC 0.00, Nucleated RBC % 0.0 08/20/21 07:31: Sodium 141, Potassium 3.9, Chloride 106, Carbon Dioxide 23, Anion Gap 12.0, BUN 11, Creatinine 1.2, Estimated GFR (MDRD) 61 L, Glucose 239 H , Calcium 8.4 L, Magnesium 2.2, Triglycerides 65 08/20/21 02:55: Troponin I High Sens 3.4 08/20/21 02:55: Sodium 140, Potassium 3.5, Chloride 103, Carbon Dioxide 24, Anion Gap 13.0, BUN 11, Creatinine 1.3 H, Estimated GFR (MDRD) 55 L, Glucose 222 H, Calcium 8.9, Total Bilirubin 0.5, AST 23, ALT 15, Alkaline Phosphatase 70, Total Protein 7.4, Albumin 4.0, Globulin 3.4, Albumin/Globulin Ratio 1.2, Lipase 1404 H 08/20/21 02:55: WBC 18.2 H, RBC 4.95, Hgb 13.6 L, Hct 43.6, MCV 88.1, MCH 27.5, MCHC 31.2 L, RDW 14.6, Plt Count 271, MPV 10.3, Neut # (Auto) 16.0 H, Lymph # (Auto) 1.4 L, [place] # (Auto) 0.7, Eos # (Auto) 0.0, Baso # (Auto) 0.0, Absolute Nucleated RBC 0.00, Nucleated RBC % 0.0 Fish Bones: 08/29/21 07:41 08/29/21 07:41 Home Medications and Allergies Home Medications: Ambulatory Orders No Known Home Medications 08/20/21 Active Medications Acetaminophen (Acetaminophen 325 Mg Tablet) 650 mg PO Q4HR PRN PRN Reason: Pain or Fever > 38C (100.4F) Last Admin: 08/27/21 23:46 Dose: 650 mg Albuterol (Albuterol Neb 2.5 Mg/3 Ml) 2.5 mg INH RTQ4H PRN PRN Reason: Wheezing Last Admin: 08/23/21 08:56 Dose: 2.5 mg Enoxaparin Sodium (Enoxaparin 40 Mg/0.4 Ml Syringe) 40 mg SUBQ DAILY [facility] Last Admin: 08/29/21 08:31 Dose: 40 mg Guaifenesin (Guaifenesin 600 Mg Tablet) 600 mg PO BID [facility] Last Admin: 08/29/21 08:28 Dose: 600 mg Lactated Ringer's (Lr) 1,000 mls @ 125 mls/hr IV .Q8H [facility] Last Admin: 08/29/21 10:05 Dose: 125 mls/hr Ondansetron HCl (Ondansetron 4 Mg/2 Ml Vial) 4 mg IVP Q6HR PRN PRN Reason: Nausea / Vomiting Last Admin: 08/26/21 02:33 Dose: 4 mg Oxycodone HCl (Oxycodone 5 Mg Tablet) 5 mg PO Q4HR PRN PRN Reason: PAIN Last Admin: 08/29/21 03:04 Dose: 5 mg Pantoprazole Sodium (Pantoprazole 40 Mg Vial) 40 mg IVP QDAC [facility] Last Admin: 08/29/21 05:44 Dose: 40 mg Prochlorperazine Edisylate (Prochlorperazine 10 Mg/2 Ml Vial) 10 mg IVP Q6HR PRN PRN Reason: Nausea / Vomiting Last Admin: 08/26/21 14:26 Dose: 10 mg Saccharomyces Boulardii (Saccharomyces Boulardii 250 Mg Capsule) 250 mg PO BIDWM [facility] Last Admin: 08/29/21 08:28 Dose: 250 mg Sodium Chloride (Sodium Chloride Flush 0.9% 10 Ml Syringe) 10 ml IVP PRN PRN PRN Reason: NEEDED PER PROVIDER ORDERS Last Admin: 08/24/21 13:05 Dose: 10 ml Sodium Chloride (Sodium Chloride Flush 0.9% 10 Ml Syringe) 10 ml IVP 0100,0900,1700 [facility] Last Admin: 08/29/21 08:32 Dose: 10 ml Temazepam (Temazepam 15 Mg Capsule) 15 mg PO QPM PRN PRN Reason: Insomnia Last Admin: 08/27/21 21:51 Dose: 15 mg No Known Home Medications 08/20/21 Allergies/Adverse Reactions: Allergies Allergy/AdvReac Type Severity Reaction Status Date / Time No Known Drug Allergies Allergy Verified 08/20/21 02:46 Anes History & Medical History - Anesthetic History Anesthesia Complications: reports: No previous complications Family history of Anesthesia Complications: Denies Family history of Malignant Hyperthermia: Denies - Medical History Cardiovascular: reports: None Pulmonary: reports: None Gastrointestinal: reports: GERD (poorly controlled), Other Urinary: reports: Frequency Neuro: reports: None Musculoskeletal: reports: None Endocrine/Autoimmune: reports: None Blood Disorders: reports: None Skin: reports: None Smoking Status: Never smoker Psychosocial: reports: No issues indicated History of Cancer?: No - Surgical History General: reports: Colonoscopy Other Past Surgical History: Patient denies any previous surgeries Results - EKG Results EKG Comparison: Reviewed EKG Exam General: Alert, Oriented x3, Cooperative, No acute distress Dental: Poor dentition Mouth Openin Fingerbreadth Mallampati classification: IV Thyromental Distance: 4-6 cm Respiratory: Lungs clear, Normal breath sounds, No respiratory distress, No accessory muscle use Cardiovascular: Regular rate, Normal S1, Normal S2, No murmurs Mental/Cognitive Status: Alert/Oriented X3, Normal for patient Plan Anesthesia Type: General, Total IV Consent for Procedure(s) Verified and Reviewed: Yes Code Status: Attempt Resuscitation ASA classification: 2-Mild systemic disease Is this case an emergency?: Yes
--- NOTE | 2021-08-29 13:04 | PROVIDER PROGRESS NOTE ---
Subjective - General Admit Date: 08/20/21 - Review of Systems General: positive: Fatigue, Malaise Gastrointestinal: positive: Nausea - Other Other Information/Narrative: Mr. Ocasio continues to feel poorly. He had a CT yesterday that showed inflammation of the head of the pancrease and possible early pseudocyst fo rmation. He was able to hold on to the contrast and had a bowel movement in the afternoon but was severely nauseated throughout the process. He reports he just generally feels poorly. His is at the bedside. Objective - Patient Data Reviewed Vital Signs: Yes Vital Signs: Vital Signs x48h Temp Pulse Resp BP Pulse Ox 08/29/21 12:10 36.8 C 85 20 140/71 H 94 08/29/21 07: 36.7 C 85 18 131/68 H 93 Weight: Weight 08/27/21 08/28/21 08/29/21 23:59 23:59 23:59 Weight (kg) 108.5 kg Intake & Output: Intake and Output Totals x24h 08/27/21 08/28/21 08/29/21 23:59 23:59 23:59 Intake Total 200 2387.000 1988.583 Balance 200 2387.000 1988.583 - Lab Results Lab Results: 08/29/21 07:41 08/29/21 07:41 Other Lab Results: Lab Results x24hrs 08/29/21 08/29/21 Range/Units 07:41 07:41 WBC 15.0 H (4.8-10.8) x10^3/uL RBC 4.00 L (4.70-6.10) 10^6/uL Hgb 11.1 L (14.0-18.0) g/dL Hct 35.3 L (42.0-52.0) % MCV 88.3 (80.0-94.0) fL MCH 27.8 (27.0-31.0) pg MCHC 31.4 L (32.0-36.0) g/dL RDW 16.5 H (12.0-15.0) % Plt Count 325 (130-450) 10^3/uL MPV 9.1 (7.4-11.4) fL Neut # (Auto) 13.4 H (1.5-6.6) 10^3/uL Lymph # (Auto) 0.9 L (1.5-3.5) 10^3/uL Love # (Auto) 0.5 (0.0-1.0) 10^3/uL Eos # (Auto) 0.1 (0.0-0.7) 10^3/uL Baso # (Auto) 0.0 (0.0-0.1) 10^3/uL Absolute Nucleated RBC 0.00 x10^3/uL Nucleated RBC % 0.0 /100WBC Sodium 139 (135-145) mmol/L Potassium 3.3 L (3.5-5.0) mmol/L Chloride 104 (101-111) mmol/L Carbon Dioxide 25 (21-32) mmol/L Anion Gap 10.0 (6-13) BUN 13 (6-20) mg/dL Creatinine 0.9 (0.6-1.2) mg/dL Estimated GFR (MDRD) 84 L (>89) Glucose 97 (70-100) mg/dL Calcium 7.6 L (8.5-10.3) mg/dL - Imaging Results Radiology Imaging: positive: Final report received Imaging Results Comments: As reported with no evidence of free fluid free air. - Current Medications Current Medications: Current Medications Generic Name Dose Route Start Last Admin Trade Name Freq PRN Reason Stop Dose Admin Acetaminophen 650 mg 08/23/21 07:06 08/27/21 23:46 Acetaminophen 325 Mg Tablet PO 650 mg Q4HR PRN Administration Pain or Fever > 38C (100.4F) Albuterol 2.5 mg 08/23/21 08:02 08/23/21 08:56 Albuterol Neb 2.5 Mg/3 Ml INH 2.5 mg RTQ4H PRN Administration Wheezing Enoxaparin Sodium 40 mg 08/23/21 09:00 08/29/21 08:31 Enoxaparin 40 Mg/0.4 Ml Syringe SUBQ 40 mg DAILY [facility] Administration Guaifenesin 600 mg 08/21/21 23:00 08/29/21 08:28 Guaifenesin 600 Mg Tablet PO 600 mg BID [facility] Administration Lactated Ringer's 1,000 mls @ 125 mls/hr 08/28/21 09:00 08/29/21 10:05 Lr IV 125 mls/hr .Q8H [facility] Administration Ondansetron HCl 4 mg 08/20/21 06:02 08/26/21 02:33 Ondansetron 4 Mg/2 Ml Vial IVP 4 mg Q6HR PRN Administration Nausea / Vomiting Oxycodone HCl 5 mg 08/22/21 07:40 08/29/21 03:04 Oxycodone 5 Mg Tablet PO 5 mg Q4HR PRN Administration PAIN Pantoprazole Sodium 40 mg 08/28/21 08:00 08/29/21 05:44 Pantoprazole 40 Mg Vial IVP 40 mg QDAC [facility] Administration Prochlorperazine Edisylate 10 mg 08/20/21 06:02 08/26/21 14:26 Prochlorperazine 10 Mg/2 Ml Vial IVP 10 mg Q6HR PRN Administration Nausea / Vomiting Saccharomyces Boulardii 250 mg 08/22/21 08:00 08/29/21 08:28 Saccharomyces Boulardii 250 Mg Capsule PO 250 mg BIDWM [facility] Administration Sodium Chloride 10 ml 08/20/21 06:02 08/24/21 13:05 Sodium Chloride Flush 0.9% 10 Ml Syringe IVP 10 ml PRN PRN Administration NEEDED PER PROVIDER ORDERS Sodium Chloride 10 ml 08/20/21 09:00 08/29/21 08:32 Sodium Chloride Flush 0.9% 10 Ml Syringe IVP 10 ml 0100,0900,1700 JAROD Administration Temazepam 15 mg 08/22/21 21:03 08/27/21 21:51 Temazepam 15 Mg Capsule PO 15 mg QPM PRN Administration Insomnia - Physical Exam General Appearance: positive: Alert, Lethargic Eyes Bilateral: positive: Normal inspection, PERRL, EOMI Respiratory: positive: No respiratory distress Abdomen: positive: Nml bowel sounds, No distention. negative: Guarding, Rebound Neurologic/Psychiatric: positive: Oriented x3 ABX Reporting Has patient been on IV antibiotics over the past 48 hours?: No Impression/Plan - Problem List Problem List: Intractable nausea and vomiting in the setting of a 66 year old gentleman with a fairly severe episode of acute pancreatitis. His pain has improved signifiantly but leukocytosis remains and nausea is intractable. Agree with recommendation for EGD. We discussed the risks and benefits of the procedure and the patient has expressed a desire to complete it today.
[2021-08-29] MEDS ORDERED: LIDOCAINE-MPF 2% 5 ML VIAL ONE (13:08)
[2021-08-29] MEDS ORDERED: PROPOFOL 200 MG/20 ML VIAL IVP ONE ×2 (13:08→13:58)
--- NOTE | 2021-08-29 13:57 | ANESTHESIA POST OP EVALUATION ---
Anesthesia Post Eval - Post Anesthesia Eval Vitals: Last Vital Signs Temp 36.8 C 08/29/21 12:10 Pulse 85 08/29/21 12:10 Resp 20 08/29/21 12:10 BP 140/71 H 08/29/21 12:10 Pulse Ox 94 08/29/21 12:10 CV Function Including HR & BP: Stable Pain Control: Satisfactory Nausea & Vomiting: Negative Mental Status: Baseline Respiratory Status: Airway Patent Hydration Status: Satisfactory Anesthesia Complications: None
[2021-08-29] MEDS: SODIUM CHLORIDE FLUSH 0.9% 10 ML SYRINGE IVP PRN (14:35)
[2021-08-29] MEDS: FLUCONAZOLE 200 MG/100 ML 100 ML IV SCH ×2 (14:37→16:40)
[2021-08-29] MEDS: FAT EMULSION 20% 250 ML IV SCH (18:57)
[2021-08-29] MEDS: PPN (CLINIMIX E 4.25/5) 2,000 ML with MULTIVITAMIN 10 ML, TRACE ELEMENTS 1 ML IV SCH ×3 (18:58)
[2021-08-29] MEDS: TEMAZEPAM 15 MG CAPSULE PO PRN (22:21)
[2021-08-30] MEDS: SODIUM CHLORIDE FLUSH 0.9% 10 ML SYRINGE IVP SCH ×3 (00:49→16:49)
[2021-08-30] MEDS: ACETAMINOPHEN 325 MG TABLET PO PRN (00:49)
[2021-08-30] MEDS: LACTATED RINGERS 1,000 ML IV SCH (01:53)
[2021-08-30 05:25] LABS: BASOPHILS % (AUTO) 0.1 %; EOSINOPHILS # (AUTO) 0.1 10^3/uL (0.0-0.7); EOSINOPHILS % (AUTO) 0.5 %; HCT - HEMATOCRIT 32.2 % (42.0-52.0); HGB - HEMOGLOBIN 10.1 g/dL (14.0-18.0); LYMPHOCYTES # (AUTO) 0.8 10^3/uL (1.5-3.5); LYMPHOCYTES % (AUTO) 5.7 %; MEAN CORPUSCULAR HEMOGLOBIN 27.2 pg (27.0-31.0); MEAN CORPUSCULAR HGB CONC 31.4 g/dL (32.0-36.0); MEAN CORPUSCULAR VOLUME 86.8 fL (80.0-94.0); MEAN PLATELET VOLUME 9.7 fL (7.4-11.4); MONOCYTES # (AUTO) 0.5 10^3/uL (0.0-1.0); MONOCYTES % (AUTO) 3.9 %; NEUTROPHILS # (AUTO) 12.4 10^3/uL (1.5-6.6); NEUTROPHILS % (AUTO) 89.2 %; PLT - PLATELET COUNT 324 10^3/uL (130-450); RED BLOOD COUNT 3.71 10^6/uL (4.70-6.10); RED CELL DISTRIBUTION WIDTH 16.5 % (12.0-15.0); WHITE BLOOD COUNT 13.9 x10^3/uL (4.8-10.8)
[2021-08-30 05:43] LABS: ALBUMIN 2.2 g/dL (3.2-5.5); ALBUMIN/GLOBULIN RATIO 0.6 (1.0-2.2); BILIRUBIN,DIRECT 0.5 mg/dL (0.1-0.5); BILIRUBIN,TOTAL 1.2 mg/dL (0.2-1.0); CALCIUM 7.8 mg/dL (8.5-10.3); CREATININE 0.8 mg/dL (0.6-1.2); MAGNESIUM 2.1 mg/dL (1.7-2.8); PHOSPHORUS 2.3 mg/dL (2.5-4.6); POTASSIUM 3.2 mmol/L (3.5-5.0)
--- NOTE | 2021-08-30 07:46 | PROVIDER PROGRESS NOTE ---
Subjective - Prog Note Date Prog Note Date: 08/30/21 - Subjective Subjective: He reports only mild pain at this time. No nausea has not had any p.o. intake. He states he been urinating a lot and has developed diarrhea again where he is going nearly every hour. Current Medications - Current Medications Current Medications: Active Medications Acetaminophen (Acetaminophen 325 Mg Tablet) 650 mg PO Q4HR PRN PRN Reason: Pain or Fever > 38C (100.4F) Last Admin: 08/30/21 00:49 Dose: 650 mg Albuterol (Albuterol Neb 2.5 Mg/3 Ml) 2.5 mg INH RTQ4H PRN PRN Reason: Wheezing Last Admin: 08/23/21 08:56 Dose: 2.5 mg Enoxaparin Sodium (Enoxaparin 40 Mg/0.4 Ml Syringe) 40 mg SUBQ DAILY JAROD Last Admin: 08/29/21 08:31 Dose: 40 mg Guaifenesin (Guaifenesin 600 Mg Tablet) 600 mg PO BID JAROD Last Admin: 08/29/21 21:57 Dose: Not Given Fluconazole (Diflucan 200 Mg/100 Ml) 100 mls @ 100 mls/hr IV DAILY JAROD Multivitamins 10 ml/ TRACE ELEMENTS 1 ml/ Amino Acids/Electrolytes/Dextrose 2,011 mls @ 83 mls/hr IV 1900 JAROD; Protocol Last Admin: 08/29/21 18:58 Dose: 83 mls/hr Fat Emulsion Intravenous (Intralipid 20%) 250 mls @ 21 mls/hr IV 1900 JAROD Last Infusion: 08/30/21 07:35 Dose: Infused Potassium Chloride (Potassium Chloride) 10 meq in 100 mls @ 100 mls/hr IV Q1H S Stop: 08/30/21 10:59 Ondansetron HCl (Ondansetron 4 Mg/2 Ml Vial) 4 mg IVP Q6HR PRN PRN Reason: Nausea / Vomiting Last Admin: 08/26/21 02:33 Dose: 4 mg Oxycodone HCl (Oxycodone 5 Mg Tablet) 5 mg PO Q4HR PRN PRN Reason: PAIN Last Admin: 08/29/21 03:04 Dose: 5 mg Pantoprazole Sodium (Pantoprazole 40 Mg Vial) 40 mg IVP BID [facility] Last Admin: 08/29/21 21:57 Dose: 40 mg Prochlorperazine Edisylate (Prochlorperazine 10 Mg/2 Ml Vial) 10 mg IVP Q6HR PRN PRN Reason: Nausea / Vomiting Last Admin: 08/26/21 14:26 Dose: 10 mg Saccharomyces Boulardii (Saccharomyces Boulardii 250 Mg Capsule) 250 mg PO BIDWM [facility] Last Admin: 08/29/21 17:09 Dose: Not Given Sodium Chloride (Sodium Chloride Flush 0.9% 10 Ml Syringe) 10 ml IVP PRN PRN PRN Reason: NEEDED PER PROVIDER ORDERS Last Admin: 08/29/21 14:35 Dose: 10 ml Sodium Chloride (Sodium Chloride Flush 0.9% 10 Ml Syringe) 10 ml IVP 0100,0900,1700 [facility] Last Admin: 08/30/21 00:49 Dose: 10 ml Temazepam (Temazepam 15 Mg Capsule) 15 mg PO QPM PRN PRN Reason: Insomnia Last Admin: 08/29/21 22:21 Dose: 15 mg No Known Home Medications 08/20/21 Objective - Vital Signs/Intake & Output Reviewed Vital Signs: Yes Vital Signs: Vital Signs x48h Temp Pulse Pulse Resp BP BP Pulse Ox 08/30/21 04:34 36.7 C 77 16 142/71 H 98 08/30/21 00:08 36.6 C 87 16 137/69 H 93 Intake & Output: Intake & Output 08/27/21 08/28/21 08/29/21 08/30/21 23:59 23:59 23:59 23:59 Intake Total 200 2387.000 3264.583 1350 Output Total 1425 Balance 200 2387.000 3264.583 -75 - Objective General Appearance: positive: No acute distress, Alert Eyes Bilateral: positive: Normal inspection, Conjunctivae nml ENT: positive: ENT inspection nml Neck: positive: Nml inspection Respiratory: positive: No respiratory distress. negative: Wheezes, Rales Cardiovascular: positive: Regular rate & rhythm Abdomen: positive: Non-tender, No distention, Abnml bowel sounds. negative: Tenderness Skin: positive: Warm, Dry Extremities: positive: No pedal edema - Lab Results Fish Bones: 08/30/21 05:00 08/30/21 05:00 Other Labs: Lab Results x24hrs 08/30/21 08/30/21 08/29/21 Range/Units 05:00 05:00 07:41 WBC 13.9 H (4.8-10.8) x10^3/uL RBC 3.71 L (4.70-6.10) 10^6/uL Hgb 10.1 L (14.0-18.0) g/dL Hct 32.2 L (42.0-52.0) % MCV 86.8 (80.0-94.0) fL MCH 27.2 (27.0-31.0) pg MCHC 31.4 L (32.0-36.0) g/dL RDW 16.5 H (12.0-15.0) % Plt Count 324 (130-450) 10^3/uL MPV 9.7 (7.4-11.4) fL Neut # (Auto) 12.4 H (1.5-6.6) 10^3/uL Lymph # (Auto) 0.8 L (1.5-3.5) 10^3/uL [place] # (Auto) 0.5 (0.0-1.0) 10^3/uL Eos # (Auto) 0.1 (0.0-0.7) 10^3/uL Baso # (Auto) 0.0 (0.0-0.1) 10^3/uL Absolute Nucleated RBC 0.00 x10^3/uL Nucleated RBC % 0.0 /100WBC Sodium 141 139 (135-145) mmol/L Potassium 3.2 L 3.3 L (3.5-5.0) mmol/L Chloride 107 104 (101-111) mmol/L Carbon Dioxide 25 25 (21-32) mmol/L Anion Gap 9.0 10.0 (6-13) BUN 11 13 (6-20) mg/dL Creatinine 0.8 0.9 (0.6-1.2) mg/dL Estimated GFR (MDRD) 97 84 L (>89) Glucose 127 H 97 (70-100) mg/dL Calcium 7.8 L 7.6 L (8.5-10.3) mg/dL Phosphorus 2.3 L (2.5-4.6) mg/dL Magnesium 2.1 (1.7-2.8) mg/dL Total Bilirubin 1.2 H (0.2-1.0) mg/dL Direct Bilirubin 0.5 (0.1-0.5) mg/dL AST 59 H (10-42) IU/L ALT 68 H (10-60) IU/L Alkaline Phosphatase 97 (42-121) IU/L Total Protein 6.0 L (6.7-8.2) g/dL Albumin 2.2 L (3.2-5.5) g/dL Globulin 3.8 (2.1-4.2) g/dL Albumin/Globulin Ratio 0.6 L (1.0-2.2) Prealbumin 7 L (18-45) mg/dL Triglycerides 133 ( - 149) mg/dL 08/29/21 Range/Units 07:41 WBC 15.0 H (4.8-10.8) x10^3/uL RBC 4.00 L (4.70-6.10) 10^6/uL Hgb 11.1 L (14.0-18.0) g/dL Hct 35.3 L (42.0-52.0) % MCV 88.3 (80.0-94.0) fL MCH 27.8 (27.0-31.0) pg MCHC 31.4 L (32.0-36.0) g/dL RDW 16.5 H (12.0-15.0) % Plt Count 325 (130-450) 10^3/uL MPV 9.1 (7.4-11.4) fL Neut # (Auto) 13.4 H (1.5-6.6) 10^3/uL Lymph # (Auto) 0.9 L (1.5-3.5) 10^3/uL [place] # (Auto) 0.5 (0.0-1.0) 10^3/uL Eos # (Auto) 0.1 (0.0-0.7) 10^3/uL Baso # (Auto) 0.0 (0.0-0.1) 10^3/uL Absolute Nucleated RBC 0.00 x10^3/uL Nucleated RBC % 0.0 /100WBC Sodium (135-145) mmol/L Potassium (3.5-5.0) mmol/L Chloride (101-111) mmol/L Carbon Dioxide (21-32) mmol/L Anion Gap (6-13) BUN (6-20) mg/dL Creatinine (0.6-1.2) mg/dL Estimated GFR (MDRD) (>89) Glucose (70-100) mg/dL Calcium (8.5-10.3) mg/dL Phosphorus (2.5-4.6) mg/dL Magnesium (1.7-2.8) mg/dL Total Bilirubin (0.2-1.0) mg/dL Direct Bilirubin (0.1-0.5) mg/dL AST (10-42) IU/L ALT (10-60) IU/L Alkaline Phosphatase (42-121) IU/L Total Protein (6.7-8.2) g/dL Albumin (3.2-5.5) g/dL Globulin (2.1-4.2) g/dL Albumin/Globulin Ratio (1.0-2.2) Prealbumin (18-45) mg/dL Triglycerides ( - 149) mg/dL Assessment/Plan - Problem List (1) Intractable nausea and vomiting Impression: This is likely secondary to the duodenitis/esophagitis/pancreatitis. EGD yesterday revealed duodenitis and esophagitis which was concerning for Karyn. Given these findings and the fact that CT continue to show ongoing peripancreatic edema, our plan would keep him n.p.o. for next 24 to 48 hours and we have started PPN for nutrition. I will look to hopefully start clear liquid diet over the next day or 2 and advance as tolerated. We will keep him on fluconazole for suspected Karyn esophagitis. Twice daily PPI. (2) Esophagitis Impression: This was evident on EGD and concern was potential Karyn. He does not have any known risk factors for Karyn such as HIV, malignancy, or inhaled corticosteroid. We will treat him empirically with fluconazole until we await bi opsy. Continue with twice daily PPI. N.p.o. as mentioned above. (3) Duodenitis Impression: I suspect this may be related to the pancreatitis but there was evidence of duodenitis on the EGD. He is now on twice daily PPI. We made him n.p.o. due to intractable nausea/vomiting as mentioned above. (4) Acute pancreatitis Impression: The cause of this is not clear but I suspect it may have been biliary. He currently has no abdominal pain. Repeat CT 2 days ago showed ongoing peripancreatic edema with pseudocyst formation. This may be contributing to his ongoing nausea/vomiting but suspect it is more likely due to the esophagitis/duodenitis. Qualifiers: Pancreatitis type: idiopathic Acute pancreatitis complication: no infection or necrosis Qualified Code(s): K85.00 - Idiopathic acute pancreatitis without necrosis or infection (5) Diarrhea Impression: He is having diarrhea again and although we check for C. difficile a couple days ago which was negative, I will recheck once again because he had been on multiple antibiotics and he has had significant increase in the frequency. At this is negative then we will trial Imodium. (6) Leukocytosis Impression: This is improving on a daily basis and is reactive due to the nausea/vomiting. There has been no evidence of infection. (7) Hypokalemia Impression: This is secondary to GI losses and poor absorption as EGD showed evidence of undigested pills. Continue with IV replacement.
[2021-08-30] MEDS: guaiFENesin 600 MG TABLET PO SCH ×2 (08:36→22:05)
[2021-08-30] MEDS: SACCHAROMYCES BOULARDII 250 MG CAPSULE PO SCH ×2 (08:36→16:48)
[2021-08-30] MEDS: FLUCONAZOLE 200 MG/100 ML 100 ML IV SCH (08:37)
[2021-08-30] MEDS: PANTOPRAZOLE 40 MG VIAL IVP SCH ×2 (08:40→22:06)
[2021-08-30] MEDS: ENOXAPARIN 40 MG/0.4 ML SYRINGE SUBQ SCH (08:43)
[2021-08-30] MEDS: POTASSIUM CHLOR 10 MEQ/100 ML 10 MEQ/100 ML BAG IV SCH ×4 (09:54→14:22)
[2021-08-30] MEDS: PPN (CLINIMIX E 4.25/5) 2,000 ML with MULTIVITAMIN 10 ML, TRACE ELEMENTS 1 ML IV SCH ×3 (19:35)
[2021-08-30] MEDS: FAT EMULSION 20% 250 ML IV SCH (19:35)
[2021-08-30] MEDS: LOPERAMIDE 2 MG CAPSULE PO PRN (19:47)
[2021-08-30] MEDS: TEMAZEPAM 15 MG CAPSULE PO PRN (22:05)
[2021-08-31] MEDS: ACETAMINOPHEN 325 MG TABLET PO PRN ×4 (01:13→19:26)
[2021-08-31] MEDS: SODIUM CHLORIDE FLUSH 0.9% 10 ML SYRINGE IVP SCH ×4 (01:14→23:41)
[2021-08-31 05:20] LABS: BASOPHILS % (AUTO) 0.2 %; EOSINOPHILS # (AUTO) 0.1 10^3/uL (0.0-0.7); EOSINOPHILS % (AUTO) 0.7 %; HCT - HEMATOCRIT 34.1 % (42.0-52.0); HGB - HEMOGLOBIN 10.7 g/dL (14.0-18.0); LYMPHOCYTES # (AUTO) 0.8 10^3/uL (1.5-3.5); LYMPHOCYTES % (AUTO) 5.9 %; MEAN CORPUSCULAR HEMOGLOBIN 27.5 pg (27.0-31.0); MEAN CORPUSCULAR HGB CONC 31.4 g/dL (32.0-36.0); MEAN CORPUSCULAR VOLUME 87.7 fL (80.0-94.0); MEAN PLATELET VOLUME 9.5 fL (7.4-11.4); MONOCYTES # (AUTO) 0.5 10^3/uL (0.0-1.0); MONOCYTES % (AUTO) 3.6 %; NEUTROPHILS # (AUTO) 11.3 10^3/uL (1.5-6.6); PLT - PLATELET COUNT 377 10^3/uL (130-450); RED BLOOD COUNT 3.89 10^6/uL (4.70-6.10); RED CELL DISTRIBUTION WIDTH 16.7 % (12.0-15.0); WHITE BLOOD COUNT 12.7 x10^3/uL (4.8-10.8)
[2021-08-31 05:28] LABS: CREATININE 0.9 mg/dL (0.6-1.2); POTASSIUM 3.3 mmol/L (3.5-5.0)
--- NOTE | 2021-08-31 07:29 | PROVIDER PROGRESS NOTE ---
Subjective - Prog Note Date Prog Note Date: 08/31/21 - Subjective Subjective: He has no abdominal pain. He took some pills this morning but did have vomiting with that. He believes it is because he took the pills a little too quickly. He is eager on trying some clears today. Diarrhea is significantly improved with the Imodium. Current Medications - Current Medications Current Medications: Active Medications Acetaminophen (Acetaminophen 325 Mg Tablet) 650 mg PO Q4HR PRN PRN Reason: Pain or Fever > 38C (100.4F) Last Admin: 08/31/21 01:13 Dose: 650 mg Albuterol (Albuterol Neb 2.5 Mg/3 Ml) 2.5 mg INH RTQ4H PRN PRN Reason: Wheezing Last Admin: 08/23/21 08:56 Dose: 2.5 mg Enoxaparin Sodium (Enoxaparin 40 Mg/0.4 Ml Syringe) 40 mg SUBQ DAILY JAROD Last Admin: 08/30/21 08:43 Dose: 40 mg Guaifenesin (Guaifenesin 600 Mg Tablet) 600 mg PO BID JAROD Last Admin: 08/30/21 22:05 Dose: Not Given Fluconazole (Diflucan 200 Mg/100 Ml) 100 mls @ 100 mls/hr IV DAILY JAROD Last Admin: 08/31/21 08:22 Dose: 100 mls/hr Multivitamins 10 ml/ TRACE ELEMENTS 1 ml/ Amino Acids/Electrolytes/Dextrose 2,011 mls @ 83 mls/hr IV 1900 JAROD; Protocol Last Admin: 08/30/21 19:35 Dose: 83 mls/hr Fat Emulsion Intravenous (Intralipid 20%) 250 mls @ 21 mls/hr IV 1900 JAROD Last Infusion: 08/31/21 07:06 Dose: Infused Potassium Chloride (Potassium Chloride) 10 meq in 100 mls @ 100 mls/hr IV Q1H JAROD Stop: 08/31/21 11:59 Loperamide HCl (Loperamide 2 Mg Capsule) 2 mg PO QID PRN PRN Reason: Diarrhea Last Admin: 08/30/21 19:47 Dose: 2 mg Ondansetron HCl (Ondansetron 4 Mg/2 Ml Vial) 4 mg IVP Q6HR PRN PRN Reason: Nausea / Vomiting Last Admin: 08/26/21 02:33 Dose: 4 mg Oxycodone HCl (Oxycodone 5 Mg Tablet) 5 mg PO Q4HR PRN PRN Reason: PAIN Last Admin: 08/29/21 03:04 Dose: 5 mg Pantoprazole Sodium (Pantoprazole 40 Mg Vial) 40 mg IVP BID [facility] Last Admin: 08/30/21 22:06 Dose: 40 mg Prochlorperazine Edisylate (Prochlorperazine 10 Mg/2 Ml Vial) 10 mg IVP Q6HR PRN PRN Reason: Nausea / Vomiting Last Admin: 08/26/21 14:26 Dose: 10 mg Saccharomyces Boulardii (Saccharomyces Boulardii 250 Mg Capsule) 250 mg PO BIDWM [facility] Last Admin: 08/30/21 16:48 Dose: 250 mg Sodium Chloride (Sodium Chloride Flush 0.9% 10 Ml Syringe) 10 ml IVP PRN PRN PRN Reason: NEEDED PER PROVIDER ORDERS Last Admin: 08/29/21 14:35 Dose: 10 ml Sodium Chloride (Sodium Chloride Flush 0.9% 10 Ml Syringe) 10 ml IVP 0100,0900,1700 [facility] Last Admin: 08/31/21 08:21 Dose: 10 ml Temazepam (Temazepam 15 Mg Capsule) 15 mg PO QPM PRN PRN Reason: Insomnia Last Admin: 08/30/21 22:05 Dose: 15 mg No Known Home Medications 08/20/21 Objective - Vital Signs/Intake & Output Reviewed Vital Signs: Yes Vital Signs: Vital Signs x48h Temp Pulse Resp BP BP Pulse Ox 08/31/21 05:00 36.9 C 84 18 126/72 94 08/30/21 23:50 37.1 C 71 18 150/72 H 95 Intake & Output: Intake & Output 08/28/21 08/29/21 08/30/21 08/31/21 23:59 23:59 23:59 23:59 Intake Total 2387.000 3264.583 4711 240 Output Total 3225 Balance 2387.000 3264.583 1486 240 - Objective General Appearance: positive: No acute distress, Alert Eyes Bilateral: positive: Normal inspection, Conjunctivae nml ENT: positive: ENT inspection nml Neck: positive: Nml inspection Respiratory: positive: No respiratory distress. negative: Wheezes, Rales Cardiovascular: positive: Regular rate & rhythm, No murmur. negative: Tachycardia Abdomen: positive: Non-tender, No distention. negative: Tenderness - Lab Results Fish Bones: 08/31/21 04:49 08/31/21 04:49 Other Labs: Lab Results x24hrs 08/31/21 08/31/21 08/30/21 Range/Units 04:49 04:49 16:58 WBC 12.7 H (4.8-10.8) x10^3/uL RBC 3.89 L (4.70-6.10) 10^6/uL Hgb 10.7 L (14.0-18.0) g/dL Hct 34.1 L (42.0-52.0) % MCV 87.7 (80.0-94.0) fL MCH 27.5 (27.0-31.0) pg MCHC 31.4 L (32.0-36.0) g/dL RDW 16.7 H (12.0-15.0) % Plt Count 377 (130-450) 10^3/uL MPV 9.5 (7.4-11.4) fL Neut # (Auto) 11.3 H (1.5-6.6) 10^3/uL Lymph # (Auto) 0.8 L (1.5-3.5) 10^3/uL [place] # (Auto) 0.5 (0.0-1.0) 10^3/uL Eos # (Auto) 0.1 (0.0-0.7) 10^3/uL Baso # (Auto) 0.0 (0.0-0.1) 10^3/uL Absolute Nucleated RBC 0.00 x10^3/uL Nucleated RBC % 0.0 /100WBC Sodium 137 (135-145) mmol/L Potassium 3.3 L (3.5-5.0) mmol/L Chloride 106 (101-111) mmol/L Carbon Dioxide 25 (21-32) mmol/L Anion Gap 6.0 (6-13) BUN 9 (6-20) mg/dL Creatinine 0.9 (0.6-1.2) mg/dL Estimated GFR (MDRD) 84 L (>89) Glucose 125 H (70-100) mg/dL Calcium 8.0 L (8.5-10.3) mg/dL Stl C. diff Tox B Gene NEGATIVE (NEGATIVE) Assessment/Plan - Problem List (1) Intractable nausea and vomiting Impression: This likely secondary to the duodenitis, esophagitis, pancreatitis. Concerns for Karyn esophagitis and biopsies are pending. Most recent CT continues to show peripancreatic edema. He has now been n.p.o. for around 48 hours and feels well. We will trial him on a clear liquid diet to see if he can tolerate this. We will continue him on PPN until we can ensure he can take p.o. consistently. If he can tolerate a clear liquid diet and TPN will be discontinued tomorrow and we will advance the diet as tolerated. Continue with empiric treatment with IV fluconazole. Twice daily PPI. Zofran as needed for nausea. (2) Esophagitis Impression: This was evident on the EGD and concern for potential Karyn although he has no known risk factors. He is on empiric treatment with fluconazole as we await biopsy results. Continue twice daily PPI. (3) Duodenitis Impression: I suspect this may be related to the pancreatitis but there was evidence of duodenitis on the EGD. He is now on twice daily PPI. We will trial him on a clear liquid diet today. (4) Acute pancreatitis Impression: It was felt initially this may have been due to biliary sludge. Currently has no abdominal pain although repeat CT done 3 days ago showed ongoing peripancreatic edema and pseudocyst. Start him on a clear liquid diet as tolerated. Qualifiers: Pancreatitis type: idiopathic Acute pancreatitis complication: no infection or necrosis Qualified Code(s): K85.00 - Idiopathic acute pancreatitis without necrosis or infection (5) Diarrhea Impression: C. difficile is negative. We will use Imodium as needed. (6) Leukocytosis Impression: This is improving on a daily basis and is reactive due to the nausea/vomiting. There has been no evidence of infection. (7) Hypokalemia Impression: This is secondary to GI losses and we will continue with IV supplementation. If he can tolerate p.o. intake today then we will switch to oral supplementation.
[2021-08-31] MEDS ORDERED: SODIUM CHLORIDE 0.9% 1,000 ML IV ONE (08:19)
[2021-08-31] MEDS: FLUCONAZOLE 200 MG/100 ML 100 ML IV SCH (08:22)
[2021-08-31] MEDS: POTASSIUM CHLOR 10 MEQ/100 ML 10 MEQ/100 ML BAG IV SCH ×4 (10:05→13:21)
[2021-08-31] MEDS: PANTOPRAZOLE 40 MG VIAL IVP SCH ×2 (10:05→21:32)
[2021-08-31] MEDS: SACCHAROMYCES BOULARDII 250 MG CAPSULE PO SCH (10:08)
[2021-08-31] MEDS: LOPERAMIDE 2 MG CAPSULE PO PRN (10:08)
[2021-08-31] MEDS: guaiFENesin 600 MG TABLET PO SCH (10:09)
[2021-08-31] MEDS: ENOXAPARIN 40 MG/0.4 ML SYRINGE SUBQ SCH (10:09)
[2021-08-31] MEDS: FAT EMULSION 20% 250 ML IV SCH (19:13)
[2021-08-31] MEDS: PPN (CLINIMIX E 4.25/5) 2,000 ML with MULTIVITAMIN 10 ML, TRACE ELEMENTS 1 ML IV SCH ×3 (19:13)
[2021-08-31] MEDS: SODIUM CHLORIDE FLUSH 0.9% 10 ML SYRINGE IVP PRN (21:32)
[2021-09-01] MEDS: ACETAMINOPHEN 325 MG TABLET PO PRN ×4 (01:17→18:59)
[2021-09-01 05:45] LABS: BASOPHILS % (AUTO) 0.3 %; EOSINOPHILS # (AUTO) 0.1 10^3/uL (0.0-0.7); EOSINOPHILS % (AUTO) 1.1 %; HCT - HEMATOCRIT 32.4 % (42.0-52.0); HGB - HEMOGLOBIN 10.3 g/dL (14.0-18.0); LYMPHOCYTES # (AUTO) 0.7 10^3/uL (1.5-3.5); LYMPHOCYTES % (AUTO) 6.4 %; MEAN CORPUSCULAR HEMOGLOBIN 27.5 pg (27.0-31.0); MEAN CORPUSCULAR HGB CONC 31.8 g/dL (32.0-36.0); MEAN CORPUSCULAR VOLUME 86.6 fL (80.0-94.0); MONOCYTES # (AUTO) 0.5 10^3/uL (0.0-1.0); MONOCYTES % (AUTO) 4.5 %; NEUTROPHILS # (AUTO) 9.2 10^3/uL (1.5-6.6); NEUTROPHILS % (AUTO) 87.1 %; PLT - PLATELET COUNT 390 10^3/uL (130-450); RED BLOOD COUNT 3.74 10^6/uL (4.70-6.10); RED CELL DISTRIBUTION WIDTH 16.6 % (12.0-15.0); WHITE BLOOD COUNT 10.6 x10^3/uL (4.8-10.8)
[2021-09-01 05:56] LABS: ALBUMIN 2.3 g/dL (3.2-5.5); ALBUMIN/GLOBULIN RATIO 0.6 (1.0-2.2); BILIRUBIN,TOTAL 0.8 mg/dL (0.2-1.0); CREATININE 0.8 mg/dL (0.6-1.2); MAGNESIUM 2.4 mg/dL (1.7-2.8); PHOSPHORUS 2.6 mg/dL (2.5-4.6); POTASSIUM 3.5 mmol/L (3.5-5.0)
[2021-09-01] MEDS: ONDANSETRON 4 MG/2 ML VIAL IVP PRN ×2 (06:57→12:58)
--- NOTE | 2021-09-01 07:30 | PROVIDER PROGRESS NOTE ---
Subjective - Prog Note Date Prog Note Date: 09/01/21 - Subjective Subjective: He states he has a very small amount of emesis this morning and yesterday with dinner. He continues to complain of no pain. He is eager to continue to trial p.o. liquids in hopes of advancing his diet. Diarrhea has resolved. Current Medications - Current Medications Current Medications: Active Medications Acetaminophen (Acetaminophen 325 Mg Tablet) 650 mg PO Q4HR PRN PRN Reason: Pain or Fever > 38C (100.4F) Last Admin: 09/01/21 06:07 Dose: 650 mg Albuterol (Albuterol Neb 2.5 Mg/3 Ml) 2.5 mg INH RTQ4H PRN PRN Reason: Wheezing Last Admin: 08/23/21 08:56 Dose: 2.5 mg Enoxaparin Sodium (Enoxaparin 40 Mg/0.4 Ml Syringe) 40 mg SUBQ DAILY [facility] Last Admin: 08/31/21 10:09 Dose: 40 mg Fluconazole (Diflucan 200 Mg/100 Ml) 100 mls @ 100 mls/hr IV DAILY [facility] Last Infusion: 08/31/21 11:03 Dose: Infused Multivitamins 10 ml/ TRACE ELEMENTS 1 ml/ Amino Acids/Electrolytes/Dextrose 2,011 mls @ 83 mls/hr IV 1900 JAROD; Protocol Last Admin: 08/31/21 19:13 Dose: 83 mls/hr Fat Emulsion Intravenous (Intralipid 20%) 250 mls @ 21 mls/hr IV 1900 JAROD Last Infusion: 09/01/21 07:20 Dose: Infused Loperamide HCl (Loperamide 2 Mg Capsule) 2 mg PO QID PRN PRN Reason: Diarrhea Last Admin: 08/31/21 10:08 Dose: 2 mg Ondansetron HCl (Ondansetron 4 Mg/2 Ml Vial) 4 mg IVP Q6HR PRN PRN Reason: Nausea / Vomiting Last Admin: 09/01/21 06:57 Dose: 4 mg Oxycodone HCl (Oxycodone 5 Mg Tablet) 5 mg PO Q4HR PRN PRN Reason: PAIN Last Admin: 08/29/21 03:04 Dose: 5 mg Pantoprazole Sodium (Pantoprazole 40 Mg Vial) 40 mg IVP BID [facility] Last Admin: 08/31/21 21:32 Dose: 40 mg Prochlorperazine Edisylate (Prochlorperazine 10 Mg/2 Ml Vial) 10 mg IVP Q6HR PRN PRN Reason: Nausea / Vomiting Last Admin: 08/26/21 14:26 Dose: 10 mg Sodium Chloride (Sodium Chloride Flush 0.9% 10 Ml Syringe) 10 ml IVP PRN PRN PRN Reason: NEEDED PER PROVIDER ORDERS Last Admin: 08/31/21 21:32 Dose: 20 ml Sodium Chloride (Sodium Chloride Flush 0.9% 10 Ml Syringe) 10 ml IVP 0100,0900,1700 [facility]AR[facility] Last Admin: 08/31/21 23:41 Dose: 10 ml Temazepam (Temazepam 15 Mg Capsule) 15 mg PO QPM PRN PRN Reason: Insomnia Last Admin: 08/30/21 22:05 Dose: 15 mg No Known Home Medications 08/20/21 Objective - Vital Signs/Intake & Output Reviewed Vital Signs: Yes Vital Signs: Vital Signs x48h Temp Pulse Pulse Resp BP BP Pulse Ox 09/01/21 05:18 36.4 C L 75 18 129/71 94 09/01/21 01:00 37.0 C 74 18 115/61 94 Intake & Output: Intake & Output 08/29/21 08/30/21 08/31/21 09/01/21 23:59 23:59 23:59 23:59 Intake Total 3264.583 4711 3526.567 350 Output Total 3225 2700 1000 Balance 3264.583 1486 826.567 -650 - Objective General Appearance: positive: No acute distress, Alert Eyes Bilateral: positive: Normal inspection, Conjunctivae nml ENT: positive: ENT inspection nml Neck: positive: Nml inspection Respiratory: positive: No respiratory distress, Breath sounds nml. negative: Wheezes, Rales Cardiovascular: positive: No murmur. negative: Tachycardia Abdomen: positive: Non-tender, No distention. negative: Tenderness Skin: positive: Warm, Dry Extremities: positive: No pedal edema - Lab Results Fish Bones: 09/01/21 04:45 09/01/21 04:45 Other Labs: Lab Results x24hrs 09/01/21 09/01/21 Range/Units 04:45 04:45 WBC 10.6 (4.8-10.8) x10^3/uL RBC 3.74 L (4.70-6.10) 10^6/uL Hgb 10.3 L (14.0-18.0) g/dL Hct 32.4 L (42.0-52.0) % MCV 86.6 (80.0-94.0) fL MCH 27.5 (27.0-31.0) pg MCHC 31.8 L (32.0-36.0) g/dL RDW 16.6 H (12.0-15.0) % Plt Count 390 (130-450) 10^3/uL MPV 10.0 (7.4-11.4) fL Neut # (Auto) 9.2 H (1.5-6.6) 10^3/uL Lymph # (Auto) 0.7 L (1.5-3.5) 10^3/uL [place] # (Auto) 0.5 (0.0-1.0) 10^3/uL Eos # (Auto) 0.1 (0.0-0.7) 10^3/uL Baso # (Auto) 0.0 (0.0-0.1) 10^3/uL Absolute Nucleated RBC 0.00 x10^3/uL Nucleated RBC % 0.0 /100WBC Sodium 136 (135-145) mmol/L Potassium 3.5 (3.5-5.0) mmol/L Chloride 106 (101-111) mmol/L Carbon Dioxide 24 (21-32) mmol/L Anion Gap 6.0 (6-13) BUN 10 (6-20) mg/dL Creatinine 0.8 (0.6-1.2) mg/dL Estimated GFR (MDRD) 97 (>89) Glucose 122 H (70-100) mg/dL Calcium 8.0 L (8.5-10.3) mg/dL Phosphorus 2.6 (2.5-4.6) mg/dL Magnesium 2.4 (1.7-2.8) mg/dL Total Bilirubin 0.8 (0.2-1.0) mg/dL AST 47 H (10-42) IU/L ALT 54 (10-60) IU/L Alkaline Phosphatase 124 H (42-121) IU/L Total Protein 6.0 L (6.7-8.2) g/dL Albumin 2.3 L (3.2-5.5) g/dL Globulin 3.7 (2.1-4.2) g/dL Albumin/Globulin Ratio 0.6 L (1.0-2.2) Prealbumin 11 L (18-45) mg/dL Triglycerides 146 ( - 149) mg/dL Assessment/Plan - Problem List (1) Intractable nausea and vomiting Impression: It is felt secondary to duodenitis, esophagitis, and resolving pancreatitis. Concern EGD was for Karyn esophagitis as well as duodenitis. We trialed him on a clear liquid diet yesterday this morning and he had a small amount of emesis. He is still eager and trying a liquid diet so we will continue this. We will also start him on Reglan as he may have delayed gastric emptying. We will keep him on fluconazole empirically as he await biopsy results of the EGD. Continue twice daily PPI. Continue with Zofran. I discussed with him again that once he is able to take p.o. consistently then he can be discharged home. We will discontinue the PPN if he can tolerate p.o. intake. (2) Esophagitis Impression: This was evident on the EGD and concern for potential Karyn although he has no known risk factors. He is on empiric treatment with fluconazole as we await biopsy results. Continue twice daily PPI. (3) Duodenitis Impression: I suspect this may be related to the pancreatitis and there was evidence of duodenitis on the EGD. He is now on twice daily PPI. We will trial him on a clear liquid diet today. (4) Acute pancreatitis Impression: It was felt initially this may have been due to biliary sludge. Currently has no abdominal pain although repeat CT done 4 days ago showed ongoing peripancreatic edema and pseudocyst. We will continue the clear liquid diet as tolerated. Qualifiers: Pancreatitis type: idiopathic Acute pancreatitis complication: no infection or necrosis Qualified Code(s): K85.00 - Idiopathic acute pancreatitis without necrosis or infection (5) Diarrhea Impression: C. difficile is negative. We will use Imodium as needed. (6) Hypokalemia Impression: Secondary to GI losses and we will continue to supplement as needed. (7) Leukocytosis Impression: This is resolved and was likely reactive due to nausea and vomiting.
[2021-09-01] MEDS: PANTOPRAZOLE 40 MG VIAL IVP SCH ×2 (09:28→20:28)
[2021-09-01] MEDS: ENOXAPARIN 40 MG/0.4 ML SYRINGE SUBQ SCH (09:28)
[2021-09-01] MEDS: FLUCONAZOLE 200 MG/100 ML 100 ML IV SCH (09:28)
[2021-09-01] MEDS: SODIUM CHLORIDE FLUSH 0.9% 10 ML SYRINGE IVP SCH ×3 (09:28→23:50)
[2021-09-01] MEDS: SODIUM CHLORIDE FLUSH 0.9% 10 ML SYRINGE IVP PRN (12:59)
[2021-09-01] MEDS: METOCLOPRAMIDE 10 MG/2 ML VIAL IVP SCH ×2 (17:27→23:50)
[2021-09-01] MEDS: TEMAZEPAM 15 MG CAPSULE PO PRN (23:10)
[2021-09-02 05:10] LABS: BASOPHILS % (AUTO) 0.3 %; EOSINOPHILS # (AUTO) 0.1 10^3/uL (0.0-0.7); EOSINOPHILS % (AUTO) 1.3 %; HCT - HEMATOCRIT 36.1 % (42.0-52.0); HGB - HEMOGLOBIN 10.7 g/dL (14.0-18.0); LYMPHOCYTES # (AUTO) 0.9 10^3/uL (1.5-3.5); MEAN CORPUSCULAR HEMOGLOBIN 26.8 pg (27.0-31.0); MEAN CORPUSCULAR HGB CONC 29.6 g/dL (32.0-36.0); MEAN CORPUSCULAR VOLUME 90.5 fL (80.0-94.0); MONOCYTES # (AUTO) 0.6 10^3/uL (0.0-1.0); MONOCYTES % (AUTO) 5.7 %; NEUTROPHILS # (AUTO) 8.4 10^3/uL (1.5-6.6); NEUTROPHILS % (AUTO) 83.3 %; PLT - PLATELET COUNT 465 10^3/uL (130-450); RED BLOOD COUNT 3.99 10^6/uL (4.70-6.10); RED CELL DISTRIBUTION WIDTH 16.8 % (12.0-15.0); WHITE BLOOD COUNT 10.1 x10^3/uL (4.8-10.8)
[2021-09-02] MEDS: METOCLOPRAMIDE 10 MG/2 ML VIAL IVP SCH ×4 (05:22→23:48)
[2021-09-02 05:23] LABS: CALCIUM 8.2 mg/dL (8.5-10.3); CREATININE 0.9 mg/dL (0.6-1.2); POTASSIUM 3.7 mmol/L (3.5-5.0)
[2021-09-02] MEDS: PANTOPRAZOLE 40 MG VIAL IVP SCH ×2 (08:23→21:50)
[2021-09-02] MEDS: FLUCONAZOLE 200 MG/100 ML 100 ML IV SCH (08:23)
[2021-09-02] MEDS: ENOXAPARIN 40 MG/0.4 ML SYRINGE SUBQ SCH (08:23)
[2021-09-02] MEDS: SODIUM CHLORIDE FLUSH 0.9% 10 ML SYRINGE IVP SCH ×3 (08:24→23:48)
[2021-09-02] MEDS: SODIUM CHLORIDE FLUSH 0.9% 10 ML SYRINGE IVP PRN (12:33)
--- NOTE | 2021-09-02 16:06 | PROVIDER PROGRESS NOTE ---
Assessment/Plan - Problem List (1) Intractable nausea and vomiting Assessment/Plan: It is felt secondary to duodenitis, esophagitis, and resolving pancreatitis. EGD showed esophagitis as well as duodenitis. He is tolerating a clear liquid diet. We have discontinued the PPN He is eager and trying a pureed diet so we will advance to this for dinner. We have started him on Reglan as he may have delayed gastric emptying. We will keep him on fluconazole empirically as he await biopsy results of the E GD. Continue twice daily PPI. Continue with Zofran prn. (2) Esophagitis Impression: This was evident on the EGD and concern for potential Karyn although he has no known risk factors. Continue on empiric treatment with fluconazole as we await biopsy results. Continue twice daily PPI. (3) Duodenitis Impression: I suspect this may be related to the pancreatitis and there was evidence of duodenitis on the EGD. He is now on twice daily PPI. We will try to advance diet (4) Hiccups Impression: These have been a problem for nearly a week, by my review, he has not been on any medicines to try to suppress this. Today he tells me that the paroxysms of hiccups can last over an hour and they make him nauseated. Will try gabapentin 100 mg p.o. 3 times daily empirically. Discussed with pharmacist. (5) Acute pancreatitis Impression: It was felt initially this may have been due to biliary sludge. Currently has no abdominal pain although repeat CT done several days ago showed ongoing peripancreatic edema and pseudocyst. We will try to advance his diet as tolerated. Qualifiers: Pancreatitis type: idiopathic Acute pancreatitis complication: no infection or necrosis Qualified Code(s): K85.00 - Idiopathic acute pancreatitis without necrosis or infection (6) Diarrhea Impression: Resolved. C. difficile was negative. (7) Hypokalemia Impression: Resolved. It was secondary to GI losses and we will continue to supplement as needed. (8) Leukocytosis Impression: This has resolved and was likely reactive due to nausea and vomiting. - Current Meds Current Meds: Current Medications Generic Name Dose Route Start Last Admin Trade Name Freq PRN Reason Stop Dose Admin Acetaminophen 650 mg 08/23/21 07:06 09/01/21 18:59 Acetaminophen 325 Mg Tablet PO 650 mg Q4HR PRN Administration Pain or Fever > 38C (100.4F) Albuterol 2.5 mg 08/23/21 08:02 08/23/21 08:56 Albuterol Neb 2.5 Mg/3 Ml INH 2.5 mg RTQ4H PRN Administration Wheezing Enoxaparin Sodium 40 mg 08/23/21 09:00 09/02/21 08:23 Enoxaparin 40 Mg/0.4 Ml Syringe SUBQ 40 mg DAILY JAROD Administration Fluconazole 100 mls @ 100 mls/hr 08/30/21 09:00 09/02/21 09:30 Diflucan 200 Mg/100 Ml IV Infused DAILY JAROD Infusion Loperamide HCl 2 mg 08/30/21 19:20 08/31/21 10:08 Loperamide 2 Mg Capsule PO 2 mg QID PRN Administration Diarrhea Metoclopramide HCl 5 mg 09/01/21 18:00 09/02/21 12:33 Metoclopramide 10 Mg/2 Ml Vial IVP 5 mg Q6HR JAROD Administration Ondansetron HCl 4 mg 08/20/21 06:02 09/01/21 12:58 Ondansetron 4 Mg/2 Ml Vial IVP 4 mg Q6HR PRN Administration Nausea / Vomiting Oxycodone HCl 5 mg 08/22/21 07:40 08/29/21 03:04 Oxycodone 5 Mg Tablet PO 5 mg Q4HR PRN Administration PAIN Pantoprazole Sodium 40 mg 08/29/21 21:00 09/02/21 08:23 Pantoprazole 40 Mg Vial IVP 40 mg BID JAROD Administration Prochlorperazine Edisylate 10 mg 08/20/21 06:02 08/26/21 14:26 Prochlorperazine 10 Mg/2 Ml Vial IVP 10 mg Q6HR PRN Administration Nausea / Vomiting Sodium Chloride 10 ml 08/20/21 06:02 09/02/21 12:33 Sodium Chloride Flush 0.9% 10 Ml Syringe IVP 10 ml PRN PRN Administration NEEDED PER PROVIDER ORDERS Sodium Chloride 10 ml 08/20/21 09:00 09/02/21 08:24 Sodium Chloride Flush 0.9% 10 Ml Syringe IVP 10 ml 0100,0900,1700 JAROD Administration Temazepam 15 mg 08/22/21 21:03 09/01/21 23:10 Temazepam 15 Mg Capsule PO 15 mg QPM PRN Administration Insomnia - Lab Result Fish Bone Diagrams: 09/02/21 04:35 09/02/21 04:35 - Additional Planning My Orders: My Active Orders 09/02/21 Dinner DIET [Dysphagia - Puree] [DIET] 09/02/21 17:00 Gabapentin [Neurontin] 100 mg PO TID Subjective - Subjective Patient Reports: Feeling Better, Nausea (When he gets incessant hiccups, his nausea flares up. Swallowing the liquids does not create nausea or abdominal pain) Objective Vital Signs: Vital Signs - 24 hr 09/01/21 09/01/21 09/01/21 16:12 20:04 23:31 Temperature 36.8 C 36.9 C 36.7 C Heart Rate [ 78 87 82 Brachial] Heart Rate [ Monitoring electrodes] Respiratory 20 20 20 Rate Blood Pressure 118/67 108/63 [Left Brachial artery] Blood Pressure 116/65 [Right Brachial artery] O2 Saturation 94 95 94 09/02/21 09/02/21 09/02/21 04:38 08:10 15:43 Temperature 37.0 C 36.6 C 36.8 C Heart Rate [ 86 77 Brachial] Heart Rate [ 77 Monitoring electrodes] Respiratory 18 18 16 Rate Blood Pressure 113/73 125/70 [Left Brachial artery] Blood Pressure 118/72 [Right Brachial artery] O2 Saturation 95 93 94 Oxygen O2 Source Room air I&O (Last 24 Hrs): Intake and Output Totals x24h 08/31/21 09/01/21 09/02/21 23:59 23:59 23:59 Intake Total 3526.567 3154 1100 Output Total 2700 2475 1400 Balance 826.567 679 -300 General: Alert, Oriented x3 HEENT: Mucous membr. moist/pink Neck: Supple, No JVD Neuro: Alert, Non Focal Cardiovascular: Regular rate, No murmurs Respiratory: No respiratory distress, Breath sounds nml Abdomen: Normal bowel sounds, Soft, No tenderness Extremities: No clubbing, No edema, No tenderness/swelling - Results Results: Laboratory Results WBC 10.1 x10^3/uL (4.8-10.8) 09/02/21 04:35 RBC 3.99 10^6/uL (4.70-6.10) L 09/02/21 04:35 Hgb 10.7 g/dL (14.0-18.0) L 09/02/21 04:35 Hct 36.1 % (42.0-52.0) L 09/02/21 04:35 MCV 90.5 fL (80.0-94.0) 09/02/21 04:35 MCH 26.8 pg (27.0-31.0) L 09/02/21 04:35 MCHC 29.6 g/dL (32.0-36.0) L 09/02/21 04:35 RDW 16.8 % (12.0-15.0) H 09/02/21 04:35 Plt Count 465 10^3/uL (130-450) H 09/02/21 04:35 MPV 10.0 fL (7.4-11.4) 09/02/21 04:35 Neut # (Auto) 8.4 10^3/uL (1.5-6.6) H 09/02/21 04:35 Lymph # (Auto) 0.9 10^3/uL (1.5-3.5) L 09/02/21 04:35 [place] # (Auto) 0.6 10^3/uL (0.0-1.0) 09/02/21 04:35 Eos # (Auto) 0.1 10^3/uL (0.0-0.7) 09/02/21 04:35 Baso # (Auto) 0.0 10^3/uL (0.0-0.1) 09/02/21 04:35 Absolute Nucleated RBC 0.00 x10^3/uL 09/02/21 04:35 Total Counted 100 08/26/21 04:59 Band Neuts % (Manual) 3 % (0-10) 08/26/21 04:59 Abnorm Lymph % (Manual) 0 % 08/26/21 04:59 Myelocytes % 1 % (-0) H 08/26/21 04:59 Nucleated RBC % 0.0 /100WBC 09/02/21 04:35 Neutrophils # (Manual) 12.0 10^3/uL (1.5-6.6) H 08/26/21 04:59 Lymphocytes # (Manual) 0.5 10^3/uL (1.5-3.5) L 08/26/21 04:59 Monocytes # (Manual) 0.5 10^3/uL (0.0-1.0) 08/26/21 04:59 Eosinophils # (Manual) 0.0 10^3/uL (0-0.7) 08/26/21 04:59 Basophils # (Manual) 0.0 10^3/uL (0-0.1) 08/26/21 04:59 Differential Comment MANUAL DIFFERENTIAL 08/26/21 04:59 WBC Morphology NORMAL APPEARANCE (NORMAL) 08/26/21 04:59 Platelet Estimate NORMAL (130-450,000) (NORMAL) 08/26/21 04:59 Platelet Morphology NORMAL APPEARANCE (NORMAL) 08/26/21 04:59 RBC Morph Micro Appear NORMAL APPEARANCE (NORMAL) 08/26/21 04:59 D-Dimer > 1050.0 ng/mL (200.0-255.0) H 08/21/21 22:44 Sodium 140 mmol/L (135-145) 09/02/21 04:35 Potassium 3.7 mmol/L (3.5-5.0) 09/02/21 04:35 Chloride 103 mmol/L (101-111) 09/02/21 04:35 Carbon Dioxide 27 mmol/L (21-32) 09/02/21 04:35 Anion Gap 10.0 (6-13) 09/02/21 04:35 BUN 10 mg/dL (6-20) 09/02/21 04:35 Creatinine 0.9 mg/dL (0.6-1.2) 09/02/21 04:35 Estimated GFR (MDRD) 84 (>89) L 09/02/21 04:35 Glucose 109 mg/dL (70-100) H 09/02/21 04:35 Lactic Acid 1.2 mmol/L (0.5-2.2) 08/22/21 05:02 Calcium 8.2 mg/dL (8.5-10.3) L 09/02/21 04:35 Phosphorus 2.6 mg/dL (2.5-4.6) 09/01/21 04:45 Magnesium 2.4 mg/dL (1.7-2.8) 09/01/21 04:45 Total Bilirubin 0.8 mg/dL (0.2-1.0) 09/01/21 04:45 Direct Bilirubin 0.5 mg/dL (0.1-0.5) 08/30/21 05:00 AST 47 IU/L (10-42) H 09/01/21 04:45 ALT 54 IU/L (10-60) 09/01/21 04:45 Alkaline Phosphatase 124 IU/L (42-121) H 09/01/21 04:45 Troponin I High Sens 3.4 ng/L (2.3-19.7) 08/20/21 02:55 Total Protein 6.0 g/dL (6.7-8.2) L 09/01/21 04:45 Albumin 2.3 g/dL (3.2-5.5) L 09/01/21 04:45 Globulin 3.7 g/dL (2.1-4.2) 09/01/21 04:45 Albumin/Globulin Ratio 0.6 (1.0-2.2) L 09/01/21 04:45 Prealbumin 11 mg/dL (18-45) L 09/01/21 04:45 Triglycerides 146 mg/dL (-149) 09/01/21 04:45 Lipase 40 U/L (22-51) 08/24/21 04:21 Nasal Adenovirus (PCR) NOT DETECTED 08/24/21 08:50 Nasal B. parapertussis DNA (PCR) NOT DETECTED 08/24/21 08:50 Nasal Coronavir 229E PCR NOT DETECTED 08/24/21 08:50 Nasal Coronavir HKU1 PCR NOT DETECTED 08/24/21 08:50 Nasal Coronavir NL63 PCR NOT DETECTED 08/24/21 08:50 Nasal Coronavir OC43 PCR NOT DETECTED 08/24/21 08:50 Nasal Enterovir/Rhinovir PCR NOT DETECTED 08/24/21 08:50 Nasal Influenza B PCR NOT DETECTED 08/24/21 08:50 Nasal Influenza A PCR NOT DETECTED 08/24/21 08:50 Nasal Parainfluen 1 PCR NOT DETECTED 08/24/21 08:50 Nasal Parainfluen 2 PCR NOT DETECTED 08/24/21 08:50 Nasal Parainfluen 3 PCR NOT DETECTED 08/24/21 08:50 Nasal Parainfluen 4 PCR NOT DETECTED 08/24/21 08:50 Nasal RSV (PCR) NOT DETECTED 08/24/21 08:50 Nasal B.pertussis DNA PCR NOT DETECTED 08/24/21 08:50 Nasal C.pneumoniae (PCR) NOT DETECTED 08/24/21 08:50 [place] Human Metapneumo PCR NOT DETECTED 08/24/21 08:50 Nasal M.pneumoniae (PCR) NOT DETECTED 08/24/21 08:50 Nasal SARS-CoV-2 (PCR) NOT DETECTED 08/24/21 08:50 Stl C. diff Tox B Gene NEGATIVE (NEGATIVE) 08/30/21 16:58 SARS-CoV-2 (PCR) NOT DETECTED 08/20/21 04:15 - Procedures Procedures: Procedures ENDOSC POLYPECTOMY OF LG INTEST (09/13/14) INJECT/INFUSE NEC (09/13/14)
[2021-09-02] MEDS: GABAPENTIN 100 MG CAPSULE PO SCH ×2 (16:34→21:49)
[2021-09-03] MEDS: METOCLOPRAMIDE 10 MG/2 ML VIAL IVP SCH ×4 (05:52→23:44)
[2021-09-03] MEDS: GABAPENTIN 100 MG CAPSULE PO SCH ×3 (05:52→21:19)
[2021-09-03] MEDS: PANTOPRAZOLE 40 MG VIAL IVP SCH ×2 (08:52→21:18)
[2021-09-03] MEDS: FLUCONAZOLE 200 MG/100 ML 100 ML IV SCH (08:52)
[2021-09-03] MEDS: SODIUM CHLORIDE FLUSH 0.9% 10 ML SYRINGE IVP SCH ×3 (08:52→23:45)
[2021-09-03] MEDS: ENOXAPARIN 40 MG/0.4 ML SYRINGE SUBQ SCH (08:55)
[2021-09-03 09:00] LABS: ALBUMIN 2.4 g/dL (3.2-5.5); ALBUMIN/GLOBULIN RATIO 0.6 (1.0-2.2); BILIRUBIN,TOTAL 0.9 mg/dL (0.2-1.0); CREATININE 0.9 mg/dL (0.6-1.2); MAGNESIUM 2.2 mg/dL (1.7-2.8); PHOSPHORUS 2.6 mg/dL (2.5-4.6); POTASSIUM 3.7 mmol/L (3.5-5.0); TOTAL PROTEIN 6.5 g/dL (6.7-8.2)
[2021-09-03 10:21] LABS: BASOPHILS % (AUTO) 0.2 %; EOSINOPHILS # (AUTO) 0.1 10^3/uL (0.0-0.7); EOSINOPHILS % (AUTO) 1.2 %; HCT - HEMATOCRIT 32.9 % (42.0-52.0); HGB - HEMOGLOBIN 10.1 g/dL (14.0-18.0); LYMPHOCYTES % (AUTO) 11.9 %; MEAN CORPUSCULAR HEMOGLOBIN 27.2 pg (27.0-31.0); MEAN CORPUSCULAR HGB CONC 30.7 g/dL (32.0-36.0); MEAN CORPUSCULAR VOLUME 88.7 fL (80.0-94.0); MEAN PLATELET VOLUME 9.7 fL (7.4-11.4); MONOCYTES # (AUTO) 0.5 10^3/uL (0.0-1.0); MONOCYTES % (AUTO) 6.2 %; NEUTROPHILS # (AUTO) 6.9 10^3/uL (1.5-6.6); NEUTROPHILS % (AUTO) 80.2 %; PLT - PLATELET COUNT 465 10^3/uL (130-450); RED BLOOD COUNT 3.71 10^6/uL (4.70-6.10); RED CELL DISTRIBUTION WIDTH 16.5 % (12.0-15.0); WHITE BLOOD COUNT 8.6 x10^3/uL (4.8-10.8)
[2021-09-03] MEDS: LIPASE/PROTEASE/AMYLASE CAPSULE PO SCH ×2 (12:09→17:28)
--- NOTE | 2021-09-03 14:40 | PROVIDER PROGRESS NOTE ---
Assessment/Plan - Problem List (1) Intractable nausea and vomiting Assessment/Plan: Improved. It was felt to be secondary to duodenitis, esophagitis, and resolving pancreatitis. EGD showed esophagitis as well as duodenitis. There was also undigested pills He is tolerating a pureed diet and clear liquids. We discontinued the PPN 2 days ago. He is eager and trying a soft diet so we will advance to this for dinner. We have started him on Reglan as he may have delayed gastric emptying. Will also add digestive enzymes, starting today We will keep him on fluconazole empirically as he await biopsy results of the EGD. Continue twice daily PPI. Continue with Zofran prn. Anticipate discharge soon, if he can tolerate soft food, low fiber and no dairy. (2) Esophagitis Impression: This was evident on the EGD and concern for potential Karyn although he has no known risk factors. Continue on empiric treatment with fluconazole as we await biopsy results. Continue twice daily PPI. (3) Duodenitis Impression: I suspect this may be related to the pancreatitis and there was evidence of duodenitis on the EGD. He is now on twice daily PPI. We will try to advance diet (4) Hiccups Impression: Improved after starting Gabapentin yesterday. These were a problem for nearly a week, and the paroxysms of hiccups made him nauseated. Will continue this present dose of gabapentin 100 mg p.o. 3 times daily empirically. Discussed with pharmacist. (5) Acute pancreatitis Impression: It was felt initially this may have been due to biliary sludge. Currently has no abdominal pain although repeat CT done several days ago showed ongoing peripancreatic edema and pseudocyst. We will try to advance his diet as tolerated. Qualifiers: Pancreatitis type: idiopathic Acute pancreatitis complication: no infection or necrosis Qualified Code(s): K85.00 - Idiopathic acute pancreatitis without necrosis or infection (6) Diarrhea Impression: Resolved. C. difficile was negative. (7) Hypokalemia Impression: Resolved. It was secondary to GI losses and we will continue to supplement as needed. (8) Leukocytosis Impression: This has resolved and was likely reactive due to nausea and vomiting. - Current Meds Current Meds: Current Medications Generic Name Dose Route Start Last Admin Trade Name Freq PRN Reason Stop Dose Admin Acetaminophen 650 mg 08/23/21 07:06 09/01/21 18:59 Acetaminophen 325 Mg Tablet PO 650 mg Q4HR PRN Administration Pain or Fever > 38C (100.4F) Lipase/Protease/Amylase 1 cap 09/03/21 12:00 09/03/21 12:09 Lipase/Protease/Amylase Capsule PO 1 cap TIDWM JAROD Administration Enoxaparin Sodium 40 mg 08/23/21 09:00 09/03/21 08:55 Enoxaparin 40 Mg/0.4 Ml Syringe SUBQ 40 mg DAILY JAROD Administration Gabapentin 100 mg 09/02/21 17:00 09/03/21 14:00 Gabapentin 100 Mg Capsule PO 100 mg TID JAROD Administration Fluconazole 100 mls @ 100 mls/hr 08/30/21 09:00 09/03/21 10:00 Diflucan 200 Mg/100 Ml IV Infused DAILY JAROD Infusion Loperamide HCl 2 mg 08/30/21 19:20 08/31/21 10:08 Loperamide 2 Mg Capsule PO 2 mg QID PRN Administration Diarrhea Metoclopramide HCl 5 mg 09/01/21 18:00 09/03/21 12:09 Metoclopramide 10 Mg/2 Ml Vial IVP 5 mg Q6HR JAROD Administration Ondansetron HCl 4 mg 08/20/21 06:02 09/01/21 12:58 Ondansetron 4 Mg/2 Ml Vial IVP 4 mg Q6HR PRN Administration Nausea / Vomiting Oxycodone HCl 5 mg 08/22/21 07:40 08/29/21 03:04 Oxycodone 5 Mg Tablet PO 5 mg Q4HR PRN Administration PAIN Pantoprazole Sodium 40 mg 08/29/21 21:00 09/03/21 08:52 Pantoprazole 40 Mg Vial IVP 40 mg BID JAROD Administration Prochlorperazine Edisylate 10 mg 08/20/21 06:02 08/26/21 14:26 Prochlorperazine 10 Mg/2 Ml Vial IVP 10 mg Q6HR PRN Administration Nausea / Vomiting Sodium Chloride 10 ml 08/20/21 06:02 09/02/21 12:33 Sodium Chloride Flush 0.9% 10 Ml Syringe IVP 10 ml PRN PRN Administration NEEDED PER PROVIDER ORDERS Sodium Chloride 10 ml 08/20/21 09:00 09/03/21 08:52 Sodium Chloride Flush 0.9% 10 Ml Syringe IVP 10 ml 0100,0900,1700 JAROD Administration Temazepam 15 mg 08/22/21 21:03 09/01/21 23:10 Temazepam 15 Mg Capsule PO 15 mg QPM PRN Administration Insomnia - Lab Result Fish Bone Diagrams: 09/03/21 04:55 09/03/21 04:55 - Additional Planning My Orders: My Active Orders 09/02/21 Dinner DIET [Dysphagia - Puree] [DIET] 09/02/21 17:00 Gabapentin [Neurontin] 100 mg PO TID 09/03/21 12:00 Lipase/Protease/Amylase [Pancrelipase Dr 5,000/17,000/27,000 Skilled Nursing] 1 cap PO TIDWM 09/03/21 Dinner DIET [Soft (Low Fiber) Diet] [DIET] 09/04/21 05:00 BMP - BASIC METABOLIC PANEL [CHEM] DAILYLAB CBC - COMP BLD CT W/AUTO DIFF [HEME] DAILYLAB MAGNESIUM [CHEM] DAILYLAB Subjective - Subjective Patient Reports: Feeling Better (Has no N/V for 2 days. Tolerated the pureed food, but has no appetite. No abd pain when swallows or drinks.) Objective Vital Signs: Vital Signs - 24 hr 09/02/21 09/02/21 09/03/21 15:43 23:51 08:11 Temperature 36.8 C 36.9 C 36.6 C Heart Rate [ 77 87 82 Brachial] Respiratory 16 18 18 Rate Blood Pressure 125/70 [Left Brachial artery] Blood Pressure 108/60 105/61 [Right Brachial artery] O2 Saturation 94 93 94 Oxygen O2 Source Room air I&O (Last 24 Hrs): Intake and Output Totals x24h 09/01/21 09/02/21 09/03/21 23:59 23:59 23:59 Intake Total 3154 1350 440 Output Total 2475 1750 900 Balance 679 -400 -460 General: Alert HEENT: Mucous membr. moist/pink Neck: Supple, No JVD Neuro: Alert, Non Focal Cardiovascular: Regular rate Respiratory: No respiratory distress Abdomen: Soft, No tenderness Extremities: No edema - Results Results: Laboratory Results WBC 8.6 x10^3/uL (4.8-10.8) 09/03/21 04:55 RBC 3.71 10^6/uL (4.70-6.10) L 09/03/21 04:55 Hgb 10.1 g/dL (14.0-18.0) L 09/03/21 04:55 Hct 32.9 % (42.0-52.0) L 09/03/21 04:55 MCV 88.7 fL (80.0-94.0) 09/03/21 04:55 MCH 27.2 pg (27.0-31.0) 09/03/21 04:55 MCHC 30.7 g/dL (32.0-36.0) L 09/03/21 04:55 RDW 16.5 % (12.0-15.0) H 09/03/21 04:55 Plt Count 465 10^3/uL (130-450) H 09/03/21 04:55 MPV 9.7 fL (7.4-11.4) 09/03/21 04:55 Neut # (Auto) 6.9 10^3/uL (1.5-6.6) H 09/03/21 04:55 Lymph # (Auto) 1.0 10^3/uL (1.5-3.5) L 09/03/21 04:[address] [place] # (Auto) 0.5 10^3/uL (0.0-1.0) 09/03/21 04:55 Eos # (Auto) 0.1 10^3/uL (0.0-0.7) 09/03/21 04:55 Baso # (Auto) 0.0 10^3/uL (0.0-0.1) 09/03/21 04:55 Absolute Nucleated RBC 0.00 x10^3/uL 09/03/21 04:55 Total Counted 100 08/26/21 04:59 Band Neuts % (Manual) 3 % (0-10) 08/26/21 04:59 Abnorm Lymph % (Manual) 0 % 08/26/21 04:59 Myelocytes % 1 % (-0) H 08/26/21 04:59 Nucleated RBC % 0.0 /100WBC 09/03/21 04:55 Neutrophils # (Manual) 12.0 10^3/uL (1.5-6.6) H 08/26/21 04:59 Lymphocytes # (Manual) 0.5 10^3/uL (1.5-3.5) L 08/26/21 04:59 Monocytes # (Manual) 0.5 10^3/uL (0.0-1.0) 08/26/21 04:59 Eosinophils # (Manual) 0.0 10^3/uL (0-0.7) 08/26/21 04:59 Basophils # (Manual) 0.0 10^3/uL (0-0.1) 08/26/21 04:59 Differential Comment MANUAL DIFFERENTIAL 08/26/21 04:59 WBC Morphology NORMAL APPEARANCE (NORMAL) 08/26/21 04:59 Platelet Estimate NORMAL (130-450,000) (NORMAL) 08/26/21 04:59 Platelet Morphology NORMAL APPEARANCE (NORMAL) 08/26/21 04:59 RBC Morph Micro Appear NORMAL APPEARANCE (NORMAL) 08/26/21 04:59 D-Dimer > 1050.0 ng/mL (200.0-255.0) H 08/21/21 22:44 Sodium 139 mmol/L (135-145) 09/03/21 04:55 Potassium 3.7 mmol/L (3.5-5.0) 09/03/21 04:55 Chloride 103 mmol/L (101-111) 09/03/21 04:55 Carbon Dioxide 26 mmol/L (21-32) 09/03/21 04:55 Anion Gap 10.0 (6-13) 09/03/21 04:55 BUN 10 mg/dL (6-20) 09/03/21 04:55 Creatinine 0.9 mg/dL (0.6-1.2) 09/03/21 04:55 Estimated GFR (MDRD) 84 (>89) L 09/03/21 04:55 Glucose 105 mg/dL (70-100) H 09/03/21 04:55 Lactic Acid 1.2 mmol/L (0.5-2.2) 08/22/21 05:02 Calcium 8.0 mg/dL (8.5-10.3) L 09/03/21 04:55 Phosphorus 2.6 mg/dL (2.5-4.6) 09/03/21 04:55 Magnesium 2.2 mg/dL (1.7-2.8) 09/03/21 04:55 Total Bilirubin 0.9 mg/dL (0.2-1.0) 09/03/21 04:55 Direct Bilirubin 0.5 mg/dL (0.1-0.5) 08/30/21 05:00 AST 52 IU/L (10-42) H 09/03/21 04:55 ALT 59 IU/L (10-60) 09/03/21 04:55 Alkaline Phosphatase 146 IU/L (42-121) H 09/03/21 04:55 Troponin I High Sens 3.4 ng/L (2.3-19.7) 08/20/21 02:55 Total Protein 6.5 g/dL (6.7-8.2) L 09/03/21 04:55 Albumin 2.4 g/dL (3.2-5.5) L 09/03/21 04:55 Globulin 4.1 g/dL (2.1-4.2) 09/03/21 04:55 Albumin/Globulin Ratio 0.6 (1.0-2.2) L 09/03/21 04:55 Prealbumin 13 mg/dL (18-45) L 09/03/21 04:55 Triglycerides 110 mg/dL (-149) 09/03/21 04:55 Lipase 40 U/L (22-51) 08/24/21 04:21 Nasal Adenovirus (PCR) NOT DETECTED 08/24/21 08:50 Nasal B. parapertussis DNA (PCR) NOT DETECTED 08/24/21 08:50 Nasal Coronavir 229E PCR NOT DETECTED 08/24/21 08:50 Nasal Coronavir HKU1 PCR NOT DETECTED 08/24/21 08:50 Nasal Coronavir NL63 PCR NOT DETECTED 08/24/21 08:50 Nasal Coronavir OC43 PCR NOT DETECTED 08/24/21 08:50 Nasal Enterovir/Rhinovir PCR NOT DETECTED 08/24/21 08:50 Nasal Influenza B PCR NOT DETECTED 08/24/21 08:50 Nasal Influenza A PCR NOT DETECTED 08/24/21 08:50 Nasal Parainfluen 1 PCR NOT DETECTED 08/24/21 08:50 Nasal Parainfluen 2 PCR NOT DETECTED 08/24/21 08:50 Nasal Parainfluen 3 PCR NOT DETECTED 08/24/21 08:50 Nasal Parainfluen 4 PCR NOT DETECTED 08/24/21 08:50 Nasal RSV (PCR) NOT DETECTED 08/24/21 08:50 Nasal B.pertussis DNA PCR NOT DETECTED 08/24/21 08:50 Nasal C.pneumoniae (PCR) NOT DETECTED 08/24/21 08:50 [place] Human Metapneumo PCR NOT DETECTED 08/24/21 08:50 Nasal M.pneumoniae (PCR) NOT DETECTED 08/24/21 08:50 Nasal SARS-CoV-2 (PCR) NOT DETECTED 08/24/21 08:50 Stl C. diff Tox B Gene NEGATIVE (NEGATIVE) 08/30/21 16:58 SARS-CoV-2 (PCR) NOT DETECTED 08/20/21 04:15 - Procedures Procedures: Procedures ENDOSC POLYPECTOMY OF LG INTEST (09/13/14) INJECT/INFUSE NEC (09/13/14)
--- NOTE | 2021-09-03 15:21 | PROVIDER PROGRESS NOTE ---
Subjective - General Admit Date: 08/20/21 - Review of Systems General: positive: Fatigue, Malaise Gastrointestinal: positive: Nausea - Other Other Information/Narrative: The pathologist, Dr. Person, called the office to report on Mr. Ocasio pathology. 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 He called as it would probably be 1 more day before the report makes it to the chart and the patient would benefit from earlier treatment. Objective - Patient Data Vital Signs: Vital Signs x48h Temp Pulse Resp BP Pulse Ox 09/03/21 08:11 36.6 C 82 18 105/61 94 Weight: Weight 09/01/21 09/02/21 09/03/21 23:59 23:59 23:59 Weight (kg) 104 kg 102.5 kg 101.5 kg Intake & Output: Intake and Output Totals x24h 09/01/21 09/02/21 09/03/21 23:59 23:59 23:59 Intake Total 3154 1350 440 Output Total 2475 1750 900 Balance 679 400 -460 - Lab Results Lab Results: 09/03/21 04:55 09/03/21 04:55 Other Lab Results: Lab Results x24hrs 09/03/21 09/03/21 Range/Units 04:55 04:55 WBC 8.6 (4.8-10.8) x10^3/uL RBC 3.71 L (4.70-6.10) 10^6/uL Hgb 10.1 L (14.0-18.0) g/dL Hct 32.9 L (42.0-52.0) % MCV 88.7 (80.0-94.0) fL MCH 27.2 (27.0-31.0) pg MCHC 30.7 L (32.0-36.0) g/dL RDW 16.5 H (12.0-15.0) % Plt Count 465 H (130-450) 10^3/uL MPV 9.7 (7.4-11.4) fL Neut # (Auto) 6.9 H (1.5-6.6) 10^3/uL Lymph # (Auto) 1.0 L (1.5-3.5) 10^3/uL [place] # (Auto) 0.5 (0.0-1.0) 10^3/uL Eos # (Auto) 0.1 (0.0-0.7) 10^3/uL Baso # (Auto) 0.0 (0.0-0.1) 10^3/uL Absolute Nucleated RBC 0.00 x10^3/uL Nucleated RBC % 0.0 /100WBC Sodium 139 (135-145) mmol/L Potassium 3.7 (3.5-5.0) mmol/L Chloride 103 (101-111) mmol/L Carbon Dioxide 26 (21-32) mmol/L Anion Gap 10.0 (6-13) BUN 10 (6-20) mg/dL Creatinine 0.9 (0.6-1.2) mg/dL Estimated GFR (MDRD) 84 L (>89) Glucose 105 H (70-100) mg/dL Calcium 8.0 L (8.5-10.3) mg/dL Phosphorus 2.6 (2.5-4.6) mg/dL Magnesium 2.2 (1.7-2.8) mg/dL Total Bilirubin 0.9 (0.2-1.0) mg/dL AST 52 H (10-42) IU/L ALT 59 (10-60) IU/L Alkaline Phosphatase 146 H (42-121) IU/L Total Protein 6.5 L (6.7-8.2) g/dL Albumin 2.4 L (3.2-5.5) g/dL Globulin 4.1 (2.1-4.2) g/dL Albumin/Globulin Ratio 0.6 L (1.0-2.2) Prealbumin 13 L (18-45) mg/dL Triglycerides 110 ( - 149) mg/dL - Current Medications Current Medications: Current Medications Generic Name Dose Route Start Last Admin Trade Name Freq PRN Reason Stop Dose Admin Acetaminophen 650 mg 08/23/21 07:06 09/01/21 18:59 Acetaminophen 325 Mg Tablet PO 650 mg Q4HR PRN Administration Pain or Fever > 38C (100.4F) Lipase/Protease/Amylase 1 cap 09/03/21 12:00 09/03/21 12:09 Lipase/Protease/Amylase Capsule PO 1 cap TIDWM JAROD Administration Enoxaparin Sodium 40 mg 08/23/21 09:00 09/03/21 08:55 Enoxaparin 40 Mg/0.4 Ml Syringe SUBQ 40 mg DAILY JAROD Administration Gabapentin 100 mg 09/02/21 17:00 09/03/21 14:00 Gabapentin 100 Mg Capsule PO 100 mg TID JAROD Administration Fluconazole 100 mls @ 100 mls/hr 08/30/21 09:00 09/03/21 10:00 Diflucan 200 Mg/100 Ml IV Infused DAILY JAROD Infusion Loperamide HCl 2 mg 08/30/21 19:20 08/31/21 10:08 Loperamide 2 Mg Capsule PO 2 mg QID PRN Administration Diarrhea Metoclopramide HCl 5 mg 09/01/21 18:00 09/03/21 12:09 Metoclopramide 10 Mg/2 Ml Vial IVP 5 mg Q6HR JAROD Administration Ondansetron HCl 4 mg 08/20/21 06:02 09/01/21 12:58 Ondansetron 4 Mg/2 Ml Vial IVP 4 mg Q6HR PRN Administration Nausea / Vomiting Oxycodone HCl 5 mg 08/22/21 07:40 08/29/21 03:04 Oxycodone 5 Mg Tablet PO 5 mg Q4HR PRN Administration PAIN Pantoprazole Sodium 40 mg 08/29/21 21:00 09/03/21 08:52 Pantoprazole 40 Mg Vial IVP 40 mg BID JAROD Administration Prochlorperazine Edisylate 10 mg 08/20/21 06:02 08/26/21 14:26 Prochlorperazine 10 Mg/2 Ml Vial IVP 10 mg Q6HR PRN Administration Nausea / Vomiting Sodium Chloride 10 ml 08/20/21 06:02 09/02/21 12:33 Sodium Chloride Flush 0.9% 10 Ml Syringe IVP 10 ml PRN PRN Administration NEEDED PER PROVIDER ORDERS Sodium Chloride 10 ml 08/20/21 09:00 09/03/21 08:52 Sodium Chloride Flush 0.9% 10 Ml Syringe IVP 10 ml 0100,0900,1700 JAROD Administration Temazepam 15 mg 08/22/21 21:03 09/01/21 23:10 Temazepam 15 Mg Capsule PO 15 mg QPM PRN Administration Insomnia
[2021-09-03] MEDS ORDERED: GABAPENTIN 100 MG CAPSULE PO ONE (15:50)
[2021-09-03 16:46] LABS: HIV RAPID SCREEN NEGATIVE (NEGATIVE)
[2021-09-03] MEDS: ACYCLOVIR 200 MG CAPSULE PO SCH ×2 (17:28→21:19)
[2021-09-03] MEDS: TEMAZEPAM 15 MG CAPSULE PO PRN (21:18)
[2021-09-04 05:10] LABS: HIV SCREEN 4TH GENERATION Non Reactive (Non Reactive)
[2021-09-04 05:32] LABS: BASOPHILS % (AUTO) 0.3 %; EOSINOPHILS # (AUTO) 0.1 10^3/uL (0.0-0.7); HCT - HEMATOCRIT 34.4 % (42.0-52.0); HGB - HEMOGLOBIN 10.4 g/dL (14.0-18.0); LYMPHOCYTES % (AUTO) 11.7 %; MEAN CORPUSCULAR HEMOGLOBIN 26.9 pg (27.0-31.0); MEAN CORPUSCULAR HGB CONC 30.2 g/dL (32.0-36.0); MEAN CORPUSCULAR VOLUME 88.9 fL (80.0-94.0); MEAN PLATELET VOLUME 9.5 fL (7.4-11.4); MONOCYTES # (AUTO) 0.6 10^3/uL (0.0-1.0); MONOCYTES % (AUTO) 6.7 %; NEUTROPHILS # (AUTO) 7.1 10^3/uL (1.5-6.6); PLT - PLATELET COUNT 556 10^3/uL (130-450); RED BLOOD COUNT 3.87 10^6/uL (4.70-6.10); RED CELL DISTRIBUTION WIDTH 16.5 % (12.0-15.0); WHITE BLOOD COUNT 8.8 x10^3/uL (4.8-10.8)
[2021-09-04] MEDS: GABAPENTIN 100 MG CAPSULE PO SCH ×2 (05:50→13:28)
[2021-09-04] MEDS: METOCLOPRAMIDE 10 MG/2 ML VIAL IVP SCH ×2 (05:50→12:26)
[2021-09-04] MEDS: ACYCLOVIR 200 MG CAPSULE PO SCH ×3 (05:50→13:28)
[2021-09-04 05:57] LABS: CALCIUM 8.3 mg/dL (8.5-10.3); CREATININE 0.9 mg/dL (0.6-1.2); MAGNESIUM 2.4 mg/dL (1.7-2.8); POTASSIUM 3.6 mmol/L (3.5-5.0)
[2021-09-04 08:40] VITALS: BP 124/70
[2021-09-04] MEDS: LIPASE/PROTEASE/AMYLASE CAPSULE PO SCH ×2 (08:56→12:26)
[2021-09-04] MEDS: SODIUM CHLORIDE FLUSH 0.9% 10 ML SYRINGE IVP SCH (08:56)
[2021-09-04] MEDS: PANTOPRAZOLE 40 MG VIAL IVP SCH (08:56)
[2021-09-04] MEDS: FLUCONAZOLE 200 MG/100 ML 100 ML IV SCH (09:02)
[2021-09-04] MEDS: ENOXAPARIN 40 MG/0.4 ML SYRINGE SUBQ SCH (09:02)
[2021-09-04] MEDS: SODIUM CHLORIDE FLUSH 0.9% 10 ML SYRINGE IVP PRN (12:29)
--- NOTE | 2021-09-04 13:31 | Discharge Plan ---
Discharge Plan Problem Reviewed?: Yes Disposition: Home, Self Care Condition: Fair Prescriptions: Fluconazole [Diflucan] 100 mg PO BID #60 tablet Gabapentin [Neurontin] 200 mg PO TID PRN #60 cap PRN Reason: Hiccups Lipase/Protease/Amylase [Pancrelipase Dr 5,000/17,000/27,000 Long-Term] 1 cap PO TIDWM #90 cap Acyclovir [Zovirax] 400 mg PO 5XD 6 Days #60 cap Diet: Soft (Low fat, low fiber diet, advance on your own as tolerated) Activity Restrictions: Activity as Tolerated Shower Restrictions: No Driving Restrictions: No Instruction Topics: Gabapentin capsules or tablets, Acyclovir tablets or capsules, Fluconazole tablets, Esophagitis, Duodenitis, Diet Soft Dc Health Concerns: You were admitted with nausea and vomiting and diagnosed with pancreatitis. You had a prolonged course of nausea and vomiting and upper endoscopy needed to be done. This showed that you had undigested pills and also inflammation of the e sophagus and duodenum (esophagitis and duodenitis). 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 The treatment for this is Acyclovir and Fluconazole. We tested you for AIDS and this has come back negative. You are being discharged and advised to eat a soft diet, bland, and not spicy, low in fat and low in fiber. Also stay well-hydrated. Our Hydrologic Engineer provided you with ideas for a proper diet and fluids to take in. You may advance your diet to a normal diet when you can tolerate it. Prescriptions are also being provided for helping with digestion and also for hiccups and for nausea, if needed. You should have a follow-up with your Primary Care doctor in the next 1 to 2 weeks for further management of the esophagitis, duodenitis and pancreatitis. You may need referral to a Poured Wall Foreman or an Infectious Disease specialist. Since you have no primary care doctor, an appointment has been set up for you to see ERICK Brower on 09/15/21 at 4 pm at the [facility]. Plan of Treatment: As above. New prescriptions were electronically sent to your [facility] pharmacy in [place]. Care Goals: Improvement in symptoms and stabilization are the goals. Assessment: The patient understands and is agreeable with the plan. Additional Instructions or Follow Up instructions: If you have new or worsening symptoms, call your Primary Care Provider for adv ice or come to the Emergency Department. No Smoking: If you smoke, Please STOP! Call for help.
--- NOTE | 2021-09-04 14:41 | DISCHARGE SUMMARY ---
Discharge Summary Admit Date: 08/20/21 Discharge Date: 09/04/21 Discharging Provider: Dr Cici Paige MD Primary Care Provider: ERICK Brower Code Status: Attempt Resuscitation Condition at Discharge: Fair Discharge Disposition: 01 Home, Self Care - DIAGNOSES Admission Diagnoses: (1) Acute pancreatitis (2) Leukocytosis (3) Lactic acidosis - HPI History of Present Illness: From the admission H&P of Dr. Shannon Reece: Patient is a 66-year-old white male who presented to the ED with complaint of severe epigastric pain which he describes as a dull ache. He also complains of radiation to his back. Specifically the mid thoracic area. Symptoms started around 10:30 PM the previous night. He had just eaten a chicken pot pie couple of hours prior and thought his symptoms were due to food poisoning. The abdominal pain was associated with a feeling of abdominal distention. The symptoms subsided 2 hours after onset but then returned intensely. He took NyQuil and aspirin in an attempt to address the pain but with no success. As a result he came to the emergency department. Upon arrival to the ED he vomited around 3 AM. Work-up included a lipase level check which was 1404. His white blood cell count was elevated at 18.2. CT of the abdomen/pelvis showed findings of acute pancreatitis. There was punctate calcification in the pancreatic head near the expected location of the common bile duct. Gallstone pancreatitis was in consideration. The patient was presented for admission for further treatment. At the time of exam the patient had already received 2 doses of Dilaudid 1 mg each and fentanyl 50 mg however he appeared restless and in an excruciating amount of pain. It was such that he was unable to stay in 1 position for any length of time. The patient denied chest pain, dyspnea, fever or chills. For concern about an acute (surgical) abdomen, lactic acid was checked and noted to be 4.8. CT Angio of the abdomen/pelvis was done and noted to be unremarkable. There was no evidence of large vessel stenosis, aneurysm or dissection. The acute pancreatitis was again noted without evidence of abscess, free air or pancreatic necrosis. - CONSULTS | PROCEDURES Consultations: Dr Reynolds Procedures: EGD - HOSPITAL COURSE Hospital Course: (1) Acute pancreatitis It was initially felt this may have been due to biliary sludge. He was kept NPO, started on iv fluids, pain meds, and anti-emetics. Because of persistent N/V and intermittent abdominal pain, a repeat CT was done and showed ongoing per ipancreatic edema and pseudocyst. (2) Intractable nausea and vomiting This was present for a prolonged period of time, even after his Lipase returned to normal. It very much prolonged his hospitalization. He therefore had repeat CT abdomen which revealed duodenitis, esophagitis, and resolving pancreatitis. An EGD was also done and showed esophagitis as well as duodenitis. He received iv fluids, several days of PPN, and was on anti-emetics, and we tried Reglan, for delayed gastric emptying (since undigested pills were seen on EGD). Eventually he could tolerate clear liquids and some soft or pureed foods. (3) Herpes Esophagitis He underwent an EGD by Dr Reynolds, and biopsies were taken. Evident on the EGD was concern for potential Karyn, although he has no known risk factors. He was put on on empiric treatment with fluconazole as we awaited the biopsy results. The pathology report showed both Herpes and Fungal esophagitis. Acyclovir was added and he had AIDS testing, which returned negative. He was discharged to take both Fluconazole and Acyclovir. (4) Duodenitis This was likey related to the intractable N/V from pancreatitis, as there was evidence of duodenitis on the EGD. He was put on twice daily PPI. (5) Hiccups These were present for nearly a week, on and off, could last over an hour and were causing nausea. He was put on Gabapentin 3 times daily empirically and this helped. (6) Severe protein calorie malnutrition The patient has had a weight loss of 7% over 2 weeks (8 kg loss), and he had a decreased oral intake for the last 2 weeks of less than 50% of his energy needs. He describes "no appetite". He was urged to take high protein drinks like Ensure Clear. (7) Diarrhea There were several days of diarrhea, which soon resolved. C. difficile was negative. (8) Community acquired pneumonia He was treated for potential right lower lobe infiltrate seen at admission, although in hindsight, we suspected this was likely atelectasis, given lack of dyspnea, fever, cough. Antibiotics were discontinued. (9) Hypokalemia It was secondary to GI losses and we gave supplement when needed. (10) Leukocytosis This resolved and was likely due to the possible pneumonia and also reactive, due to intractable nausea and vomiting - ALLERGIES Allergies/Adverse Reactions: Allergies Allergy/AdvReac Type Severity Reaction Status Date / Time No Known Drug Allergies Allergy Verified 08/20/21 02:46 - MEDICATIONS Home Medications: Ambulatory Orders Medication Instructions Recorded Confirmed Acetaminophen [Tylenol] 650 mg PO Q4HR PRN tablet 09/04/21 09/07/21 Acyclovir [Zovirax] 400 mg PO 5XD 6 Days #60 cap 09/04/21 09/07/21 Fluconazole [Diflucan] 100 mg PO BID #60 tablet 09/04/21 09/07/21 Gabapentin [Neurontin] 200 mg PO TID PRN #60 cap 09/04/21 09/07/21 Lipase/Protease/Amylase 1 cap PO TIDWM #90 cap 09/04/21 09/07/[address] [Pan[address]lip[address] Dr 5,000/17,000/27,000 Skilled Nursing] - PHYSICAL EXAM AT DISCHARGE General Appearance: positive: No acute distress, Alert Eyes Bilateral: positive: Normal inspection, EOMI ENT: positive: ENT inspection nml, No signs of dehydration Neck: positive: Nml inspection, No JVD Respiratory: positive: No respiratory distress, Breath sounds nml Cardiovascular: positive: Regular rate & rhythm, No murmur Abdomen: positive: Non-tender, Nml bowel sounds, No distention Skin: positive: Warm, Dry Extremities: positive: Non-tender, No pedal edema Neurologic/Psychiatric: positive: Oriented x3 (Non-focal) - LABS Result Diagrams: 09/04/21 04:46 09/04/21 04:46 - DIAGNOSTIC IMAGING Diagnostic Imaging Results: Final report reviewed - FOLLOW UP Follow Up: A new PCP and appointment was arranged in several days for the patient. - TIME SPENT Time Spent in Discharge (Minutes): 60
== END 2021-09-04 15:03 | disposition home or self-care (01) | DRG 438 ==
LOC: ED 02:29 → MS2 06:02
PROVIDERS: ADMIT Internal Medicine; ATTEND Internal Medicine
PROC: 0DB68ZX Excision of Stomach, Via Natural or Artificial Opening Endoscopic, Diagnostic (ICD-10-PCS; 2021-08-29)
PROC: 0DB58ZX Excision of Esophagus, Via Natural or Artificial Opening Endoscopic, Diagnostic (ICD-10-PCS; 2021-08-29)
PROC: 0DB98ZX Excision of Duodenum, Via Natural or Artificial Opening Endoscopic, Diagnostic (ICD-10-PCS; principal; 2021-08-29 15:15)
DX: K85.00 Idiopathic acute pancreatitis without necrosis or infection (principal); E43 Unspecified severe protein-calorie malnutrition; B00.89 Other herpesviral infection; E87.2 Acidosis; B37.81 Candidal esophagitis; R11.2 Nausea with vomiting, unspecified; K29.80 Duodenitis without bleeding; R06.6 Hiccough; R19.7 Diarrhea, unspecified; E87.6 Hypokalemia; D72.829 Elevated white blood cell count, unspecified; R35.0 Frequency of micturition; Z20.822 Contact with and (suspected) exposure to COVID-19; K59.03 Drug induced constipation; T40.605A Adverse effect of unspecified narcotics, initial encounter; Y92.230 Patient room in hospital as the place of occurrence of the external cause; R06.2 Wheezing; Z68.33 Body mass index [BMI] 33.0-33.9, adult; K20.80 Other esophagitis without bleeding
CPT/HCPCS: 36415; 71045; 71275; 74018; 74174; 74176; 76705; 80048; 80053; 80076; 83605; 83690; 83735; 84100; 84134; 84478; 84484; 85025; 85379; 86703; 87040; 87493; 87633; 87635; 93005; 94640; 96374; 96375; 96376; 99284; 99285; A9270; G0475; J1170; J1650; J2765; J3490; J7120; Q9963; Q9967; 87389; 87536

== ENCOUNTER 2022-01-19 09:03 | Outpatient (CLI) | payer MEDICARE, OTHER ==
--- NOTE | 2022-01-19 10:05 | XRAY Report ---
PROCEDURE: Chest 2 View X-Ray INDICATIONS: COUGH TECHNIQUE: 2 views of the chest were acquired. COMPARISON: 08/21/2021 FINDINGS: Normal cardiomediastinal contour and central vasculature. Clear lungs. No consolidations, effusion, o r pneumothorax. Visible osseous structures and overlying soft tissues are normal. IMPRESSION: No acute cardiopulmonary disease. Reviewed by: Rut Raymundo MD on 01/19/2022 10:04 AM PDT Approved by: Rut Raymundo MD on 01/19/2022 10:04 AM PDT Station ID: [id number]
== END 2022-01-19 09:04 | disposition home or self-care (01) ==
LOC: DI.N 09:03
PROVIDERS: ATTEND Emergency Medicine
DX: R05.9 Cough, unspecified (principal)

== ENCOUNTER 2022-04-20 08:56 | Outpatient (CLI) | payer MEDICARE, OTHER ==
[2022-04-20 09:14] LABS: BASOPHILS % (AUTO) 0.6 %; EOSINOPHILS # (AUTO) 0.1 10^3/uL (0.0-0.7); HGB - HEMOGLOBIN 11.5 g/dL (14.0-18.0); LYMPHOCYTES # (AUTO) 0.7 10^3/uL (1.5-3.5); LYMPHOCYTES % (AUTO) 10.4 %; MEAN CORPUSCULAR HEMOGLOBIN 26.4 pg (27.0-31.0); MEAN CORPUSCULAR HGB CONC 31.1 g/dL (32.0-36.0); MEAN CORPUSCULAR VOLUME 84.9 fL (80.0-94.0); MEAN PLATELET VOLUME 10.9 fL (7.4-11.4); MONOCYTES # (AUTO) 0.5 10^3/uL (0.0-1.0); MONOCYTES % (AUTO) 7.3 %; NEUTROPHILS # (AUTO) 5.7 10^3/uL (1.5-6.6); NEUTROPHILS % (AUTO) 79.6 %; PLT - PLATELET COUNT 351 10^3/uL (130-450); RED BLOOD COUNT 4.36 10^6/uL (4.70-6.10); RED CELL DISTRIBUTION WIDTH 23.9 % (12.0-15.0); WHITE BLOOD COUNT 7.1 x10^3/uL (4.8-10.8)
[2022-04-20 09:16] LABS: SLIDE REVIEW? Indicated
[2022-04-20 09:27] LABS: GLUCOSE, URINE (UA) NEGATIVE (NEGATIVE); KETONES,URINE (UA) NEGATIVE (NEGATIVE); LEUKOCYTE ESTERASE, URINE NEGATIVE (NEGATIVE); NITRITE,URINE NEGATIVE (NEGATIVE); OCCULT BLOOD,URINE TRACE-INTA (NEGATIVE); PH,URINE 6.5 PH (5.0-7.5); PROTEIN,URINE 30 mg/dL (NEGATIVE); UROBILINOGEN,URINE 1 (NORMAL) E.U./dL (NORMAL)
[2022-04-20 09:31] LABS: CLARITY,URINE CLEAR (CLEAR)
[2022-04-20 09:38] LABS: ALBUMIN 2.5 g/dL (3.2-5.5); ALBUMIN/GLOBULIN RATIO 0.5 (1.0-2.2); BILIRUBIN,TOTAL 13.5 mg/dL (0.2-1.0); CALCIUM 8.5 mg/dL (8.5-10.3); CREATININE 0.7 mg/dL (0.6-1.2); CRP - C-REACTIVE PROTEIN 12.4 mg/dL (0-1.0); TOTAL PROTEIN 7.7 g/dL (6.7-8.2)
[2022-04-20 09:49] LABS: BILIRUBIN,URINE LARGE (NEGATIVE); ICTOTEST,URINE POSITIVE
[2022-04-20 10:29] LABS: BACTERIA,URINE Few /HPF (None Seen); RBC,URINE 0-5 /HPF (0-5); SQUAMOUS EPITHELIAL CELL,UR FEW Squamous (<= Few); WBC,URINE 0-3 /HPF (0-3)
[2022-04-20 10:30] LABS: MUCUS,URINE Few Strands
[2022-04-20 13:33] LABS: ESTIMATED AVERAGE GLUCOSE 103 mg/dL (70-100); HEMOGLOBIN A1c% 5.2 % (4.27-6.07)
== END 2022-04-20 08:57 | disposition home or self-care (01) ==
LOC: LAB 08:56
PROVIDERS: ATTEND Nurse Practitioner
DX: K85.91 Acute pancreatitis with uninfected necrosis, unspecified (principal); R53.1 Weakness
CPT/HCPCS: 36415; 80053; 81001; 82150; 83036; 83690; 85025; 85651; 86140; 87086

== ENCOUNTER 2022-04-29 10:21 | Outpatient (CLI) | payer MEDICARE, OTHER ==
[2022-04-29 11:26] LABS: BASOPHILS # (AUTO) 0.1 10^3/uL (0.0-0.1); BASOPHILS % (AUTO) 0.8 %; EOSINOPHILS # (AUTO) 0.2 10^3/uL (0.0-0.7); EOSINOPHILS % (AUTO) 2.6 %; HCT - HEMATOCRIT 39.4 % (42.0-52.0); HGB - HEMOGLOBIN 11.6 g/dL (14.0-18.0); LYMPHOCYTES # (AUTO) 1.1 10^3/uL (1.5-3.5); MEAN CORPUSCULAR HEMOGLOBIN 27.7 pg (27.0-31.0); MEAN CORPUSCULAR HGB CONC 29.4 g/dL (32.0-36.0); MEAN PLATELET VOLUME 10.6 fL (7.4-11.4); MONOCYTES # (AUTO) 0.3 10^3/uL (0.0-1.0); MONOCYTES % (AUTO) 5.1 %; NEUTROPHILS % (AUTO) 74.2 %; PLT - PLATELET COUNT 405 10^3/uL (130-450); RED BLOOD COUNT 4.19 10^6/uL (4.70-6.10); WHITE BLOOD COUNT 6.7 x10^3/uL (4.8-10.8)
[2022-04-29 11:47] LABS: ALBUMIN 2.7 g/dL (3.2-5.5); ALBUMIN/GLOBULIN RATIO 0.5 (1.0-2.2); BILIRUBIN,TOTAL 3.8 mg/dL (0.2-1.0); CALCIUM 8.7 mg/dL (8.5-10.3); POTASSIUM 3.9 mmol/L (3.5-5.0); TOTAL PROTEIN 7.9 g/dL (6.7-8.2)
[2022-04-29 11:53] LABS: PLATELET ESTIMATE, MANUAL DECREASED (<130,000) (NORMAL); PLATELET MORPHOLOGY NORMAL APPEARANCE (NORMAL); SLIDE REVIEW? Indicated
== END 2022-04-29 10:22 | disposition home or self-care (01) ==
LOC: LAB.N 10:21
PROVIDERS: ATTEND Nurse Practitioner
DX: K85.91 Acute pancreatitis with uninfected necrosis, unspecified (principal)
CPT/HCPCS: 36415; 80053; 85025

== ENCOUNTER 2022-05-14 12:19 | Outpatient (CLI) | payer MEDICARE, OTHER ==
[2022-05-14] MEDS ORDERED: iohexoL-300 100 ML VIAL ONE (12:28)
[2022-05-14] MEDS ORDERED: DIATRIZOATE MEGLU/DIATRIZO SOD 30 ML BOTTLE PO ONE (14:09)
[2022-05-14] MEDS ORDERED: iohexoL-300 100 ML VIAL IVP ONE (14:09)
--- NOTE | 2022-05-20 13:00 | CT Report ---
PROCEDURE: ABDOMEN/PELVIS W INDICATIONS: NECROTIZING PANCREATITIS CONTRAST: 100ml Omnipaque 300 TECHNIQUE: After the administration of oral and intravenous contrast, 5 mm thick sections acquired from the diap hragms to the symphysis. 5 mm thick coronal and sagittal reformats were acquired. For radiation dos e reduction, the following was used: automated exposure control, adjustment of mA and/or kV accordin g to patient size. COMPARISON: 04/21/2022 from [facility], 09/07/[address] of the abdomen and pelvis from [facility] 08/20/2021 CTA abdomen and pelvis. FINDINGS: Image quality: Excellent. ABDOMEN: Lung bases: Lung bases are clear. Heart size is normal. Pancreas: Interval placement of a double-J Silastic drain which drained the massive pancreatic pseudo cyst into the stomach. The pseudocyst now resolved. The drain is in place. There is low density prese nt in the region of the pancreatic head and neck. This most likely is related to necrotizing pancreat itis. However, a malignant mass is not excluded. Other solid organs: Liver and spleen are normal in size and enhancement. Numerous hepatic cysts, as before. Intrahepatic biliary ductal dilatation. No solid liver masses. Again noted is probable flash filling of a small hemangioma near the dome of the liver on image 9/3. Gallbladder is unremarkable. Continued dilatation of the biliary tree from the head of the pancreas, where the duct traverses the nonenhancing portion of the pancreas. No adrenal nodules. Kidneys demonstrate normal size and enhanc ement, without hydronephrosis. Peritoneum and bowel: As noted on the recent prior study, there is a probable large cecal mass. There are subjacent prominent right lower quadrant lymph nodes. No free fluid or air. Nodes and vessels: No retroperitoneal or mesenteric adenopathy by size criteria. Aorta and inferior vena cava are normal in size. Chronic splenic vein and SMV thrombosis. Miscellaneous: No ventral hernias. PELVIS: Genitourinary: Bladder wall thickness is normal. Severe prostatomegaly. Miscellaneous: No inguinal hernias or adenopathy. Bones: No suspicious bony lesions. No vertebral body compression fractures. IMPRESSION: 1. Interval transgastric drainage of a previously very large pancreatic pseudocyst, which has resolve d. 2. There is nonenhancement/low density involving the pancreatic head and uncinate process. 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 However, cannot exclude malignancy. 3. Continued biliary obstruction at the level of the head of the pancreas. 4. 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 5. Probable large cecal mass. There is adjacent lymph nodes which are prominent, possibly representin g metastatic disease. Comments: Consider colonoscopy if this is not yet been performed to evaluate the probable large cecal mass. Consider multiphase pancreas protocol MRI to evaluate the hypoattenuating head and uncinate pr ocess of the pancreas. Reviewed by: Shree Shoemaker MD on 05/20/2022 12:59 PM PST Approved by: Shree Shoemaker MD on 05/20/2022 12:59 PM PST Station ID: [id number]
== END 2022-05-14 12:20 | disposition home or self-care (01) ==
LOC: DI 12:19
PROVIDERS: ATTEND Nurse Practitioner
DX: K85.01 Idiopathic acute pancreatitis with uninfected necrosis (principal); K83.1 Obstruction of bile duct; K55.059 Acute (reversible) ischemia of intestine, part and extent unspecified; I82.891 Chronic embolism and thrombosis of other specified veins
CPT/HCPCS: 74177; Q9963; Q9967

== ENCOUNTER 2022-06-05 10:55 | Outpatient (CLI) | payer MEDICARE, OTHER ==
[2022-06-05 18:03] LABS: BASOPHILS % (AUTO) 0.5 %; EOSINOPHILS # (AUTO) 0.2 10^3/uL (0.0-0.7); EOSINOPHILS % (AUTO) 3.6 %; HCT - HEMATOCRIT 37.2 % (42.0-52.0); LYMPHOCYTES % (AUTO) 16.9 %; MEAN CORPUSCULAR HEMOGLOBIN 28.4 pg (27.0-31.0); MEAN CORPUSCULAR HGB CONC 29.6 g/dL (32.0-36.0); MEAN CORPUSCULAR VOLUME 95.9 fL (80.0-94.0); MONOCYTES # (AUTO) 0.4 10^3/uL (0.0-1.0); MONOCYTES % (AUTO) 7.4 %; NEUTROPHILS # (AUTO) 4.2 10^3/uL (1.5-6.6); NEUTROPHILS % (AUTO) 71.3 %; PLT - PLATELET COUNT 285 10^3/uL (130-450); RED BLOOD COUNT 3.88 10^6/uL (4.70-6.10); RED CELL DISTRIBUTION WIDTH 14.9 % (12.0-15.0); WHITE BLOOD COUNT 5.9 x10^3/uL (4.8-10.8)
[2022-06-05 18:25] LABS: ALBUMIN 3.3 g/dL (3.2-5.5); ALBUMIN/GLOBULIN RATIO 0.8 (1.0-2.2); BILIRUBIN,TOTAL 0.8 mg/dL (0.2-1.0); CALCIUM 8.4 mg/dL (8.5-10.3); CREATININE 1.1 mg/dL (0.6-1.2); POTASSIUM 3.6 mmol/L (3.5-5.0); TOTAL PROTEIN 7.6 g/dL (6.7-8.2)
== END 2022-06-05 10:56 | disposition home or self-care (01) ==
LOC: LAB.N 10:55
PROVIDERS: ATTEND Nurse Practitioner
DX: K85.91 Acute pancreatitis with uninfected necrosis, unspecified (principal); K63.9 Disease of intestine, unspecified; E87.6 Hypokalemia
CPT/HCPCS: 36415; 80053; 82150; 83690; 85025

== ENCOUNTER 2023-05-27 09:22 | Outpatient (CLI) | payer MEDICARE, OTHER ==
[2023-05-27 12:27] LABS: BASOPHILS % (AUTO) 0.6 %; EOSINOPHILS # (AUTO) 0.2 10^3/uL (0.0-0.7); EOSINOPHILS % (AUTO) 3.6 %; HCT - HEMATOCRIT 35.7 % (42.0-52.0); HGB - HEMOGLOBIN 10.7 g/dL (14.0-18.0); LYMPHOCYTES # (AUTO) 1.3 10^3/uL (1.5-3.5); LYMPHOCYTES % (AUTO) 24.7 %; MEAN CORPUSCULAR HEMOGLOBIN 25.8 pg (27.0-31.0); MEAN CORPUSCULAR VOLUME 86.2 fL (80.0-94.0); MEAN PLATELET VOLUME 10.2 fL (7.4-11.4); MONOCYTES # (AUTO) 0.5 10^3/uL (0.0-1.0); MONOCYTES % (AUTO) 9.3 %; NEUTROPHILS # (AUTO) 3.1 10^3/uL (1.5-6.6); NEUTROPHILS % (AUTO) 61.6 %; PLT - PLATELET COUNT 223 10^3/uL (130-450); RED BLOOD COUNT 4.14 10^6/uL (4.70-6.10); RED CELL DISTRIBUTION WIDTH 16.9 % (12.0-15.0); WHITE BLOOD COUNT 5.1 x10^3/uL (4.8-10.8)
[2023-05-27 12:56] LABS: THYROID STIMULATING HORMONE 1.66 uIU/mL (0.34-5.60)
[2023-05-27 13:02] LABS: ALBUMIN 3.7 g/dL (3.2-5.5); ALKALINE PHOSPHATASE 160 IU/L (42-121); ALT ALANINE AMINOTRANSFERASE 17 IU/L (10-60); AST ASPARTATE AMINOTRANSFERASE 24 IU/L (10-42); BILIRUBIN,TOTAL 0.5 mg/dL (0.2-1.0); BUN - BLOOD UREA NITROGEN 10 mg/dL (6-20); CALCIUM 8.9 mg/dL (8.5-10.3); CARBON DIOXIDE - CO2 25 mmol/L (21-32); CHLORIDE 109 mmol/L (101-111); CHOL/HDL RATIO 2.6 (<5.0); CHOLESTEROL 134 mg/dL; CREATININE 0.8 mg/dL (0.6-1.3); GFR - MDRD 96 (>89); GLUCOSE 110 mg/dL (74-104); HDL CHOLESTEROL 51 mg/dL; LDL CHOLESTEROL,CALCULATED 62 mg/dL; LDL/HDL RATIO 1.2 (<3.6); POTASSIUM 3.6 mmol/L (3.5-4.5); SODIUM 138 mmol/L (135-145); TOTAL PROTEIN 7.5 g/dL (6.4-8.9); TRIGLYCERIDES 104 mg/dL (48-352); VLDL CHOLESTEROL 21 mg/dL
== END 2023-05-27 09:23 | disposition home or self-care (01) ==
LOC: LAB.N 09:22
PROVIDERS: ATTEND Nurse Practitioner
DX: R53.83 Other fatigue (principal); Z13.220 Encounter for screening for lipoid disorders; Z12.5 Encounter for screening for malignant neoplasm of prostate
CPT/HCPCS: 36415; 80053; 80061; 84443; 85025; G0103; 83721; 84153